=== PATIENT | male | born 1990 | race Two or more races ===

== ENCOUNTER 2019-05-22 11:56 | Inpatient (IN) | payer BC ==
[2019-05-22] VITALS (8 sets, daily range): BP systolic 66–141; BP diastolic 33–76
[~2019-05-22] VITALS: Ht 180.3 cm; Wt 232.7 kg
[2019-05-22] MEDS ORDERED: VANCOMYCIN PER PHARMACY MC PRN (12:45)
[2019-05-22] MEDS: IV NORMAL SALINE 1000ML BAG 1,000 ML IV SCH ×5 (12:47→23:58)
[2019-05-22 12:50] LABS: BASO % 0 % (0-3); EOS % 0 % (0-3); HEMATOCRIT 49.2 % (39.0-53.0); HEMOGLOBIN 16.6 g/dL (13.0-17.5); LYMPH # 0.5 x10^3/uL (1.0-4.8); LYMPH % 2 % (24-48); MEAN CORPUSCULAR HEMOGLOBIN 29 pg (25-35); MEAN CORPUSCULAR HGB CONC 34 g/dL (31-37); MEAN CORPUSCULAR VOLUME 85 fL (79-100); MONO % 5 % (0-9); NEUT # 20.3 x10^3/uL (1.8-7.7); NEUT % 93 % (31-73); PLATELET COUNT 192 x10^3/uL (140-400); WHITE BLOOD COUNT 21.8 x10^3/uL (4.0-11.0)
--- NOTE | 2019-05-22 12:57 | PHYS DOC ---
Past Medical History Past Medical History: Hypertension (MOE DIAS APRN) Past Surgical History: No Surgical History (MOE DIAS APRN) Alcohol Use: Rarely Drug Use: None (MOE DIAS APRN) Adult General Chief Complaint Chief Complaint: CELLULITIS HPI HPI Patient is a 28 year old male who presents with this morning began running a fever, nausea and having right lower leg redness and burning. Patient rates his pain 8 out of 10. Patient states he is also having tingling in his right toe. (MOE DIAS APRN) Review of Systems Review of Systems Constitutional: fever or chills [] Respiratory: Denies cough. + shortness of breath [] GI: Denies abdominal pain. +nausea, denies vomiting, bloody stools or diarrhea [] Integument: Right lower leg redness and swelling. Denies rash or skin lesions [] All other systems were reviewed and found to be within normal limits, except as documented in this note. (MOE DIAS APRN) Current Medications Current Medications Current Medications Medications (Trade) Dose Ordered Sig/Gina Start Time Stop Time Status Last Admin Dose Admin Acetaminophen (Tylenol) 1,000 mg 1X ONCE 05/22/19 13:00 05/22/19 13:01 DC 05/22/19 13:08 1,000 MG Fentanyl Citrate (Fentanyl 2ml Vial) 50 mcg PRN Q1HR PRN 05/22/19 13:45 05/23/19 13:44 05/22/19 14:41 50 MCG Ondansetron HCl (Zofran) 4 mg PRN Q8HRS PRN 05/22/19 13:45 05/23/19 13:44 05/22/19 17:10 4 MG Piperacillin Sod/ Tazobactam Sod 3.375 gm/Sodium Chloride 50 ml @ 100 mls/hr 1X ONCE 05/22/19 13:45 05/22/19 14:14 DC 05/22/19 14:15 100 MLS/HR Sodium Chloride 1,000 ml @ 2,250 mls/hr Q27M 05/22/19 12:33 05/22/19 13:33 DC 05/22/19 16:17 2,250 MLS/HR Vancomycin HCl (Vanco Per Pharmacy) 1 each PRN DAILY PRN 05/22/19 12:45 05/22/19 15:19 DC Vancomycin HCl 2 gm/Sodium Chloride 500 ml @ 250 mls/hr 1X ONCE 05/22/19 13:00 05/22/19 14:59 DC 05/22/19 13:34 250 MLS/HR (XIOMARA ERNANDEZ MD) Allergies Allergies Allergies Coded Allergies Type Severity Reaction Last Updated Verified shellfish derived Allergy Unknown 05/22/19 Yes (XIOMARA ERNANDEZ MD) Physical Exam Physical Exam Constitutional: Well developed, well nourished, no acute distress, non-toxic appearance. [] HENT: Normocephalic, atraumatic, bilateral external ears normal, oropharynx moist, no oral exudates, nose normal. [] Eyes: PERRLA, EOMI, conjunctiva normal, no discharge. [] Neck: Normal range of motion, no tenderness, supple, no stridor. [] Cardiovascular:Heart rate regular tachy rhythm, no murmur [] Lungs & Thorax: Bilateral breath sounds diminished to auscultation [] Abdomen: Bowel sounds normal, soft, no tenderness, no masses, no pulsatile masses. [] Skin:Right lower leg redness and heat. Warm, dry, no erythema, no rash. [] Extremities: Right lower leg tenderness, no cyanosis, no clubbing, ROM intact, Bilateral lower leg 3+ edema. [] Neurologic: Alert and oriented X 3, normal motor function, normal sensory function, no focal deficits noted. [] Psychologic: Affect normal, judgement normal, mood normal. [] (ARUN,MOE Brown APRN) Current Patient Data Vital Signs Vital Signs Date Time Temp Pulse Resp B/P (MAP) Pulse Ox O2 Delivery O2 Flow Rate FiO2 05/22/19 13:40 121 24 91/45 (60) 99 Nasal Cannula 2.0 05/22/19 13:15 99.8 99.8 (XIOMARA ERNANDEZ MD) Lab Values Laboratory Tests Test 05/22/19 12:25 05/22/19 12:40 White Blood Count 21.8 x10^3/uL (4.0-11.0) H Red Blood Count 5.80 x10^6/uL (4.30-5.70) H Hemoglobin 16.6 g/dL (13.0-17.5) Hematocrit 49.2 % (39.0-53.0) Mean Corpuscular Volume 85 fL (79-100) Mean Corpuscular Hemoglobin 29 pg (25-35) Mean Corpuscular Hemoglobin Concent 34 g/dL (31-37) Red Cell Distribution Width 14.0 % (11.5-14.5) Platelet Count 192 x10^3/uL (140-400) Neutrophils (%) (Auto) 93 % (31-73) H Lymphocytes (%) (Auto) 2 % (24-48) L Monocytes (%) (Auto) 5 % (0-9) Eosinophils (%) (Auto) 0 % (0-3) Basophils (%) (Auto) 0 % (0-3) Neutrophils # (Auto) 20.3 x10^3/uL (1.8-7.7) H Lymphocytes # (Auto) 0.5 x10^3/uL (1.0-4.8) L Monocytes # (Auto) 1.0 x10^3/uL (0.0-1.1) Eosinophils # (Auto) 0.0 x10^3/uL (0.0-0.7) Basophils # (Auto) 0.0 x10^3/uL (0.0-0.2) Segmented Neutrophils % 71 % (35-66) H Band Neutrophils % 16 % (0-9) H Lymphocytes % 3 % (24-48) L Monocytes % 10 % (0-10) Toxic Granulation Slight Platelet Estimate Adequate (ADEQUATE) Prothrombin Time 14.5 SEC (11.7-14.0) H Prothrombin Time INR 1.2 (0.8-1.1) H Sodium Level 137 mmol/L (136-145) Potassium Level 3.8 mmol/L (3.5-5.1) Chloride Level 100 mmol/L (98-107) Carbon Dioxide Level 29 mmol/L (21-32) Anion Gap 8 (6-14) Blood Urea Nitrogen 22 mg/dL (8-26) Creatinine 2.1 mg/dL (0.7-1.3) H Estimated GFR (Cockcroft-Gault) 38.1 BUN/Creatinine Ratio 10 (6-20) Glucose Level 98 mg/dL (70-99) Lactic Acid Level 3.7 mmol/L (0.4-2.0) H Calcium Level 9.5 mg/dL (8.5-10.1) Total Bilirubin 1.2 mg/dL (0.2-1.0) H Aspartate Amino Transferase (AST) 35 U/L (15-37) Alanine Aminotransferase (ALT) 88 U/L (16-63) H Alkaline Phosphatase 60 U/L (46-116) Creatine Kinase 127 U/L (39-308) Troponin I Quantitative < 0.017 ng/mL (0.000-0.055) PI-Imr-E-Type Natriuretic Peptide 212 pg/mL (0-124) H Total Protein 7.9 g/dL (6.4-8.2) Albumin 3.4 g/dL (3.4-5.0) Albumin/Globulin Ratio 0.8 (1.0-1.7) L Procalcitonin 37.29 ng/mL (0.00-0.10) H Influenza Type A Antigen Negative (NEGATIVE) Influenza Type B Antigen Negative (NEGATIVE) Laboratory Tests 05/22/19 12:25 Laboratory Tests 05/22/19 12:25 (XIOMAAR ERNANDEZ MD) Lab Values Laboratory Tests Test 05/22/19 12:25 05/22/19 12:40 White Blood Count 21.8 x10^3/uL (4.0-11.0) H Red Blood Count 5.80 x10^6/uL (4.30-5.70) H Hemoglobin 16.6 g/dL (13.0-17.5) Hematocrit 49.2 % (39.0-53.0) Mean Corpuscular Volume 85 fL (79-100) Mean Corpuscular Hemoglobin 29 pg (25-35) Mean Corpuscular Hemoglobin Concent 34 g/dL (31-37) Red Cell Distribution Width 14.0 % (11.5-14.5) Platelet Count 192 x10^3/uL (140-400) Neutrophils (%) (Auto) 93 % (31-73) H Lymphocytes (%) (Auto) 2 % (24-48) L Monocytes (%) (Auto) 5 % (0-9) Eosinophils (%) (Auto) 0 % (0-3) Basophils (%) (Auto) 0 % (0-3) Neutrophils # (Auto) 20.3 x10^3/uL (1.8-7.7) H Lymphocytes # (Auto) 0.5 x10^3/uL (1.0-4.8) L Monocytes # (Auto) 1.0 x10^3/uL (0.0-1.1) Eosinophils # (Auto) 0.0 x10^3/uL (0.0-0.7) Basophils # (Auto) 0.0 x10^3/uL (0.0-0.2) Platelet Estimate Pending Prothrombin Time 14.5 SEC (11.7-14.0) H Prothrombin Time INR 1.2 (0.8-1.1) H Sodium Level 137 mmol/L (136-145) Potassium Level 3.8 mmol/L (3.5-5.1) Chloride Level 100 mmol/L (98-107) Carbon Dioxide Level 29 mmol/L (21-32) Anion Gap 8 (6-14) Blood Urea Nitrogen 22 mg/dL (8-26) Creatinine 2.1 mg/dL (0.7-1.3) H Estimated GFR (Cockcroft-Gault) 38.1 BUN/Creatinine Ratio 10 (6-20) Glucose Level 98 mg/dL (70-99) Lactic Acid Level 3.7 mmol/L (0.4-2.0) H Calcium Level 9.5 mg/dL (8.5-10.1) Total Bilirubin 1.2 mg/dL (0.2-1.0) H Aspartate Amino Transferase (AST) 35 U/L (15-37) Alanine Aminotransferase (ALT) 88 U/L (16-63) H Alkaline Phosphatase 60 U/L (46-116) Troponin I Quantitative < 0.017 ng/mL (0.000-0.055) QG-Hgd-A-Type Natriuretic Peptide 212 pg/mL (0-124) H Total Protein 7.9 g/dL (6.4-8.2) Albumin 3.4 g/dL (3.4-5.0) Albumin/Globulin Ratio 0.8 (1.0-1.7) L Procalcitonin 37.29 ng/mL (0.00-0.10) H Influenza Type A Antigen Negative (NEGATIVE) Influenza Type B Antigen Negative (NEGATIVE) Laboratory Tests 05/22/19 12:25 Laboratory Tests 05/22/19 12:25 (MOE DIAS APRN) EKG EKG Sinus tachycardia and no STEMI[] Interpretation Time: [address] ERNANDEZ (MOE DIAS APRN) Radiology/Procedures Radiology/Procedures [] (MOE DIAS APRN) Impressions: [facility] [address] [place] [address] IMAGING REPORT Signed PATIENT: MONI MG ACCOUNT: [id number] : 1990 LOCATION: ER AGE: 28 SEX: M EXAM STATUS: PRE ER ORD. PHYSICIAN: MOE DIAS APRN REASON: soa. bilateral LE swelling PROCEDURE: PORTABLE CHEST 1V Study: PORTABLE CHEST 1V Indication: Shortness of air. Bilateral lower extremity swelling. Comparison: None. Findings/ Impression: Degraded study due to patient body habitus. Apparent mild prominence of the cardiomediastinal silhouette could be in part projectional. There are no findings to suggest decompensated heart failure. No large effusion, lobar infiltrate or pneumothorax. Electronically signed by: JOCELYNE WATERS MD (05/22/2019 1:14 PM) [facility] [place] DICTATED and SIGNED BY: JOCELYNE WATERS MD DATE: 05/22/191313 (MOE DIAS APRN) Course & Med Decision Making Course & Med Decision Making Bilateral lower leg 3+ swelling that is nonpitting. Patient states that he has been this swollen for quite some time. Patient states his only history is hypertension. Patient states this is normal for him. Patient's right lower leg is tender to palpation there is no blistering or drainage from the leg. It is reddened. Alert and oriented. Speaks in full clear sentences. PERRLA. Patient states he is also short of breath this morning but denies any recent illness or cough. And is soft and nontender. Patient is tachycardic and febrile at 100 today. Lungs are diminished in all lobes throughout. Patient is morbidly obese. Patient denies chest pain, abdominal pain, vomiting, diarrhea, headache, dizziness, syncope, weakness, visual changes. Skin pink warm and dry. Mucous membranes moist. WBC is 21.8. Chest x-ray shows no acute findings. Lactic acid is 3.7. Blood pressure upon arrival was 93/45. Nursing staff stated that after first dose of fentanyl patient's examination went to 86% and they put him on 2 L of O2 and he is at 98%. I Have spoken to Dr. Munoz for admission. Patient is started on his second bag of normal saline and I have ordered for vancomycin. Dr. Munoz has ordered Zosyn. Patient going to ICU. I have spoken to Dr Waldron and told him about the patients blood pressure dropping to 82/44. He states to call Anesthesia to put a central in him so a pressor can be started. I have called anesthesia per Dr. Munoz to have a central line could be placed. Anesthesia is refusing and states to have hospitalist or interventional radiology to come and place central line. (MOE DIAS APRN) Course & Med Decision Making I was working in the ER during the course of this patient's visit. I was available for consultation as needed, but I was not directly involved in the care of this patient. (XIOMARA ERNANDEZ MD) Dragon Disclaimer Dragon Disclaimer This electronic medical record was generated, in whole or in part, using a voice recognition dictation system. (MOE DIAS APRN) Date and Time of Reassessment Date: May 22, 2019 Time: 12:56 (MOE DIAS APRN) Fluid Challenge Is the fluid challenge complet: No IBW Target Volume Used: No BMI > 30: Yes (MOE DIAS APRN) Vital Signs Vital Signs: Vital Signs Date Time Temp Pulse Resp B/P (MAP) Pulse Ox O2 Delivery O2 Flow Rate FiO2 05/22/19 13:40 121 24 91/45 (60) 99 Nasal Cannula 2.0 05/22/19 13:15 99.8 99.8 (XIOMARA ERANNDEZ MD) Temperature Source: Oral (MOE DIAS APRN) Temperature Source: Oral (XIOMARA ERNANDEZ MD) Respirations Respiratory Effort: Non-Labored Respiratory Pattern: Normal (MOE DIAS APRN) Cardiovascular Pulse Rhythm: Regular Heart: Nml S1, S2, no murmurs (SHAWNA DIASA Kevin JARAMILLO) Lung Sounds Breath Sounds: Diminished (MOE DIAS APRN) Capillary Refil Capillary Refill: Rt Hand > 3 seconds (MOE DIAS APRN) Peripheral Pulse Pulse Location: Radial Pulse Strength: Normal (2+) Pulse Assessment Method: Monitor (MOE DIAS APRN) Pulse Assessment Method: Monitor (XIOMARA ERNANDEZ MD) Integumentary Skin: Warm Skin Moisture: Dry Skin Turgor: Normal Skin Color: warm Fingernail Color: WNL (MOE DIAS APRN) Skin Moisture: Dry (XIOMARA ERNANDEZ MD) Departure Departure Impression: Primary Impression: Sepsis Additional Impression: Cellulitis Disposition: 09 ADMITTED INPATIENT Admitting Physician: ZEHRA (MOE DIAS APRN) Condition: STABLE Problem Qualifiers Primary Impression: Sepsis Sepsis type: sepsis due to unspecified organism Sepsis acute organ dysfunction status: unspecified Qualified Codes: A41.9 - Sepsis, unspecified organism Additional Impression: Cellulitis Site of cellulitis: extremity Site of cellulitis of extremity: lower extremity Laterality: right Qualified Codes: L03.115 - Cellulitis of right lower limb MOE DIAS APRN May 22, 2019 12:57 XIOMARA ERNANDEZ MD May 23, 2019 07:52
[2019-05-22 12:58] LABS: PROTHROMBIN TIME PATIENT 14.5 SEC (11.7-14.0)
[2019-05-22 13:00] LABS: CALCIUM 9.5 mg/dL (8.5-10.1); CREATININE 2.1 mg/dL (0.7-1.3); GFR 38.1; POTASSIUM 3.8 mmol/L (3.5-5.1)
[2019-05-22] MEDS ORDERED: ONDANSETRON PF 4 MG/2 ML VIAL. IV ONE (13:00)
[2019-05-22] MEDS ORDERED: ACETAMINOPHEN 500 MG TABLET PO ONE (13:00)
[2019-05-22] MEDS ORDERED: VANCOMYCIN 2 GM in IV NORMAL SALINE 500ML BAG 500 ML IV ONE (13:00)
[2019-05-22] MEDS ORDERED: fentaNYL PF VIAL 100 MCG/2 ML VIAL IVP ONE (13:00)
[2019-05-22 13:06] LABS: ALBUMIN 3.4 g/dL (3.4-5.0); ALBUMIN/GLOBULIN RATIO 0.8 (1.0-1.7); TOTAL BILIRUBIN 1.2 mg/dL (0.2-1.0); TOTAL PROTEIN 7.9 g/dL (6.4-8.2)
[2019-05-22 13:09] LABS: INFLUENZA A PATIENT NEGATIVE (NEGATIVE); INFLUENZA B PATIENT NEGATIVE (NEGATIVE)
--- NOTE | 2019-05-22 13:16 | RAD ---
Study: PORTABLE CHEST 1V Indication: Shortness of air. Bilateral lower extremity swelling. Comparison: None. Findings/ Impression: Degraded study due to patient body habitus. Apparent mild prominence of the cardiomediastinal silhouette could be in part projectional. There are no findings to suggest decompensated heart failure. No large effusion, lobar infiltrate or pneumothorax. Electronically signed by: JOCELYNE WATERS MD (05/22/2019 1:14 PM) [facility]
--- NOTE | 2019-05-22 13:39 | PDOC1 ---
History and Physical Date of Admission Date of Admission DATE: 05/22/19 TIME: 13:39 Identification/Chief Complaint Chief Complaint Leg pain, swelling, fever Source Source: Patient History of Present Illness History of Present Illness Mr Ramos is a 28yo M w/ PMHx HTN, morbid obesity who comes to ED for fever, chills and RLE pain. 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 He does have some baseline swelling of his legs. He has had no injuries, long drives, or recent sick contacts. In ED was noted tachycardic and febrile. He is a non-smoker, has been working on losing weight with bariatric surgery since this summer, and has lost 13 pounds intentionally over the past month. Notably on labs WBC is 21.8. Chest x-ray shows no acute findings. Lactic acid is 3.7. Blood pressure upon arrival was 93/45. Nursing staff stated that after first dose of fentanyl patient's examination went to 86% and they put him on 2 L of O2 and he is at 98%. He was given 2250mL saline bolus, vancomycin, and zosyn IV and called for admission to ICU. Given his low blood pressure despite 2L bolus levophed was initiated as well. Past Medical History Cardiovascular: HTN Pulmonary: No pertinent hx GI: No pertinent hx Heme/Onc: No pertinent hx Hepatobiliary: No pertinent hx Psych: No pertinent hx Rheumatologic: No pertinent hx Infectious disease: No pertinent hx ENT: No pertinent hx Renal/: No pertinent hx Endocrine: No pertinent hx Dermatology: No pertinent hx Past Surgical History Past Surgical History: No pertinent history Family History Family History: High Cholestrol, Hypertension Social History Smoke: No ALCOHOL: none Drugs: None Current Problem List Problem List Problems Medical Problems: (1) Cellulitis Status: Acute (2) Sepsis Status: Acute Current Medications Current Medications Current Medications Sodium Chloride 1,000 ml @ 2,250 mls/hr Q27M IV Last administered on 05/22/19at 13:18; Start 05/22/19 at 12:33; Stop 05/22/19 at 13:33; Status DC Vancomycin HCl (Vanco Per Pharmacy) 1 each PRN DAILY PRN [facility] SEE COMMENTS; Start 05/22/19 at 12:45; Status UNV Vancomycin HCl 2 gm/Sodium Chloride 500 ml @ 250 mls/hr 1X ONCE IV Last administered on 05/22/19at 13:34; Start 05/22/19 at 13:00; Stop 05/22/19 at 14:59 Fentanyl Citrate (Fentanyl 2ml Vial) 50 mcg 1X ONCE IVP Last administered on 05/22/19at 13:10; Start 05/22/19 at 13:00; Stop 05/22/19 at 13:01; Status DC Ondansetron HCl (Zofran) 4 mg 1X ONCE IV Last administered on 05/22/19at 13:09; Start 05/22/19 at 13:00; Stop 05/22/19 at 13:01; Status DC Acetaminophen (Tylenol) 1,000 mg 1X ONCE PO Last administered on 05/22/19at 13:08; Start 05/22/19 at 13:00; Stop 05/22/19 at 13:01; Status DC Piperacillin Sod/ Tazobactam Sod 3.375 gm/Sodium Chloride 50 ml @ 100 mls/hr 1X ONCE IV ; Start 05/22/19 at 13:45; Stop 05/22/19 at 14:14 Allergies Allergies: Coded Allergies: shellfish derived (Verified Allergy, Unknown, 05/22/19) ROS General: YES: Chills, Fatigue, Malaise, Appetite; No: Night Sweats, Other PSYCHOLOGICAL ROS: No: Anxiety, Behavioral Disorder, Concentration difficultie, Decreased libido, Depression, Disorientation, Hallucinations, Hostility, Irritablity, Memory difficulties, Mood Swings, Obsessive thoughts, Physical abuse, Sexual abuse, Sleep disturbances, Suicidal ideation, Other Eyes: No Blurry vision, No Decreased vision, No Double vision, No Dry eyes, No Excessive tearing, No Eye Pain, No Itchy Eyes, No Loss of vision, No Photophobia, No Scotomata, No Uses contacts, No Uses glasses, No Other HEENT: No: Heacaches, Visual Changes, Hearing change, Nasal congestion, Nasal discharge, Oral lesions, Sinus pain, Sore Throat, Epistaxis, Sneezing, Snoring, Tinnitus, Vertigo, Vocal changes, Other ALLERGY AND IMMUNOLOGY: No: Hives, Insect Bite Sensitivity, Itchy/Watery Eyes, Nasal Congestion, Post Nasal Drip, Seasonal Allergies, Other Hematological and Lymphatic: No: Bleeding Problems, Blood Clots, Blood Transfusions, Brusing, Night Sweats, Pallor, Swollen Lymph Nodes, Other ENDOCRINE: No: Breast Changes, Galactorrhea, Hair Pattern Changes, Hot Flashes, Malaise/lethargy, Mood Swings, Palpitations, Polydipsia/polyuria, Skin Changes, Temperature Intolerance, Unexpected Weight Changes, Other Breast: No New/Changing Breast Lumps, No Nipple changes, No Nipple discharge, No Other Respiratory: YES: Shortness of breath; No: Cough, Hemoptysis, Orthopnea, Pleuritic Pain, SOB with excertion, Sputum Changes, Stridor, Tachypnea, Wheezing, Other Cardiovascular: No Chest Pain, No Palpitations, No Orthopnea, No Paroxysmal Noc. Dyspnea, No Edema, No Lt Headedness, No Other Gastrointestinal: Yes Nausea; No Vomiting, No Abdominal Pain, No Diarrhea, No Constipation, No Melena, No Hematochezia, No Other Genitourinary: No Dysuria, No Frequency, No Incontinence, No Hematuria, No Retention, No Discharge, No Urgency, No Pain, No Flank Pain, No Other, No , No , No , No , No , No , No Musculoskeletal: No Gait Disturbance, No Joint Pain, No Joint Stiffness, No Joint Swelling, No Muscle Pain, No Muscular Weakness, No Pain In:, No Swelling In:, No Other Neurological: No Behavorial Changes, No Bowel/Bladder ControlChng, No Confusion, No Dizziness, No Gait Disturbance, No Headaches, No Impaired Coord/balance, No Memory Loss, No Numbness/Tingling, No Seizures, No Speech Problems, No Tremors, No Visual Changes, No Weakness, No Other Skin: No Dry Skin, No Eczema, No Hair Changes, No Lumps, No Mole Changes, No Mottling, No Nail Changes, No Pruritus, No Rash, No Skin Lesion Changes, No Other, No Acne Physical Exam General: Alert, Oriented X3, Cooperative, No acute distress HEENT: Atraumatic, PERRLA, EOMI, Mucous membr. moist/pink Lungs: Clear to auscultation, Normal air movement Heart: S1S2, RRR, no thrills, no rubs, no gallops, no murmurs Abdomen: Normal bowel sounds, Soft, No hepatosplenomegaly, No masses, Other (diffuse mild tenderness) Rectal Exam: not examined Extremities: Other (RLE tender, swollen 3+) Skin: Other (RLE rash as below) Neuro: Normal speech, Strength at 5/5 X4 ext, Normal tone, Sensation intact, Cranial nerves 3-12 NL, Reflexes 2+ Psych/Mental Status: Mental status NL, Mood NL Vitals Vitals Vital Signs Date Time Temp Pulse Resp B/P (MAP) Pulse Ox O2 Delivery O2 Flow Rate FiO2 05/22/19 13:22 86 Room Air 05/22/19 13:15 99.8 99.8 05/22/19 13:10 21 05/22/19 12:08 135 93/45 (61) Labs Labs Laboratory Tests Test 05/22/19 12:25 05/22/19 12:40 White Blood Count 21.8 x10^3/uL (4.0-11.0) Red Blood Count 5.80 x10^6/uL (4.30-5.70) Hemoglobin 16.6 g/dL (13.0-17.5) Hematocrit 49.2 % (39.0-53.0) Mean Corpuscular Volume 85 fL (79-100) Mean Corpuscular Hemoglobin 29 pg (25-35) Mean Corpuscular Hemoglobin Concent 34 g/dL (31-37) Red Cell Distribution Width 14.0 % (11.5-14.5) Platelet Count 192 x10^3/uL (140-400) Neutrophils (%) (Auto) 93 % (31-73) Lymphocytes (%) (Auto) 2 % (24-48) Monocytes (%) (Auto) 5 % (0-9) Eosinophils (%) (Auto) 0 % (0-3) Basophils (%) (Auto) 0 % (0-3) Neutrophils # (Auto) 20.3 x10^3/uL (1.8-7.7) Lymphocytes # (Auto) 0.5 x10^3/uL (1.0-4.8) Monocytes # (Auto) 1.0 x10^3/uL (0.0-1.1) Eosinophils # (Auto) 0.0 x10^3/uL (0.0-0.7) Basophils # (Auto) 0.0 x10^3/uL (0.0-0.2) Prothrombin Time 14.5 SEC (11.7-14.0) Prothromb Time International Ratio 1.2 (0.8-1.1) Sodium Level 137 mmol/L (136-145) Potassium Level 3.8 mmol/L (3.5-5.1) Chloride Level 100 mmol/L (98-107) Carbon Dioxide Level 29 mmol/L (21-32) Anion Gap 8 (6-14) Blood Urea Nitrogen 22 mg/dL (8-26) Creatinine 2.1 mg/dL (0.7-1.3) Estimated GFR (Cockcroft-Gault) 38.1 BUN/Creatinine Ratio 10 (6-20) Glucose Level 98 mg/dL (70-99) Lactic Acid Level 3.7 mmol/L (0.4-2.0) Calcium Level 9.5 mg/dL (8.5-10.1) Total Bilirubin 1.2 mg/dL (0.2-1.0) Aspartate Amino Transf (AST/SGOT) 35 U/L (15-37) Alanine Aminotransferase (ALT/SGPT) 88 U/L (16-63) Alkaline Phosphatase 60 U/L (46-116) Troponin I Quantitative < 0.017 ng/mL (0.000-0.055) IL-Lvo-Z-Type Natriuretic Peptide 212 pg/mL (0-124) Total Protein 7.9 g/dL (6.4-8.2) Albumin 3.4 g/dL (3.4-5.0) Albumin/Globulin Ratio 0.8 (1.0-1.7) Procalcitonin 37.29 ng/mL (0.00-0.10) Influenza Type A Antigen Negative (NEGATIVE) Influenza Type B Antigen Negative (NEGATIVE) Laboratory Tests Test 05/22/19 12:25 05/22/19 12:40 White Blood Count 21.8 x10^3/uL (4.0-11.0) Red Blood Count 5.80 x10^6/uL (4.30-5.70) Hemoglobin 16.6 g/dL (13.0-17.5) Hematocrit 49.2 % (39.0-53.0) Mean Corpuscular Volume 85 fL (79-100) Mean Corpuscular Hemoglobin 29 pg (25-35) Mean Corpuscular Hemoglobin Concent 34 g/dL (31-37) Red Cell Distribution Width 14.0 % (11.5-14.5) Platelet Count 192 x10^3/uL (140-400) Neutrophils (%) (Auto) 93 % (31-73) Lymphocytes (%) (Auto) 2 % (24-48) Monocytes (%) (Auto) 5 % (0-9) Eosinophils (%) (Auto) 0 % (0-3) Basophils (%) (Auto) 0 % (0-3) Neutrophils # (Auto) 20.3 x10^3/uL (1.8-7.7) Lymphocytes # (Auto) 0.5 x10^3/uL (1.0-4.8) Monocytes # (Auto) 1.0 x10^3/uL (0.0-1.1) Eosinophils # (Auto) 0.0 x10^3/uL (0.0-0.7) Basophils # (Auto) 0.0 x10^3/uL (0.0-0.2) Prothrombin Time 14.5 SEC (11.7-14.0) Prothromb Time International Ratio 1.2 (0.8-1.1) Sodium Level 137 mmol/L (136-145) Potassium Level 3.8 mmol/L (3.5-5.1) Chloride Level 100 mmol/L (98-107) Carbon Dioxide Level 29 mmol/L (21-32) Anion Gap 8 (6-14) Blood Urea Nitrogen 22 mg/dL (8-26) Creatinine 2.1 mg/dL (0.7-1.3) Estimated GFR (Cockcroft-Gault) 38.1 BUN/Creatinine Ratio 10 (6-20) Glucose Level 98 mg/dL (70-99) Lactic Acid Level 3.7 mmol/L (0.4-2.0) Calcium Level 9.5 mg/dL (8.5-10.1) Total Bilirubin 1.2 mg/dL (0.2-1.0) Aspartate Amino Transf (AST/SGOT) 35 U/L (15-37) Alanine Aminotransferase (ALT/SGPT) 88 U/L (16-63) Alkaline Phosphatase 60 U/L (46-116) Troponin I Quantitative < 0.017 ng/mL (0.000-0.055) IT-Ivs-A-Type Natriuretic Peptide 212 pg/mL (0-124) Total Protein 7.9 g/dL (6.4-8.2) Albumin 3.4 g/dL (3.4-5.0) Albumin/Globulin Ratio 0.8 (1.0-1.7) Procalcitonin 37.29 ng/mL (0.00-0.10) Influenza Type A Antigen Negative (NEGATIVE) Influenza Type B Antigen Negative (NEGATIVE) Images Images CXR - Degraded study due to patient body habitus. Apparent mild prominence of the cardiomediastinal silhouette could be in part projectional. There are no fi ndings to suggest decompensated heart failure. No large effusion, lobar infiltrate or pneumothorax. VTE Prophylaxis Ordered VTE Prophylaxis Devices: No VTE Pharmacological Prophylaxi: Yes Assessment/Plan Assessment/Plan A/P: RLE cellulitis - pretty severe, sudden onset. With his sedentary job, no hx of DM2, will check for DVT. Empiric vancomycin, zosyn, micafungin. Will consult ID as he is also in septic shock Septic shock - Fever 102.3F, WBC > 20, not responsive to 2L IV fluid bolus, ICU admission, levophed. ID consultation. Empiric antibiotics as above. source is RLE cellulitis. Will give colloids after initial fluids as he also has ABDIEL Lactic acidosis - 2/2 septic shock, will trend ABDIEL - likely vasomotor nephropathy, but also ATN from hypotension. Will continue hydration. If his renal function is not improved in the morning, will ask nephrology to see. Pressors may also help Hypoxia - likely 2/2 opioids as he does not have any pulmonary history, CXR relatively clear HTN - hold antihypertensive for septic shock Morbid obesity - already has excellent counseling, has physician led weight loss, plans for bariatric surgery in the next year or so. I have encouraged him in this endeavor Elevated bilirubin and INR - likely 2/2 abrupt weight loss, fasting. Will trend. He may also have NAFLD FEN - General diet PPX - heparin TID FULL CODE Dispo - ICU for septic shock 49 minutes CC time KHADAR SUNG MD May 22, 2019 13:39
[2019-05-22] MEDS ORDERED: ONDANSETRON PF 4 MG/2 ML VIAL. IV PRN (13:45)
[2019-05-22] MEDS ORDERED: PIPERACILLIN/TAZOBACTAM 3.375 GM in IV NORMAL SALINE 50ML 50 ML IV ONE (13:45)
[2019-05-22] MEDS ORDERED: fentaNYL PF VIAL 100 MCG/2 ML VIAL IV PRN (13:45)
[2019-05-22] MEDS ORDERED: NOREPINEPHRIN 8MG/250ML PREMIX 250 ML IV ONE (14:15)
[2019-05-22 14:41] LABS: % BANDS 16 % (0-9); % LYMPHS 3 % (24-48); % MONOS 10 % (0-10); % SEGS 71 % (35-66)
[2019-05-22 14:43] LABS: PLT ESTIMATE ADEQUATE (ADEQUATE)
[2019-05-22 14:44] LABS: TOXIC GRANULATION SLIGHT
--- NOTE | 2019-05-22 15:17 | PDOC ---
Infectious Disease Note Vital Sign Vital Signs Vital Signs Date Time Temp Pulse Resp B/P (MAP) Pulse Ox O2 Delivery O2 Flow Rate FiO2 05/22/19 13:22 86 Room Air 05/22/19 13:15 99.8 99.8 05/22/19 13:10 21 05/22/19 12:08 135 93/45 (61) Labs Lab Laboratory Tests Test 05/22/19 12:25 05/22/19 12:40 White Blood Count 21.8 x10^3/uL (4.0-11.0) Red Blood Count 5.80 x10^6/uL (4.30-5.70) Hemoglobin 16.6 g/dL (13.0-17.5) Hematocrit 49.2 % (39.0-53.0) Mean Corpuscular Volume 85 fL (79-100) Mean Corpuscular Hemoglobin 29 pg (25-35) Mean Corpuscular Hemoglobin Concent 34 g/dL (31-37) Red Cell Distribution Width 14.0 % (11.5-14.5) Platelet Count 192 x10^3/uL (140-400) Neutrophils (%) (Auto) 93 % (31-73) Lymphocytes (%) (Auto) 2 % (24-48) Monocytes (%) (Auto) 5 % (0-9) Eosinophils (%) (Auto) 0 % (0-3) Basophils (%) (Auto) 0 % (0-3) Neutrophils # (Auto) 20.3 x10^3/uL (1.8-7.7) Lymphocytes # (Auto) 0.5 x10^3/uL (1.0-4.8) Monocytes # (Auto) 1.0 x10^3/uL (0.0-1.1) Eosinophils # (Auto) 0.0 x10^3/uL (0.0-0.7) Basophils # (Auto) 0.0 x10^3/uL (0.0-0.2) Segmented Neutrophils % 71 % (35-66) Band Neutrophils % 16 % (0-9) Lymphocytes % 3 % (24-48) Monocytes % 10 % (0-10) Toxic Granulation Slight Platelet Estimate Adequate (ADEQUATE) Prothrombin Time 14.5 SEC (11.7-14.0) Prothromb Time International Ratio 1.2 (0.8-1.1) Sodium Level 137 mmol/L (136-145) Potassium Level 3.8 mmol/L (3.5-5.1) Chloride Level 100 mmol/L (98-107) Carbon Dioxide Level 29 mmol/L (21-32) Anion Gap 8 (6-14) Blood Urea Nitrogen 22 mg/dL (8-26) Creatinine 2.1 mg/dL (0.7-1.3) Estimated GFR (Cockcroft-Gault) 38.1 BUN/Creatinine Ratio 10 (6-20) Glucose Level 98 mg/dL (70-99) Lactic Acid Level 3.7 mmol/L (0.4-2.0) Calcium Level 9.5 mg/dL (8.5-10.1) Total Bilirubin 1.2 mg/dL (0.2-1.0) Aspartate Amino Transf (AST/SGOT) 35 U/L (15-37) Alanine Aminotransferase (ALT/SGPT) 88 U/L (16-63) Alkaline Phosphatase 60 U/L (46-116) Troponin I Quantitative < 0.017 ng/mL (0.000-0.055) BD-Dfp-P-Type Natriuretic Peptide 212 pg/mL (0-124) Total Protein 7.9 g/dL (6.4-8.2) Albumin 3.4 g/dL (3.4-5.0) Albumin/Globulin Ratio 0.8 (1.0-1.7) Procalcitonin 37.29 ng/mL (0.00-0.10) Influenza Type A Antigen Negative (NEGATIVE) Influenza Type B Antigen Negative (NEGATIVE) Objective Assessment pt seen, consult dictated Plan Plan of Care / MUKESH GAYLE MD May 22, 2019 15:17
[2019-05-22] MEDS ORDERED: traMADol 50 MG TABLET PO PRN (16:00)
[2019-05-22] MEDS ORDERED: ALBUMIN HUMAN 5% 500 ML IV ONE (16:00)
[2019-05-22] MEDS: MICAFUNGIN 100 MG in IV DEXTROSE 5% 100ML 100 ML IV SCH (16:07)
[2019-05-22 16:08] LABS: BILIRUBIN,URINE SMALL (NEG); CLARITY,URINE CLOUDY; NITRITE,URINE NEGATIVE (NEG); PH,URINE 5.5; PROTEIN,URINE 100 mg/dL (NEG-TRACE)
[2019-05-22 16:14] LABS: COLOR,URINE DK YELLOW
[2019-05-22 16:18] LABS: RBC,URINE 0 /HPF (0-2); WBC,URINE OCC /HPF (0-4)
[2019-05-22 16:19] LABS: BACTERIA,URINE 0 /HPF (0-FEW); HYALINE CASTS, URINE FEW /HPF; SQUAMOUS EPITHELIAL CELL,UR OCC /LPF
[2019-05-22] MEDS ORDERED: LIDOCAINE 2% 100 MG/5 ML SYRINGE. ONE (16:47)
[2019-05-22] MEDS ORDERED: LIDOCAINE 1% PF 2 ML VIAL. ONE (16:47)
[2019-05-22] MEDS ORDERED: LIDOCAINE 1% PF 30 ML VIAL. ONE (16:48)
--- NOTE | 2019-05-22 17:03 | PDOC ---
Date and Time I was called at 15:30 regarding central line placement in a septic patient that arrived in the ICU from ED without central access. Needed for pressors and fluids. Sterile prep, large drape,gown,gloves,mask. Chlorasept prep 1% lidocaine local (5ml) Sono used to identify right IJ which was basically collapsed. Vein entered, wire placed and verified to be in IJ with sono. 3 lumen placed and sutured at 17cm. Biopatch,sterile dressing, all 3 ports with blood return were flushed; Of note his CVP is 0 No apparent complications. CXR tip at SVC RA junction. No pneumothorax Current Medications Current Medications Sodium Chloride 1,000 ml @ 2,250 mls/hr Q27M IV Last administered on at 16:17; Start 05/22/19 at 12:33; Stop 05/22/19 at 13:33; Status DC Vancomycin HCl (Vanco Per Pharmacy) 1 each PRN DAILY PRN [facility] SEE COMMENTS; Start 05/22/19 at 12:45; Stop 05/22/19 at 15:19; Status DC Vancomycin HCl 2 gm/Sodium Chloride 500 ml @ 250 mls/hr 1X ONCE IV Last administered on 05/22/19at 13:34; Start 05/22/19 at 13:00; Stop 05/22/19 at 14:59; Status DC Fentanyl Citrate (Fentanyl 2ml Vial) 50 mcg 1X ONCE IVP Last administered on 05/22/19at 13:10; Start 05/22/19 at 13:00; Stop 05/22/19 at 13:01; Status DC Ondansetron HCl (Zofran) 4 mg 1X ONCE IV Last administered on 05/22/19at 13:09; Start 05/22/19 at 13:00; Stop 05/22/19 at 13:01; Status DC Acetaminophen (Tylenol) 1,000 mg 1X ONCE PO Last administered on 05/22/19at 13 :08; Start 05/22/19 at 13:00; Stop 05/22/19 at 13:01; Status DC Piperacillin Sod/ Tazobactam Sod 3.375 gm/Sodium Chloride 50 ml @ 100 mls/hr 1X ONCE IV Last administered on 05/22/19at 14:15; Start 05/22/19 at 13:45; Stop 05/22/19 at 14:14; Status DC Ondansetron HCl (Zofran) 4 mg PRN Q8HRS PRN IV NAUSEA/VOMITING; Start 05/22/19 at 13:45; Stop 05/23/19 at 13:44 Fentanyl Citrate (Fentanyl 2ml Vial) 50 mcg PRN Q1HR PRN IV PAIN Last administered on 05/22/19at 14:41; Start 05/22/19 at 13:45; Stop 05/23/19 at 13:44 Norepinephrine Bitartrate 250 ml @ 42.439 mls/ hr 1X ONCE IV Last administered on 05/22/19at 16:11; Start 05/22/19 at 14:15; Stop 05/22/19 at 20:08 Piperacillin Sod/ Tazobactam Sod 3.375 gm/Sodium Chloride 50 ml @ 100 mls/hr Q6HRS IV ; Start 05/22/19 at 18:00 Micafungin Sodium 100 mg/Dextrose 100 ml @ 100 mls/hr Q24H IV Last administered on 05/22/19at 16:07; Start 05/22/19 at 16:00 Influenza Virus Vaccine Quadrival (Afluria Quad 2019-20 (3yr Up) Syringe) 0.5 ml ONCE ONCE VAX IM ; Start 05/23/19 at 09:00; Stop 05/23/19 at 09:01 Albumin Human 500 ml @ 125 mls/hr 1X ONCE IV Last administered on 05/22/19at 16:15; Start 05/22/19 at 16:00; Stop 05/22/19 at 19:59 Tramadol HCl (Ultram) 50 mg PRN Q6HRS PRN PO PAIN; Start 05/22/19 at 16:00 Hydromorphone HCl (Dilaudid) 0.4 mg PRN Q4HRS PRN IVP PAIN; Start 05/22/19 at 16:00 Heparin Sodium (Porcine) (Heparin Sodium) 5,000 unit Q8HRS SQ ; Start 05/22/19 at 22:00 Lidocaine HCl (Xylocaine-Mpf 1% 2ml Vial) 2 ml STK-MED ONCE .ROUTE ; Start 05/22/19 at 16:47; Stop 05/22/19 at 16:47; Status DC Lidocaine HCl (Lidocaine HCl 2% Abboject) 100 mg STK-MED ONCE .ROUTE ; Start 05/22/19 at 16:47; Stop 05/22/19 at 16:47; Status DC Lidocaine HCl (Xylocaine 1% Pf 30ml Vial) 30 ml STK-MED ONCE .ROUTE ; Start 05/22/19 at 16:48; Stop 05/22/19 at 16:48; Status DC Pertinent Labs/Test Laboratory Tests Test 05/22/19 12:25 05/22/19 12:40 05/22/19 16:00 White Blood Count 21.8 x10^3/uL (4.0-11.0) Red Blood Count 5.80 x10^6/uL (4.30-5.70) Hemoglobin 16.6 g/dL (13.0-17.5) Hematocrit 49.2 % (39.0-53.0) Mean Corpuscular Volume 85 fL (79-100) Mean Corpuscular Hemoglobin 29 pg (25-35) Mean Corpuscular Hemoglobin Concent 34 g/dL (31-37) Red Cell Distribution Width 14.0 % (11.5-14.5) Platelet Count 192 x10^3/uL (140-400) Neutrophils (%) (Auto) 93 % (31-73) Lymphocytes (%) (Auto) 2 % (24-48) Monocytes (%) (Auto) 5 % (0-9) Eosinophils (%) (Auto) 0 % (0-3) Basophils (%) (Auto) 0 % (0-3) Neutrophils # (Auto) 20.3 x10^3/uL (1.8-7.7) Lymphocytes # (Auto) 0.5 x10^3/uL (1.0-4.8) Monocytes # (Auto) 1.0 x10^3/uL (0.0-1.1) Eosinophils # (Auto) 0.0 x10^3/uL (0.0-0.7) Basophils # (Auto) 0.0 x10^3/uL (0.0-0.2) Segmented Neutrophils % 71 % (35-66) Band Neutrophils % 16 % (0-9) Lymphocytes % 3 % (24-48) Monocytes % 10 % (0-10) Toxic Granulation Slight Platelet Estimate Adequate (ADEQUATE) Prothrombin Time 14.5 SEC (11.7-14.0) Prothromb Time International Ratio 1.2 (0.8-1.1) Sodium Level 137 mmol/L (136-145) Potassium Level 3.8 mmol/L (3.5-5.1) Chloride Level 100 mmol/L (98-107) Carbon Dioxide Level 29 mmol/L (21-32) Anion Gap 8 (6-14) Blood Urea Nitrogen 22 mg/dL (8-26) Creatinine 2.1 mg/dL (0.7-1.3) Estimated GFR (Cockcroft-Gault) 38.1 BUN/Creatinine Ratio 10 (6-20) Glucose Level 98 mg/dL (70-99) Lactic Acid Level 3.7 mmol/L (0.4-2.0) 1.8 mmol/L (0.4-2.0) Calcium Level 9.5 mg/dL (8.5-10.1) Total Bilirubin 1.2 mg/dL (0.2-1.0) Aspartate Amino Transf (AST/SGOT) 35 U/L (15-37) Alanine Aminotransferase (ALT/SGPT) 88 U/L (16-63) Alkaline Phosphatase 60 U/L (46-116) Creatine Kinase 127 U/L (39-308) Troponin I Quantitative < 0.017 ng/mL (0.000-0.055) UD-Rns-A-Type Natriuretic Peptide 212 pg/mL (0-124) Total Protein 7.9 g/dL (6.4-8.2) Albumin 3.4 g/dL (3.4-5.0) Albumin/Globulin Ratio 0.8 (1.0-1.7) Procalcitonin 37.29 ng/mL (0.00-0.10) Influenza Type A Antigen Negative (NEGATIVE) Influenza Type B Antigen Negative (NEGATIVE) Urine Collection Type U cath Urine Color Dk yellow Urine Clarity Cloudy Urine pH 5.5 Urine Specific [place] 1.025 Urine Protein 100 mg/dL (NEG-TRACE) Urine Glucose (UA) Negative mg/dL (NEG) Urine Ketones (Stick) Trace mg/dL (NEG) Urine Blood Negative (NEG) Urine Nitrite Negative (NEG) Urine Bilirubin Small (NEG) Urine Urobilinogen Dipstick 1.0 mg/dL (0.2 mg/dL) Urine Leukocyte Esterase Negative (NEG) Urine RBC 0 /HPF (0-2) Urine WBC Occ /HPF (0-4) Urine Squamous Epithelial Cells Occ /LPF Urine Bacteria 0 /HPF (0-FEW) Urine Hyaline Casts Few /HPF Urine Mucus Marked /LPF Laboratory Tests Test 05/22/19 12:25 05/22/19 12:40 05/22/19 16:00 White Blood Count 21.8 x10^3/uL (4.0-11.0) Red Blood Count 5.80 x10^6/uL (4.30-5.70) Hemoglobin 16.6 g/dL (13.0-17.5) Hematocrit 49.2 % (39.0-53.0) Mean Corpuscular Volume 85 fL (79-100) Mean Corpuscular Hemoglobin 29 pg (25-35) Mean Corpuscular Hemoglobin Concent 34 g/dL (31-37) Red Cell Distribution Width 14.0 % (11.5-14.5) Platelet Count 192 x10^3/uL (140-400) Neutrophils (%) (Auto) 93 % (31-73) Lymphocytes (%) (Auto) 2 % (24-48) Monocytes (%) (Auto) 5 % (0-9) Eosinophils (%) (Auto) 0 % (0-3) Basophils (%) (Auto) 0 % (0-3) Neutrophils # (Auto) 20.3 x10^3/uL (1.8-7.7) Lymphocytes # (Auto) 0.5 x10^3/uL (1.0-4.8) Monocytes # (Auto) 1.0 x10^3/uL (0.0-1.1) Eosinophils # (Auto) 0.0 x10^3/uL (0.0-0.7) Basophils # (Auto) 0.0 x10^3/uL (0.0-0.2) Segmented Neutrophils % 71 % (35-66) Band Neutrophils % 16 % (0-9) Lymphocytes % 3 % (24-48) Monocytes % 10 % (0-10) Toxic Granulation Slight Platelet Estimate Adequate (ADEQUATE) Prothrombin Time 14.5 SEC (11.7-14.0) Prothromb Time International Ratio 1.2 (0.8-1.1) Sodium Level 137 mmol/L (136-145) Potassium Level 3.8 mmol/L (3.5-5.1) Chloride Level 100 mmol/L (98-107) Carbon Dioxide Level 29 mmol/L (21-32) Anion Gap 8 (6-14) Blood Urea Nitrogen 22 mg/dL (8-26) Creatinine 2.1 mg/dL (0.7-1.3) Estimated GFR (Cockcroft-Gault) 38.1 BUN/Creatinine Ratio 10 (6-20) Glucose Level 98 mg/dL (70-99) Lactic Acid Level 3.7 mmol/L (0.4-2.0) 1.8 mmol/L (0.4-2.0) Calcium Level 9.5 mg/dL (8.5-10.1) Total Bilirubin 1.2 mg/dL (0.2-1.0) Aspartate Amino Transf (AST/SGOT) 35 U/L (15-37) Alanine Aminotransferase (ALT/SGPT) 88 U/L (16-63) Alkaline Phosphatase 60 U/L (46-116) Creatine Kinase 127 U/L (39-308) Troponin I Quantitative < 0.017 ng/mL (0.000-0.055) LT-Xjd-X-Type Natriuretic Peptide 212 pg/mL (0-124) Total Protein 7.9 g/dL (6.4-8.2) Albumin 3.4 g/dL (3.4-5.0) Albumin/Globulin Ratio 0.8 (1.0-1.7) Procalcitonin 37.29 ng/mL (0.00-0.10) Influenza Type A Antigen Negative (NEGATIVE) Influenza Type B Antigen Negative (NEGATIVE) Urine Collection Type U cath Urine Color Dk yellow Urine Clarity Cloudy Urine pH 5.5 Urine Specific [place] 1.025 Urine Protein 100 mg/dL (NEG-TRACE) Urine Glucose (UA) Negative mg/dL (NEG) Urine Ketones (Stick) Trace mg/dL (NEG) Urine Blood Negative (NEG) Urine Nitrite Negative (NEG) Urine Bilirubin Small (NEG) Urine Urobilinogen Dipstick 1.0 mg/dL (0.2 mg/dL) Urine Leukocyte Esterase Negative (NEG) Urine RBC 0 /HPF (0-2) Urine WBC Occ /HPF (0-4) Urine Squamous Epithelial Cells Occ /LPF Urine Bacteria 0 /HPF (0-FEW) Urine Hyaline Casts Few /HPF Urine Mucus Marked /LPF LAST VITALS Vital Signs Date Time Temp Pulse Resp B/P (MAP) Pulse Ox O2 Delivery O2 Flow Rate FiO2 05/22/19 16:18 18 99 Nasal Cannula 2.0 05/22/19 15:22 101.4 115 66/33 (44) 101.4 KRISSY ATWOOD MD May 22, 2019 17:03
[2019-05-22] MEDS: HYDROmorphone 2 MG/ML VIAL IVP PRN ×2 (17:05→22:07)
--- NOTE | 2019-05-22 17:15 | CONS ---
DATE OF CONSULTATION: 05/22/2019 REQUESTING PHYSICIAN: Dr. Waldron. REASON FOR CONSULTATION: Sepsis and cellulitis. HISTORY OF PRESENT ILLNESS: This is a 28-year-old gentleman with morbid obesity, who is actually waiting for to get a gastric bypass. The patient presented as he woke up this morning with chills. The patient went to the bed last night without any symptoms or problems. This morning, he woke up with chills and then noticed right leg pain, hence he came into the Emergency Room. The patient is noted to have significant redness, tenderness and warmth to the right leg almost to the knee. The patient has a fever up to 102.3. White count up to 21,000. The patient with hypotensive, acute renal failure. The patient has been admitted to the ICU for further management. At the time of my visit, the patient is alert, awake. The patient is able to provide information. He has had some nausea, no vomiting. Significant pain in the right ankle. Denies any trauma. Denies any twisting. Denies any puncture wound and he has never had something like this before. PAST MEDICAL HISTORY: Positive for morbid obesity. The patient does have hypertension and he does take some medication to curb the appetite. The patient has had some suturing done on the skin, but no other surgery done. SOCIAL HISTORY: Negative for smoking, occasional alcohol use, no drug use. ALLERGIES: No known drug allergies. CURRENT MEDICATIONS: Reviewed. The patient was written for one dose of vancomycin and Zosyn from the ER. REVIEW OF SYSTEMS: As per HPI, all other systems reviewed are negative. PHYSICAL EXAMINATION: GENERAL: Alert, oriented gentleman, not in distress. VITAL SIGNS: Stable with a T-max 102.3, pulse 135, respirations 20, blood pressure 93/45. The patient did receive 2.5 liters of fluid so far. HEENT: Both pupils are round and reacting. No conjunctival lesion, no lesion in the mouth. NECK: Supple, no JVP, no lymphadenopathy. LUNGS: Clear. HEART: S1, S2 regular. ABDOMEN: Soft, nontender, no organomegaly. EXTREMITIES: The patient does have right lower extremity the foot, ankle and most of the leg up to below knee is bright red, warm and tender, ankle is significantly tender. SKIN: There is no skin breakdown other than he does have tinea infection between the toes and some cracks in the skin from a dry skin on the heel. The patient does have a right inguinal area has tender lymphadenopathy as well as a yeast infection in the skin in to the groin. Rest of the skin examination is unremarkable other than the patient does have vitiligo. NEUROLOGIC: The patient is neurologically alert, awake and appropriate. No focal neurologic deficit. LABORATORY DATA: White count is 21.8, hemoglobin 16.6, platelets are 192,000. BUN and creatinine is 22 and 2.1. Lactic acid 3.7, ALT is 88, AST is 35. Procalcitonin is 37. Influenza screen negative. Chest x-ray is unremarkable. IMPRESSION: 1. Right lower extremity cellulitis. 2. Fever and chills with leukocytosis, the patient has septic shock with hypotension. 3. Acute kidney injury. 4. Fever. 5. Leukocytosis. 6. History of hypertension. 7. Super morbid obesity, going for gastric bypass. RECOMMENDATIONS: Recommend another liter of fluid at least, Erickson catheter to monitor urine output. Supportive care. After one dose of vancomycin, we will discontinue vancomycin, wrote for Zosyn and also wrote for micafungin. Cultures have been taken. We will follow. Supportive care. We will get CK right now it does not appear to have any necrotizing fasciitis. We will closely monitor and continue to follow. Thank you very much, Dr. Waldron for giving me the opportunity to participate in this patient's care. MUKESH GAYLE MD DR: TRA/rogers JOB#: [id number] / [id number]
--- NOTE | 2019-05-22 17:26 | RAD ---
Study: CHEST AP ONLY Indication: Central line placement Comparison: 05/22/2019 at 1256 hours. Findings: Interval placement of a right IJ central venous catheter with the tip terminating in the superior vena cava. The heart is enlarged likely accentuated by projection. The central vascular structures are prominent. Increased lung markings bilaterally. No pneumothorax. Impression: 1. Right IJ with the tip in the superior vena cava. 2. Redemonstrated prominence of the cardiomediastinal silhouette that is likely accentuated by low lung volumes. The central vascular structures are prominent as well. Increased lung markings could represent a degree of pulmonary edema however given patient body habitus, a component of this appearance could also be related to extensive overlying soft tissues. Electronically signed by: JOCELYNE WATERS MD (05/22/2019 5:23 PM) [id number]
[2019-05-22] MEDS: PIPERACILLIN/TAZOBACTAM 3.375 GM in IV NORMAL SALINE 50ML 50 ML IV SCH ×2 (17:55→23:58)
[2019-05-22] MEDS ORDERED: ALBUMIN HUMAN 5% 500 ML IV PRN (18:15)
[2019-05-22] MEDS ORDERED: NOREPINEPHRIN 8MG/250ML PREMIX 250 ML IV PRN (21:00)
--- NOTE | 2019-05-22 21:30 | RAD ---
Bilateral Lower Extremity Venous Doppler Ultrasound History: Swelling Comparison: None Procedure: Color flow, duplex, spectral analysis and 2D images are obtained with and without compression in the area of the common femoral vein, superficial femoral vein - femoral vein junction, main femoral vein (superficial femoral vein) and popliteal vein. Veins of the proximal calf are also imaged. Findings: There is normal duplex flow, color flow and compressibility of all visualized vein segments. No evidence of deep venous thrombus is present. The study is limited by large body habitus. The peroneal veins are not visualized. Impression: No evidence of DVT. Electronically signed by: Maxwell Crum III, MD (05/22/2019 9:27 PM) [id number]
[2019-05-22] MEDS: HEPARIN for SUB-Q USE 5,000 UNIT/ML VIAL. SQ SCH (22:12)
[2019-05-23] VITALS (24 sets, daily range): BP systolic 90–168; BP diastolic 43–86
[2019-05-23] MEDS ORDERED: ACETAMINOPHEN 325 MG TABLET. PO ONE (01:04)
[2019-05-23] MEDS ORDERED: ACETAMINOPHEN 325 MG TABLET. PO PRN ×2 (05:30)
[2019-05-23] MEDS: HEPARIN for SUB-Q USE 5,000 UNIT/ML VIAL. SQ SCH ×3 (06:00→21:47)
[2019-05-23] MEDS: PIPERACILLIN/TAZOBACTAM 3.375 GM in IV NORMAL SALINE 50ML 50 ML IV SCH ×3 (06:15→17:43)
--- NOTE | 2019-05-23 08:05 | RAD ---
Exam performed: Renal sonogram. HISTORY: Acute renal insufficiency. DATE OF SERVICE: 05/22/2019. COMPARISON: None available Discussion: The study is extremely limited due to patient's body habitus and overlying bowel gas. Kidneys are secured due to above-mentioned reasons and are not visualized. The urinary bladder is decompressed secondary to Erickson's catheter. IMPRESSION: See discussion above. Electronically signed by: Lili Oleary MD (05/23/2019 8:02 AM) [facility]
[2019-05-23] MEDS ORDERED: fentaNYL PF VIAL 100 MCG/2 ML VIAL IVP PRN (08:15)
[2019-05-23] MEDS: ONDANSETRON PF 4 MG/2 ML VIAL. IVP PRN (08:33)
[2019-05-23] MEDS: IV NORMAL SALINE 1000ML BAG 1,000 ML IV SCH ×3 (08:34→21:43)
[2019-05-23] MEDS: oxyCODONE/APAP 5/325 1 TAB TABLET PO PRN ×3 (08:34→19:40)
[2019-05-23 08:58] LABS: BASO # 0.1 x10^3/uL (0.0-0.2); BASO % 1 % (0-3); EOS % 0 % (0-3); HEMATOCRIT 41.3 % (39.0-53.0); HEMOGLOBIN 13.8 g/dL (13.0-17.5); LYMPH # 0.7 x10^3/uL (1.0-4.8); LYMPH % 5 % (24-48); MEAN CORPUSCULAR HEMOGLOBIN 29 pg (25-35); MEAN CORPUSCULAR HGB CONC 33 g/dL (31-37); MEAN CORPUSCULAR VOLUME 86 fL (79-100); MONO # 0.5 x10^3/uL (0.0-1.1); MONO % 4 % (0-9); NEUT # 12.3 x10^3/uL (1.8-7.7); NEUT % 90 % (31-73); PLATELET COUNT 140 x10^3/uL (140-400); RED BLOOD COUNT 4.79 x10^6/uL (4.30-5.70); RED CELL DISTRIBUTION WIDTH 14.1 % (11.5-14.5); WHITE BLOOD COUNT 13.6 x10^3/uL (4.0-11.0)
[2019-05-23] MEDS ORDERED: FLU VAX QS 2019-20 (36MOS+)/PF 0.5 ML SYRINGE. VAX IM ONE (09:00)
--- NOTE | 2019-05-23 09:00 | PDOC ---
Infectious Disease Note Subjective Subjective c/o right leg pain Slept some last night Fever Tmax 102.1, less chills BP better, off pressors Denies N/V/D ROS ROS per HPI Vital Sign Vital Signs Vital Signs Date Time Temp Pulse Resp B/P (MAP) Pulse Ox O2 Delivery O2 Flow Rate FiO2 05/23/19 08:34 21 97 Nasal Cannula 05/23/19 07:00 129 135/52 (79) 2.0 05/23/19 04:00 102.1 102.1 Physical Exam PHYSICAL EXAM GENERAL: Propped up in bed, alert, eating HEENT: Both pupils are round and reacting. No conjunctival lesion, no lesion in the mouth. NECK: Supple, no JVP, no lymphadenopathy. LUNGS: Clear. HEART: S1, S2 regular. ABDOMEN: Obese, soft, nontender : Erickson in place EXTREMITIES: Right lower extremity the foot, ankle and most of the leg up to below knee is bright red, warm and tender, ankle is significantly tender. SKIN: Vitiligo. Tinea between the toes and some cracks in the skin from a dry skin on the heel. Right inguinal tender lymphadenopathy as well as a yeast infection in the skin in to the groin. NEUROLOGIC: Nonfocal RIJ clean Labs Lab Laboratory Tests Test 05/22/19 12:25 05/22/19 12:40 05/22/19 16:00 White Blood Count 21.8 x10^3/uL (4.0-11.0) Red Blood Count 5.80 x10^6/uL (4.30-5.70) Hemoglobin 16.6 g/dL (13.0-17.5) Hematocrit 49.2 % (39.0-53.0) Mean Corpuscular Volume 85 fL (79-100) Mean Corpuscular Hemoglobin 29 pg (25-35) Mean Corpuscular Hemoglobin Concent 34 g/dL (31-37) Red Cell Distribution Width 14.0 % (11.5-14.5) Platelet Count 192 x10^3/uL (140-400) Neutrophils (%) (Auto) 93 % (31-73) Lymphocytes (%) (Auto) 2 % (24-48) Monocytes (%) (Auto) 5 % (0-9) Eosinophils (%) (Auto) 0 % (0-3) Basophils (%) (Auto) 0 % (0-3) Neutrophils # (Auto) 20.3 x10^3/uL (1.8-7.7) Lymphocytes # (Auto) 0.5 x10^3/uL (1.0-4.8) Monocytes # (Auto) 1.0 x10^3/uL (0.0-1.1) Eosinophils # (Auto) 0.0 x10^3/uL (0.0-0.7) Basophils # (Auto) 0.0 x10^3/uL (0.0-0.2) Segmented Neutrophils % 71 % (35-66) Band Neutrophils % 16 % (0-9) Lymphocytes % 3 % (24-48) Monocytes % 10 % (0-10) Toxic Granulation Slight Platelet Estimate Adequate (ADEQUATE) Prothrombin Time 14.5 SEC (11.7-14.0) Prothromb Time International Ratio 1.2 (0.8-1.1) Sodium Level 137 mmol/L (136-145) Potassium Level 3.8 mmol/L (3.5-5.1) Chloride Level 100 mmol/L (98-107) Carbon Dioxide Level 29 mmol/L (21-32) Anion Gap 8 (6-14) Blood Urea Nitrogen 22 mg/dL (8-26) Creatinine 2.1 mg/dL (0.7-1.3) Estimated GFR (Cockcroft-Gault) 38.1 BUN/Creatinine Ratio 10 (6-20) Glucose Level 98 mg/dL (70-99) Lactic Acid Level 3.7 mmol/L (0.4-2.0) 1.8 mmol/L (0.4-2.0) Calcium Level 9.5 mg/dL (8.5-10.1) Total Bilirubin 1.2 mg/dL (0.2-1.0) Aspartate Amino Transf (AST/SGOT) 35 U/L (15-37) Alanine Aminotransferase (ALT/SGPT) 88 U/L (16-63) Alkaline Phosphatase 60 U/L (46-116) Creatine Kinase 127 U/L (39-308) Troponin I Quantitative < 0.017 ng/mL (0.000-0.055) XO-Vuj-Z-Type Natriuretic Peptide 212 pg/mL (0-124) Total Protein 7.9 g/dL (6.4-8.2) Albumin 3.4 g/dL (3.4-5.0) Albumin/Globulin Ratio 0.8 (1.0-1.7) Procalcitonin 37.29 ng/mL (0.00-0.10) Influenza Type A Antigen Negative (NEGATIVE) Influenza Type B Antigen Negative (NEGATIVE) Urine Collection Type U cath Urine Color Dk yellow Urine Clarity Cloudy Urine pH 5.5 Urine Specific [place] 1.025 Urine Protein 100 mg/dL (NEG-TRACE) Urine Glucose (UA) Negative mg/dL (NEG) Urine Ketones (Stick) Trace mg/dL (NEG) Urine Blood Negative (NEG) Urine Nitrite Negative (NEG) Urine Bilirubin Small (NEG) Urine Urobilinogen Dipstick 1.0 mg/dL (0.2 mg/dL) Urine Leukocyte Esterase Negative (NEG) Urine RBC 0 /HPF (0-2) Urine WBC Occ /HPF (0-4) Urine Squamous Epithelial Cells Occ /LPF Urine Bacteria 0 /HPF (0-FEW) Urine Hyaline Casts Few /HPF Urine Mucus Marked /LPF Objective Assessment Right lower extremity cellulitis. Septic shock with lactic acidosis, improving, now off pressors Leukocytosis Acute kidney injury. Fever. History of hypertension. Super morbid obesity, going for gastric bypass. Plan Plan of Care Continue Zosyn and micafungin One time dose vancomycin given on May 22 Repeat CBC and BMP this morning F/u cultures D/w nursing Critically ill Patient seen and examined. WBC improving. CK normal Lactic acid is normal, Labs, micro, and chart reviewed. 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
[2019-05-23 09:12] LABS: CALCIUM 7.8 mg/dL (8.5-10.1); CREATININE 1.2 mg/dL (0.7-1.3); GFR 72.6; POTASSIUM 3.7 mmol/L (3.5-5.1)
--- NOTE | 2019-05-23 09:25 | PDOC ---
PROGRESS NOTES Chief Complaint Chief Complaint Bilateral LE cellulitis with hypotension - skin intact Septic shock MOribid obesity BMI 33.5 HTN on home emds NOW HYPOTENSIVE SInus tachycardia sec to sepsis History of Present Illness History of Present Illness LEvophed overnight, now off pressor and systolic 90s HE claims his usual BP is 120s EHa dmits to being thirsty all the time and no PO inatke since friday Was febrile too friday Was well friday ID on board,started soem broad spectrum Pappas in bec no UO at ER, now picking up Tells me he takes 2 meds, BP med and appetite suppressant PLAn: Keep ICU LEvophed prn Ok to continue med for appetite suppressant KEEP NS at 150cc hr KEep pappas for now ok to eat dw [facility] rosa maria Vitals Vitals Vital Signs Date Time Temp Pulse Resp B/P (MAP) Pulse Ox O2 Delivery O2 Flow Rate FiO2 05/23/19 09:00 112 22 95/50 (65) 97 Nasal Cannula 2.0 05/23/19 08:00 99.8 99.8 Physical Exam Physical Exam GENERAL: Propped up in bed, alert, eating HEENT: Both pupils are round and reacting. No conjunctival lesion, no lesion in the mouth. NECK: Supple, no JVP, no lymphadenopathy. LUNGS: Clear. HEART: S1, S2 regular. ABDOMEN: Obese, soft, nontender : Pappas in place EXTREMITIES: Right lower extremity the foot, ankle and most of the leg up to below knee is bright red, warm and tender, ankle is significantly tender. SKIN: Vitiligo. Tinea between the toes and some cracks in the skin from a dry skin on the heel. Right inguinal tender lymphadenopathy as well as a yeast infection in the skin in to the groin. NEUROLOGIC: Nonfocal RIJ clean General: Alert, Oriented X3, Cooperative, No acute distress Heart: Normal S1, Normal S2, Other (sinus tachy) Lungs: Clear Abdomen: Normal bowel sounds, Soft, No hepatosplenomegaly, No masses, Other (diffuse mild tenderness) Extremities: No clubbing, No cyanosis, Other (RLE tender, swollen 3+) Skin: No rashes, Other (RLE rash as below) Labs LABS Laboratory Tests Test 05/22/19 12:25 05/22/19 12:40 05/22/19 16:00 05/23/19 08:45 White Blood Count 21.8 x10^3/uL (4.0-11.0) 13.6 x10^3/uL (4.0-11.0) Red Blood Count 5.80 x10^6/uL (4.30-5.70) 4.79 x10^6/uL (4.30-5.70) Hemoglobin 16.6 g/dL (13.0-17.5) 13.8 g/dL (13.0-17.5) Hematocrit 49.2 % (39.0-53.0) 41.3 % (39.0-53.0) Mean Corpuscular Volume 85 fL (79-100) 86 fL (79-100) Mean Corpuscular Hemoglobin 29 pg (25-35) 29 pg (25-35) Mean Corpuscular Hemoglobin Concent 34 g/dL (31-37) 33 g/dL (31-37) Red Cell Distribution Width 14.0 % (11.5-14.5) 14.1 % (11.5-14.5) Platelet Count 192 x10^3/uL (140-400) 140 x10^3/uL (140-400) Neutrophils (%) (Auto) 93 % (31-73) 90 % (31-73) Lymphocytes (%) (Auto) 2 % (24-48) 5 % (24-48) Monocytes (%) (Auto) 5 % (0-9) 4 % (0-9) Eosinophils (%) (Auto) 0 % (0-3) 0 % (0-3) Basophils (%) (Auto) 0 % (0-3) 1 % (0-3) Neutrophils # (Auto) 20.3 x10^3/uL (1.8-7.7) 12.3 x10^3/uL (1.8-7.7) Lymphocytes # (Auto) 0.5 x10^3/uL (1.0-4.8) 0.7 x10^3/uL (1.0-4.8) Monocytes # (Auto) 1.0 x10^3/uL (0.0-1.1) 0.5 x10^3/uL (0.0-1.1) Eosinophils # (Auto) 0.0 x10^3/uL (0.0-0.7) 0.0 x10^3/uL (0.0-0.7) Basophils # (Auto) 0.0 x10^3/uL (0.0-0.2) 0.1 x10^3/uL (0.0-0.2) Segmented Neutrophils % 71 % (35-66) Band Neutrophils % 16 % (0-9) Lymphocytes % 3 % (24-48) Monocytes % 10 % (0-10) Toxic Granulation Slight Platelet Estimate Adequate (ADEQUATE) Prothrombin Time 14.5 SEC (11.7-14.0) Prothromb Time International Ratio 1.2 (0.8-1.1) Sodium Level 137 mmol/L (136-145) Potassium Level 3.8 mmol/L (3.5-5.1) Chloride Level 100 mmol/L (98-107) Carbon Dioxide Level 29 mmol/L (21-32) Anion Gap 8 (6-14) Blood Urea Nitrogen 22 mg/dL (8-26) Creatinine 2.1 mg/dL (0.7-1.3) Estimated GFR (Cockcroft-Gault) 38.1 BUN/Creatinine Ratio 10 (6-20) Glucose Level 98 mg/dL (70-99) Lactic Acid Level 3.7 mmol/L (0.4-2.0) 1.8 mmol/L (0.4-2.0) Calcium Level 9.5 mg/dL (8.5-10.1) Total Bilirubin 1.2 mg/dL (0.2-1.0) Aspartate Amino Transf (AST/SGOT) 35 U/L (15-37) Alanine Aminotransferase (ALT/SGPT) 88 U/L (16-63) Alkaline Phosphatase 60 U/L (46-116) Creatine Kinase 127 U/L (39-308) Troponin I Quantitative < 0.017 ng/mL (0.000-0.055) ZR-Cfs-Y-Type Natriuretic Peptide 212 pg/mL (0-124) Total Protein 7.9 g/dL (6.4-8.2) Albumin 3.4 g/dL (3.4-5.0) Albumin/Globulin Ratio 0.8 (1.0-1.7) Procalcitonin 37.29 ng/mL (0.00-0.10) Influenza Type A Antigen Negative (NEGATIVE) Influenza Type B Antigen Negative (NEGATIVE) Urine Collection Type U cath Urine Color Dk yellow Urine Clarity Cloudy Urine pH 5.5 Urine Specific [place] 1.025 Urine Protein 100 mg/dL (NEG-TRACE) Urine Glucose (UA) Negative mg/dL (NEG) Urine Ketones (Stick) Trace mg/dL (NEG) Urine Blood Negative (NEG) Urine Nitrite Negative (NEG) Urine Bilirubin Small (NEG) Urine Urobilinogen Dipstick 1.0 mg/dL (0.2 mg/dL) Urine Leukocyte Esterase Negative (NEG) Urine RBC 0 /HPF (0-2) Urine WBC Occ /HPF (0-4) Urine Squamous Epithelial Cells Occ /LPF Urine Bacteria 0 /HPF (0-FEW) Urine Hyaline Casts Few /HPF Urine Mucus Marked /LPF Review of Systems Review of Systems thirsty, weak, legs hurt, no fevers now Assessment and Plan Assessmemt and Plan Problems Medical Problems: (1) Cellulitis Status: Acute (2) Sepsis Status: Acute Comment Review of Relevant I have reviewed the following items miracle (where applicable) has been applied. Labs Laboratory Tests Test 05/22/19 12:25 05/22/19 12:40 05/22/19 16:00 05/23/19 08:45 White Blood Count 21.8 x10^3/uL (4.0-11.0) 13.6 x10^3/uL (4.0-11.0) Red Blood Count 5.80 x10^6/uL (4.30-5.70) 4.79 x10^6/uL (4.30-5.70) Hemoglobin 16.6 g/dL (13.0-17.5) 13.8 g/dL (13.0-17.5) Hematocrit 49.2 % (39.0-53.0) 41.3 % (39.0-53.0) Mean Corpuscular Volume 85 fL (79-100) 86 fL (79-100) Mean Corpuscular Hemoglobin 29 pg (25-35) 29 pg (25-35) Mean Corpuscular Hemoglobin Concent 34 g/dL (31-37) 33 g/dL (31-37) Red Cell Distribution Width 14.0 % (11.5-14.5) 14.1 % (11.5-14.5) Platelet Count 192 x10^3/uL (140-400) 140 x10^3/uL (140-400) Neutrophils (%) (Auto) 93 % (31-73) 90 % (31-73) Lymphocytes (%) (Auto) 2 % (24-48) 5 % (24-48) Monocytes (%) (Auto) 5 % (0-9) 4 % (0-9) Eosinophils (%) (Auto) 0 % (0-3) 0 % (0-3) Basophils (%) (Auto) 0 % (0-3) 1 % (0-3) Neutrophils # (Auto) 20.3 x10^3/uL (1.8-7.7) 12.3 x10^3/uL (1.8-7.7) Lymphocytes # (Auto) 0.5 x10^3/uL (1.0-4.8) 0.7 x10^3/uL (1.0-4.8) Monocytes # (Auto) 1.0 x10^3/uL (0.0-1.1) 0.5 x10^3/uL (0.0-1.1) Eosinophils # (Auto) 0.0 x10^3/uL (0.0-0.7) 0.0 x10^3/uL (0.0-0.7) Basophils # (Auto) 0.0 x10^3/uL (0.0-0.2) 0.1 x10^3/uL (0.0-0.2) Segmented Neutrophils % 71 % (35-66) Band Neutrophils % 16 % (0-9) Lymphocytes % 3 % (24-48) Monocytes % 10 % (0-10) Toxic Granulation Slight Platelet Estimate Adequate (ADEQUATE) Prothrombin Time 14.5 SEC (11.7-14.0) Prothromb Time International Ratio 1.2 (0.8-1.1) Sodium Level 137 mmol/L (136-145) Potassium Level 3.8 mmol/L (3.5-5.1) Chloride Level 100 mmol/L (98-107) Carbon Dioxide Level 29 mmol/L (21-32) Anion Gap 8 (6-14) Blood Urea Nitrogen 22 mg/dL (8-26) Creatinine 2.1 mg/dL (0.7-1.3) Estimated GFR (Cockcroft-Gault) 38.1 BUN/Creatinine Ratio 10 (6-20) Glucose Level 98 mg/dL (70-99) Lactic Acid Level 3.7 mmol/L (0.4-2.0) 1.8 mmol/L (0.4-2.0) Calcium Level 9.5 mg/dL (8.5-10.1) Total Bilirubin 1.2 mg/dL (0.2-1.0) Aspartate Amino Transf (AST/SGOT) 35 U/L (15-37) Alanine Aminotransferase (ALT/SGPT) 88 U/L (16-63) Alkaline Phosphatase 60 U/L (46-116) Creatine Kinase 127 U/L (39-308) Troponin I Quantitative < 0.017 ng/mL (0.000-0.055) MW-Mie-Y-Type Natriuretic Peptide 212 pg/mL (0-124) Total Protein 7.9 g/dL (6.4-8.2) Albumin 3.4 g/dL (3.4-5.0) Albumin/Globulin Ratio 0.8 (1.0-1.7) Procalcitonin 37.29 ng/mL (0.00-0.10) Influenza Type A Antigen Negative (NEGATIVE) Influenza Type B Antigen Negative (NEGATIVE) Urine Collection Type U cath Urine Color Dk yellow Urine Clarity Cloudy Urine pH 5.5 Urine Specific [place] 1.025 Urine Protein 100 mg/dL (NEG-TRACE) Urine Glucose (UA) Negative mg/dL (NEG) Urine Ketones (Stick) Trace mg/dL (NEG) Urine Blood Negative (NEG) Urine Nitrite Negative (NEG) Urine Bilirubin Small (NEG) Urine Urobilinogen Dipstick 1.0 mg/dL (0.2 mg/dL) Urine Leukocyte Esterase Negative (NEG) Urine RBC 0 /HPF (0-2) Urine WBC Occ /HPF (0-4) Urine Squamous Epithelial Cells Occ /LPF Urine Bacteria 0 /HPF (0-FEW) Urine Hyaline Casts Few /HPF Urine Mucus Marked /LPF Laboratory Tests Test 05/22/19 12:25 05/22/19 12:40 05/22/19 16:00 05/23/19 08:45 White Blood Count 21.8 x10^3/uL (4.0-11.0) 13.6 x10^3/uL (4.0-11.0) Red Blood Count 5.80 x10^6/uL (4.30-5.70) 4.79 x10^6/uL (4.30-5.70) Hemoglobin 16.6 g/dL (13.0-17.5) 13.8 g/dL (13.0-17.5) Hematocrit 49.2 % (39.0-53.0) 41.3 % (39.0-53.0) Mean Corpuscular Volume 85 fL (79-100) 86 fL (79-100) Mean Corpuscular Hemoglobin 29 pg (25-35) 29 pg (25-35) Mean Corpuscular Hemoglobin Concent 34 g/dL (31-37) 33 g/dL (31-37) Red Cell Distribution Width 14.0 % (11.5-14.5) 14.1 % (11.5-14.5) Platelet Count 192 x10^3/uL (140-400) 140 x10^3/uL (140-400) Neutrophils (%) (Auto) 93 % (31-73) 90 % (31-73) Lymphocytes (%) (Auto) 2 % (24-48) 5 % (24-48) Monocytes (%) (Auto) 5 % (0-9) 4 % (0-9) Eosinophils (%) (Auto) 0 % (0-3) 0 % (0-3) Basophils (%) (Auto) 0 % (0-3) 1 % (0-3) Neutrophils # (Auto) 20.3 x10^3/uL (1.8-7.7) 12.3 x10^3/uL (1.8-7.7) Lymphocytes # (Auto) 0.5 x10^3/uL (1.0-4.8) 0.7 x10^3/uL (1.0-4.8) Monocytes # (Auto) 1.0 x10^3/uL (0.0-1.1) 0.5 x10^3/uL (0.0-1.1) Eosinophils # (Auto) 0.0 x10^3/uL (0.0-0.7) 0.0 x10^3/uL (0.0-0.7) Basophils # (Auto) 0.0 x10^3/uL (0.0-0.2) 0.1 x10^3/uL (0.0-0.2) Segmented Neutrophils % 71 % (35-66) Band Neutrophils % 16 % (0-9) Lymphocytes % 3 % (24-48) Monocytes % 10 % (0-10) Toxic Granulation Slight Platelet Estimate Adequate (ADEQUATE) Prothrombin Time 14.5 SEC (11.7-14.0) Prothromb Time International Ratio 1.2 (0.8-1.1) Sodium Level 137 mmol/L (136-145) Potassium Level 3.8 mmol/L (3.5-5.1) Chloride Level 100 mmol/L (98-107) Carbon Dioxide Level 29 mmol/L (21-32) Anion Gap 8 (6-14) Blood Urea Nitrogen 22 mg/dL (8-26) Creatinine 2.1 mg/dL (0.7-1.3) Estimated GFR (Cockcroft-Gault) 38.1 BUN/Creatinine Ratio 10 (6-20) Glucose Level 98 mg/dL (70-99) Lactic Acid Level 3.7 mmol/L (0.4-2.0) 1.8 mmol/L (0.4-2.0) Calcium Level 9.5 mg/dL (8.5-10.1) Total Bilirubin 1.2 mg/dL (0.2-1.0) Aspartate Amino Transf (AST/SGOT) 35 U/L (15-37) Alanine Aminotransferase (ALT/SGPT) 88 U/L (16-63) Alkaline Phosphatase 60 U/L (46-116) Creatine Kinase 127 U/L (39-308) Troponin I Quantitative < 0.017 ng/mL (0.000-0.055) UM-Fxr-V-Type Natriuretic Peptide 212 pg/mL (0-124) Total Protein 7.9 g/dL (6.4-8.2) Albumin 3.4 g/dL (3.4-5.0) Albumin/Globulin Ratio 0.8 (1.0-1.7) Procalcitonin 37.29 ng/mL (0.00-0.10) Influenza Type A Antigen Negative (NEGATIVE) Influenza Type B Antigen Negative (NEGATIVE) Urine Collection Type U cath Urine Color Dk yellow Urine Clarity Cloudy Urine pH 5.5 Urine Specific [place] 1.025 Urine Protein 100 mg/dL (NEG-TRACE) Urine Glucose (UA) Negative mg/dL (NEG) Urine Ketones (Stick) Trace mg/dL (NEG) Urine Blood Negative (NEG) Urine Nitrite Negative (NEG) Urine Bilirubin Small (NEG) Urine Urobilinogen Dipstick 1.0 mg/dL (0.2 mg/dL) Urine Leukocyte Esterase Negative (NEG) Urine RBC 0 /HPF (0-2) Urine WBC Occ /HPF (0-4) Urine Squamous Epithelial Cells Occ /LPF Urine Bacteria 0 /HPF (0-FEW) Urine Hyaline Casts Few /HPF Urine Mucus Marked /LPF Medications Current Medications Sodium Chloride 1,000 ml @ 2,250 mls/hr Q27M IV Last administered on 05/22/19at 16:17; Start 05/22/19 at 12:33; Stop 05/22/19 at 13:33; Status DC Vancomycin HCl (Vanco Per Pharmacy) 1 each PRN DAILY PRN MC SEE COMMENTS; Start 05/22/19 at 12:45; Stop 05/22/19 at 15:19; Status DC Vancomycin HCl 2 gm/Sodium Chloride 500 ml @ 250 mls/hr 1X ONCE IV Last administered on 05/22/19at 13:34; Start 05/22/19 at 13:00; Stop 05/22/19 at 14:59; Status DC Fentanyl Citrate (Fentanyl 2ml Vial) 50 mcg 1X ONCE IVP Last administered on 05/22/19at 13:10; Start 05/22/19 at 13:00; Stop 05/22/19 at 13:01; Status DC Ondansetron HCl (Zofran) 4 mg 1X ONCE IV Last administered on 05/22/19at 13:09; Start 05/22/19 at 13:00; Stop 05/22/19 at 13:01; Status DC Acetaminophen (Tylenol) 1,000 mg 1X ONCE PO Last administered on 05/22/19at 13:08; Start 05/22/19 at 13:00; Stop 05/22/19 at 13:01; Status DC Piperacillin Sod/ Tazobactam Sod 3.375 gm/Sodium Chloride 50 ml @ 100 mls/hr 1X ONCE IV Last administered on 05/22/19at 14:15; Start 05/22/19 at 13:45; Stop 05/22/19 at 14:14; Status DC Ondansetron HCl (Zofran) 4 mg PRN Q8HRS PRN IV NAUSEA/VOMITING Last administered on 05/22/19at 17:10; Start 05/22/19 at 13:45; Stop 05/23/19 at 08:14; Status DC Fentanyl Citrate (Fentanyl 2ml Vial) 50 mcg PRN Q1HR PRN IV PAIN Last administered on 05/22/19at 14:41; Start 05/22/19 at 13:45; Stop 05/23/19 at 08:14; Status DC Norepinephrine Bitartrate 250 ml @ 42.439 mls/ hr 1X ONCE IV Last administered on 05/22/19at 16:11; Start 05/22/19 at 14:15; Stop 05/22/19 at 20:08; Status DC Piperacillin Sod/ Tazobactam Sod 3.375 gm/Sodium Chloride 50 ml @ 100 mls/hr Q6HRS IV Last administered on 05/23/19at 06:15; Start 05/22/19 at 18:00 Micafungin Sodium 100 mg/Dextrose 100 ml @ 100 mls/hr Q24H IV Last administered on 05/22/19at 16:07; Start 05/22/19 at 16:00 Influenza Virus Vaccine Quadrival (Afluria Quad 2019-20 (3yr Up) Syringe) 0.5 ml ONCE ONCE VAX IM ; Start 05/23/19 at 09:00; Stop 05/23/19 at 09:01; Status DC Albumin Human 500 ml @ 125 mls/hr 1X ONCE IV Last administered on 05/22/19at 16:15; Start 05/22/19 at 16:00; Stop 05/22/19 at 19:59; Status DC Tramadol HCl (Ultram) 50 mg PRN Q6HRS PRN PO MODERATE PAIN; Start 05/22/19 at 16:00 Hydromorphone HCl (Dilaudid) 0.4 mg PRN Q4HRS PRN IVP SEVERE PAIN Last administered on 05/22/19at 22:07; Start 05/22/19 at 16:00 Heparin Sodium (Porcine) (Heparin Sodium) 5,000 unit Q8HRS SQ Last administered on 05/22/19at 22:12; Start 05/22/19 at 22:00 Lidocaine HCl (Xylocaine-Mpf 1% 2ml Vial) 2 ml STK-MED ONCE .ROUTE ; Start 05/22/19 at 16:47; Stop 05/22/19 at 16:47; Status DC Lidocaine HCl (Lidocaine HCl 2% Abboject) 100 mg STK-MED ONCE .ROUTE ; Start 05/22/19 at 16:47; Stop 05/22/19 at 16:47; Status DC Lidocaine HCl (Xylocaine 1% Pf 30ml Vial) 30 ml STK-MED ONCE .ROUTE ; Start 05/22/19 at 16:48; Stop 05/22/19 at 16:48; Status DC Sodium Chloride 1,000 ml @ 150 mls/hr Q6H40M IV Last administered on 05/23/19at 09:04; Start 05/22/19 at 18:15 Albumin Human 500 ml @ 125 mls/hr PRN Q24HRS PRN IV HYPOTENSION; Start 05/22/19 at 18:15 Norepinephrine Bitartrate 250 ml @ 42.524 mls/ hr CONT PRN IV SEE I/O RECORD Last administered on 05/22/19at 23:58; Start 05/22/19 at 21:00 Acetaminophen (Tylenol) 325 mg STK-MED ONCE PO ; Start 05/23/19 at 01:04; Stop 05/23/19 at 01:04; Status DC Acetaminophen (Tylenol) 650 mg PRN Q6HRS PRN PO FEVER; Start 05/23/19 at 05:30 Acetaminophen (Tylenol) 325 mg PRN Q6HRS PRN PO MILD PAIN / TEMP; Start 05/23/19 at 05:30 Lactobacillus Rhamnosus (Culturelle) 1 cap BID PO ; Start 05/23/19 at 09:00 Fentanyl Citrate (Fentanyl 2ml Vial) 50 mcg PRN Q2HR PRN IVP MODERATE PAIN; Start 05/23/19 at 08:15 Ondansetron HCl (Zofran) 4 mg PRN Q6HRS PRN IVP NAUSEA/VOMITING Last administered on 05/23/19at 08:33; Start 05/23/19 at 08:15 Oxycodone/ Acetaminophen (Percocet 5/325) 1 tab PRN Q4HRS PRN PO SEVERE PAIN Last administered on 05/23/19at 08:34; Start 05/23/19 at 08:15 Vitals/I & O Vital Sign - Last 24 Hours 05/22/19 05/22/19 05/22/19 05/22/19 12:08 12:36 12:50 13:00 Temp 102.3 102.3 Pulse 135 128 126 125 Resp 24 B/P (MAP) 93/45 (61) 98/53 (68) 97/53 (68) 92/54 (67) Pulse Ox 95 94 96 95 O2 Delivery Room Air Room Air Room Air Room Air 05/22/19 05/22/19 05/22/19 05/22/19 13:10 13:14 13:15 13:22 Temp 99.8 99.8 Pulse 122 Resp B/P (MAP) 94/55 (68) Pulse Ox 97 94 86 O2 Delivery Room Air Room Air Room Air 05/22/19 05/22/19 05/22/19 05/22/19 13:29 13:40 13:51 14:06 Temp 101.6 101.6 Pulse 122 121 119 118 Resp 24 22 B/P (MAP) 81/51 (61) 91/45 (60) 89/48 (62) 94/47 (63) Pulse Ox 97 99 99 98 O2 Delivery Nasal Cannula Nasal Cannula Nasal Cannula Nasal Cannula O2 Flow Rate 2.0 2.0 2.0 2.0 05/22/19 05/22/19 05/22/19 05/22/19 14:20 14:35 14:45 15:11 Pulse 118 116 115 Resp 24 20 B/P (MAP) 97/48 (64) 101/53 (69) 102/54 (70) Pulse Ox 99 99 99 99 O2 Delivery Nasal Cannula Nasal Cannula Nasal Cannula Nasal Cannula O2 Flow Rate 2.0 2.0 2.0 2.0 05/22/19 05/22/19 05/22/19 05/22/19 15:22 16:00 16:18 17:00 Temp 101.4 101.4 Pulse 115 114 Resp 18 18 B/P (MAP) 66/33 (44) 90/44 (59) Pulse Ox 99 99 99 O2 Delivery Nasal Cannula Nasal Cannula Nasal Cannula Nasal Cannula O2 Flow Rate 2.0 2.0 2.0 2.0 05/22/19 05/22/19 05/22/19 05/22/19 17:05 17:35 18:00 19:00 Pulse 106 110 Resp 20 18 18 20 B/P (MAP) 102/46 (64) 138/69 (92) Pulse Ox 96 98 99 99 O2 Delivery Nasal Cannula Nasal Cannula Nasal Cannula Nasal Cannula O2 Flow Rate 2.0 2.0 2.0 05/22/19 05/22/19 05/22/19 05/22/19 20:00 20:00 21:00 22:00 Temp 99.5 99.5 Pulse 106 99 106 Resp 18 19 16 B/P (MAP) 141/70 (93) 126/66 (86) 135/76 (95) Pulse Ox 98 98 97 O2 Delivery Nasal Cannula Nasal Cannula Nasal Cannula Nasal Cannula O2 Flow Rate 2.0 2.0 2.0 2.0 05/22/19 05/22/19 05/22/19 05/23/19 22:07 22:42 23:00 00:00 Pulse 105 Resp 20 20 18 B/P (MAP) 129/58 (81) Pulse Ox 100 98 100 O2 Delivery Nasal Cannula Nasal Cannula Nasal Cannula Nasal Cannula O2 Flow Rate 2.0 2.0 2.0 2.0 05/23/19 05/23/19 05/23/19 05/23/19 00:00 01:00 02:00 03:00 Temp 99.0 99.0 Pulse 12 112 131 130 Resp 25 22 29 B/P (MAP) 132/49 (76) 124/50 (74) 168/80 (109) 110/63 (79) Pulse Ox 97 99 96 91 O2 Delivery Nasal Cannula Nasal Cannula Nasal Cannula Nasal Cannula O2 Flow Rate 2.0 2.0 2.0 2.0 05/23/19 05/23/19 05/23/19 05/23/19 04:00 04:00 05:00 06:00 Temp 102.1 102.1 Pulse 123 133 126 Resp 22 24 22 B/P (MAP) 129/52 (77) 109/49 (69) 109/52 (71) Pulse Ox 92 96 95 O2 Delivery Nasal Cannula Nasal Cannula Nasal Cannula Nasal Cannula O2 Flow Rate 2.0 2.0 2.0 2.0 05/23/19 05/23/19 05/23/19 05/23/19 07:00 08:00 08:00 08:34 Temp 99.8 99.8 Pulse 129 116 Resp 20 20 21 B/P (MAP) 135/52 (79) 101/52 (68) Pulse Ox 95 97 97 O2 Delivery Nasal Cannula Nasal Cannula Nasal Cannula Nasal Cannula O2 Flow Rate 2.0 2.0 2.0 05/23/19 09:00 Pulse 112 Resp 22 B/P (MAP) 95/50 (65) Pulse Ox 97 O2 Delivery Nasal Cannula O2 Flow Rate 2.0 Intake and Output 05/22/19 05/22/19 05/23/19 15:00 23:00 07:00 Intake Total 2300 ml 3650 ml 3279.5 ml Output Total 1060 ml 2225 ml Balance 2300 ml 2590 ml 1054.5 ml DEVEN TRENT MD May 23, 2019 09:25
[2019-05-23] MEDS: LACTOBACILLUS RHAMNOSUS GG 1 CAPSULE. PO SCH ×2 (09:36→21:41)
[2019-05-23] MEDS: LINEZOLID 600 MG TABLET PO SCH ×2 (12:01→21:42)
[2019-05-23] MEDS: MICAFUNGIN 100 MG in IV DEXTROSE 5% 100ML 100 ML IV SCH (16:32)
[2019-05-24] VITALS (16 sets, daily range): BP systolic 98–169; BP diastolic 54–104
[2019-05-24] MEDS: PIPERACILLIN/TAZOBACTAM 3.375 GM in IV NORMAL SALINE 50ML 50 ML IV SCH ×4 (00:03→17:33)
[2019-05-24] MEDS: IV NORMAL SALINE 1000ML BAG 1,000 ML IV SCH ×2 (06:21→10:15)
[2019-05-24] MEDS: HEPARIN for SUB-Q USE 5,000 UNIT/ML VIAL. SQ SCH ×2 (06:28→13:04)
[2019-05-24 06:41] LABS: BASO % 0 % (0-3); EOS % 0 % (0-3); HEMATOCRIT 41.3 % (39.0-53.0); HEMOGLOBIN 13.7 g/dL (13.0-17.5); LYMPH # 0.7 x10^3/uL (1.0-4.8); LYMPH % 6 % (24-48); MEAN CORPUSCULAR HEMOGLOBIN 29 pg (25-35); MEAN CORPUSCULAR HGB CONC 33 g/dL (31-37); MEAN CORPUSCULAR VOLUME 87 fL (79-100); MONO # 0.6 x10^3/uL (0.0-1.1); MONO % 5 % (0-9); NEUT # 9.9 x10^3/uL (1.8-7.7); NEUT % 88 % (31-73); PLATELET COUNT 126 x10^3/uL (140-400); RED BLOOD COUNT 4.75 x10^6/uL (4.30-5.70); WHITE BLOOD COUNT 11.2 x10^3/uL (4.0-11.0)
[2019-05-24 06:44] LABS: CALCIUM 8.1 mg/dL (8.5-10.1); CREATININE 0.9 mg/dL (0.7-1.3); GFR 101.2
--- NOTE | 2019-05-24 06:59 | EKG ---
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
--- NOTE | 2019-05-24 07:26 | PDOC ---
Infectious Disease Note Subjective Subjective c/o right leg pain some better Slept some last night Fever Tmax 102.1, less chills - improving BP better, off pressors Occ N/ no vomiting. + Appetite ROS ROS o/w neg Vital Sign Vital Signs Vital Signs Date Time Temp Pulse Resp B/P (MAP) Pulse Ox O2 Delivery O2 Flow Rate FiO2 05/24/19 06:00 101 27 134/77 (96) 98 Nasal Cannula 2.0 05/24/19 04:00 99.2 99.2 Physical Exam PHYSICAL EXAM GENERAL: Propped up in bed, alert, looks comfortable HEENT: Both pupils are round and reacting. No conjunctival lesion, no lesion in the mouth. NECK: Supple, no JVP, no lymphadenopathy. LUNGS: Clear. HEART: S1, S2 regular. ABDOMEN: Obese, soft, nontender : Erickson in place EXTREMITIES: Right lower extremity the foot, ankle and most of the leg up to below knee has mild red, trace warmth and tender, ankle is significantly tender. SKIN: Vitiligo. Tinea between the toes and some cracks in the skin from a dry skin on the heel. Right inguinal tender lymphadenopathy as well as a yeast infection in the skin in to the groin. NEUROLOGIC: Nonfocal RIJ clean Labs Lab Laboratory Tests Test 05/23/19 08:45 05/24/19 06:00 White Blood Count 13.6 x10^3/uL (4.0-11.0) Red Blood Count 4.79 x10^6/uL (4.30-5.70) Hemoglobin 13.8 g/dL (13.0-17.5) Hematocrit 41.3 % (39.0-53.0) Mean Corpuscular Volume 86 fL (79-100) Mean Corpuscular Hemoglobin 29 pg (25-35) Mean Corpuscular Hemoglobin Concent 33 g/dL (31-37) Red Cell Distribution Width 14.1 % (11.5-14.5) Platelet Count 140 x10^3/uL (140-400) Neutrophils (%) (Auto) 90 % (31-73) Lymphocytes (%) (Auto) 5 % (24-48) Monocytes (%) (Auto) 4 % (0-9) Eosinophils (%) (Auto) 0 % (0-3) Basophils (%) (Auto) 1 % (0-3) Neutrophils # (Auto) 12.3 x10^3/uL (1.8-7.7) Lymphocytes # (Auto) 0.7 x10^3/uL (1.0-4.8) Monocytes # (Auto) 0.5 x10^3/uL (0.0-1.1) Eosinophils # (Auto) 0.0 x10^3/uL (0.0-0.7) Basophils # (Auto) 0.1 x10^3/uL (0.0-0.2) Sodium Level 139 mmol/L (136-145) 136 mmol/L (136-145) Potassium Level 3.7 mmol/L (3.5-5.1) 4.0 mmol/L (3.5-5.1) Chloride Level 103 mmol/L (98-107) 102 mmol/L (98-107) Carbon Dioxide Level 28 mmol/L (21-32) 26 mmol/L (21-32) Anion Gap 8 (6-14) 8 (6-14) Blood Urea Nitrogen 17 mg/dL (8-26) 11 mg/dL (8-26) Creatinine 1.2 mg/dL (0.7-1.3) 0.9 mg/dL (0.7-1.3) Estimated GFR (Cockcroft-Gault) 72.6 101.2 Glucose Level 92 mg/dL (70-99) 104 mg/dL (70-99) Calcium Level 7.8 mg/dL (8.5-10.1) 8.1 mg/dL (8.5-10.1) Procalcitonin 13.85 ng/mL (0.00-0.10) Objective Assessment Right lower extremity cellulitis. Septic shock with lactic acidosis, improving, now off pressors - better Leukocytosis - better Acute kidney injury - better Fever - better. History of hypertension. Super morbid obesity, going for gastric bypass. Plan Plan of Care Continue Zosyn and micafungin/zyvox Monitor R ankle area One time dose vancomycin given on May 22 F/u cultures D/w nursing Critically ill - better D/w family JENY ESQUIVEL MD May 24, 2019 07:26
[2019-05-24] MEDS: LINEZOLID 600 MG TABLET PO SCH ×2 (08:27→20:51)
[2019-05-24] MEDS: LACTOBACILLUS RHAMNOSUS GG 1 CAPSULE. PO SCH ×2 (08:27→20:51)
[2019-05-24] MEDS: oxyCODONE/APAP 5/325 1 TAB TABLET PO PRN ×2 (11:17→17:33)
--- NOTE | 2019-05-24 11:54 | PDOC2 ---
CONSULT Date of Consult Date of Consult DATE: 05/24/19 TIME: 11:39 Reason for Consult Reason for Consult: ABDIEL Referring Physician Referring Physician: Dr. Waldron Source Source: Chart review, Patient History of Present Illness Reason for Visit: Pt is a 28-year-old male with morbid obesity, awaiting to get a gastric bypass, he presented with chills and right leg pain Room. He was noted to have significant redness, tenderness and warmth to the right leg almost to the knee, fever up to 102.3. and elevated WBC 21,000. He was hypotensive and in acute renal failure. Admitted to the ICU for further management. He has had some nausea, no vomiting, No diarrhea . Significant pain in the right ankle. Denies any trauma. Denies any puncture wound States right leg pain some better,Slept some last night Currently off pressors Past Medical History Cardiovascular: HTN Pulmonary: No pertinent hx GI: No pertinent hx Heme/Onc: No pertinent hx Hepatobiliary: No pertinent hx Psych: No pertinent hx Rheumatologic: No pertinent hx Infectious disease: No pertinent hx ENT: No pertinent hx Renal/: No pertinent hx Endocrine: No pertinent hx Dermatology: No pertinent hx Past Surgical History Past Surgical History: No pertinent history Family History Family History: High Cholestrol, Hypertension Social History No ALCOHOL: none Drugs: None Current Problem List Problem List Problems Medical Problems: (1) Cellulitis Status: Acute (2) Sepsis Status: Acute Current Medications Current Medications Current Medications Sodium Chloride 1,000 ml @ 2,250 mls/hr Q27M IV Last administered on 05/22/19at 16:17; Start 05/22/19 at 12:33; Stop 05/22/19 at 13:33; Status DC Vancomycin HCl (Vanco Per Pharmacy) 1 each PRN DAILY PRN MC SEE COMMENTS; Star t 05/22/19 at 12:45; Stop 05/22/19 at 15:19; Status DC Vancomycin HCl 2 gm/Sodium Chloride 500 ml @ 250 mls/hr 1X ONCE IV Last administered on 05/22/19at 13:34; Start 05/22/19 at 13:00; Stop 05/22/19 at 14:59; Status DC Fentanyl Citrate (Fentanyl 2ml Vial) 50 mcg 1X ONCE IVP Last administered on 05/22/19at 13:10; Start 05/22/19 at 13:00; Stop 05/22/19 at 13:01; Status DC Ondansetron HCl (Zofran) 4 mg 1X ONCE IV Last administered on 05/22/19at 13:09; Start 05/22/19 at 13:00; Stop 05/22/19 at 13:01; Status DC Acetaminophen (Tylenol) 1,000 mg 1X ONCE PO Last administered on 05/22/19at 13:08; Start 05/22/19 at 13:00; Stop 05/22/19 at 13:01; Status DC Piperacillin Sod/ Tazobactam Sod 3.375 gm/Sodium Chloride 50 ml @ 100 mls/hr 1X ONCE IV Last administered on 05/22/19at 14:15; Start 05/22/19 at 13:45; Stop 05/22/19 at 14:14; Status DC Ondansetron HCl (Zofran) 4 mg PRN Q8HRS PRN IV NAUSEA/VOMITING Last administered on 05/22/19at 17:10; Start 05/22/19 at 13:45; Stop 05/23/19 at 08:14; Status DC Fentanyl Citrate (Fentanyl 2ml Vial) 50 mcg PRN Q1HR PRN IV PAIN Last administered on 05/22/19at 14:41; Start 05/22/19 at 13:45; Stop 05/23/19 at 08:14; Status DC Norepinephrine Bitartrate 250 ml @ 42.439 mls/ hr 1X ONCE IV Last administe red on 05/22/19at 16:11; Start 05/22/19 at 14:15; Stop 05/22/19 at 20:08; Status DC Piperacillin Sod/ Tazobactam Sod 3.375 gm/Sodium Chloride 50 ml @ 100 mls/hr Q6HRS IV Last administered on 05/24/19at 11:12; Start 05/22/19 at 18:00 Micafungin Sodium 100 mg/Dextrose 100 ml @ 100 mls/hr Q24H IV Last administered on 05/23/19at 16:32; Start 05/22/19 at 16:00 Influenza Virus Vaccine Quadrival (Afluria Quad 2019-20 (3yr Up) Syringe) 0.5 ml ONCE ONCE VAX IM Last administered on 05/23/19at 09:45; Start 05/23/19 at 09:00; Stop 05/23/19 at 09:01; Status DC Albumin Human 500 ml @ 125 mls/hr 1X ONCE IV Last administered on 05/22/19at 16:15; Start 05/22/19 at 16:00; Stop 05/22/19 at 19:59; Status DC Tramadol HCl (Ultram) 50 mg PRN Q6HRS PRN PO MODERATE PAIN; Start 05/22/19 at 16:00 Hydromorphone HCl (Dilaudid) 0.4 mg PRN Q4HRS PRN IVP SEVERE PAIN Last administered on 05/22/19at 22:07; Start 05/22/19 at 16:00 Heparin Sodium (Porcine) (Heparin Sodium) 5,000 unit Q8HRS SQ Last administered on 05/24/19at 06:28; Start 05/22/19 at 22:00 Lidocaine HCl (Xylocaine-Mpf 1% 2ml Vial) 2 ml STK-MED ONCE .ROUTE ; Start 05/22/19 at 16:47; Stop 05/22/19 at 16:47; Status DC Lidocaine HCl (Lidocaine HCl 2% Abboject) 100 mg STK-MED ONCE .ROUTE ; Start 05/22/19 at 16:47; Stop 05/22/19 at 16:47; Status DC Lidocaine HCl (Xylocaine 1% Pf 30ml Vial) 30 ml STK-MED ONCE .ROUTE ; Start 05/22/19 at 16:48; Stop 05/22/19 at 16:48; Status DC Sodium Chloride 1,000 ml @ 150 mls/hr Q6H40M IV Last administered on 05/24/19a t 06:21; Start 05/22/19 at 18:15 Albumin Human 500 ml @ 125 mls/hr PRN Q24HRS PRN IV HYPOTENSION; Start 05/22/19 at 18:15; Stop 05/23/19 at 09:26; Status DC Norepinephrine Bitartrate 250 ml @ 42.524 mls/ hr CONT PRN IV SEE I/O RECORD Last administered on 05/22/19at 23:58; Start 05/22/19 at 21:00 Acetaminophen (Tylenol) 325 mg STK-MED ONCE PO ; Start 05/23/19 at 01:04; Stop 05/23/19 at 01:04; Status DC Acetaminophen (Tylenol) 650 mg PRN Q6HRS PRN PO FEVER; Start 05/23/19 at 05:30 Acetaminophen (Tylenol) 325 mg PRN Q6HRS PRN PO MILD PAIN / TEMP; Start 05/23/19 at 05:30 Lactobacillus Rhamnosus (Culturelle) 1 cap BID PO Last administered on 05/24/19at 08:27; Start 05/23/19 at 09:00 Fentanyl Citrate (Fentanyl 2ml Vial) 50 mcg PRN Q2HR PRN IVP MODERATE PAIN; Start 05/23/19 at 08:15 Ondansetron HCl (Zofran) 4 mg PRN Q6HRS PRN IVP NAUSEA/VOMITING Last administered on 05/23/19at 08:33; Start 05/23/19 at 08:15 Oxycodone/ Acetaminophen (Percocet 5/325) 1 tab PRN Q4HRS PRN PO SEVERE PAIN Last administered on 05/24/19at 11:17; Start 05/23/19 at 08:15 Linezolid (Zyvox) 600 mg BID PO Last administered on 05/24/19at 08:27; Start 05/23/19 at 11:30 Allergies Allergies: Coded Allergies: shellfish derived (Verified Allergy, Unknown, 05/22/19) ROS Review of System Per HPI Physical Exam Physical Exam GENERAL: answering questions but falling asleep, super morbid obese HEENT: OM moist NECK: Supple LUNGS: Clear, decreased at bases HEART: S1, S2 regular. ABDOMEN: Obese, soft, : Erickson in place EXTREMITIES: Right lower extremity the foot, ankle and most of the leg up to below knee has mild red, trace warmth and tender, ankle is significantly tender. SKIN: Vitiligo. NEUROLOGIC: Nonfocal PMHx : Positive for morbid obesity,hypertension and he does take some med ication to curb the appetite. Has Dx of THOM Vital Signs Vital Signs Date Time Temp Pulse Resp B/P (MAP) Pulse Ox O2 Delivery O2 Flow Rate FiO2 05/24/19 10:00 106 21 102/59 (73) 97 Nasal Cannula 2.0 05/24/19 04:00 99.2 99.2 Assessment & Plan ABDIEL- Pre-renal 2/2 Hypotensive/septic shock Resolved, Cr peaked at 2.1, back to normal E-Lytes and acid base stable Denies NSAID use , UA unremarkable except Overt proteinuria Supportive care, Monitor Right lower extremity cellulitis. Septic shock with lactic acidosis, improving, now off pressors - better HTN- On med at home THOM- reports has a Dx of THOM, cannot afford CPAP States getting it soon with help of his father Super morbid Obesity- ROJAS for Gastric Bypass in progress at [facility] Labs Labs Laboratory Tests Test 05/22/19 12:25 05/22/19 12:40 05/22/19 16:00 05/23/19 08:45 White Blood Count 21.8 x10^3/uL (4.0-11.0) 13.6 x10^3/uL (4.0-11.0) Red Blood Count 5.80 x10^6/uL (4.30-5.70) 4.79 x10^6/uL (4.30-5.70) Hemoglobin 16.6 g/dL (13.0-17.5) 13.8 g/dL (13.0-17.5) Hematocrit 49.2 % (39.0-53.0) 41.3 % (39.0-53.0) Mean Corpuscular Volume 85 fL (79-100) 86 fL (79-100) Mean Corpuscular Hemoglobin 29 pg (25-35) 29 pg (25-35) Mean Corpuscular Hemoglobin Concent 34 g/dL (31-37) 33 g/dL (31-37) Red Cell Distribution Width 14.0 % (11.5-14.5) 14.1 % (11.5-14.5) Platelet Count 192 x10^3/uL (140-400) 140 x10^3/uL (140-400) Neutrophils (%) (Auto) 93 % (31-73) 90 % (31-73) Lymphocytes (%) (Auto) 2 % (24-48) 5 % (24-48) Monocytes (%) (Auto) 5 % (0-9) 4 % (0-9) Eosinophils (%) (Auto) 0 % (0-3) 0 % (0-3) Basophils (%) (Auto) 0 % (0-3) 1 % (0-3) Neutrophils # (Auto) 20.3 x10^3/uL (1.8-7.7) 12.3 x10^3/uL (1.8-7.7) Lymphocytes # (Auto) 0.5 x10^3/uL (1.0-4.8) 0.7 x10^3/uL (1.0-4.8) Monocytes # (Auto) 1.0 x10^3/uL (0.0-1.1) 0.5 x10^3/uL (0.0-1.1) Eosinophils # (Auto) 0.0 x10^3/uL (0.0-0.7) 0.0 x10^3/uL (0.0-0.7) Basophils # (Auto) 0.0 x10^3/uL (0.0-0.2) 0.1 x10^3/uL (0.0-0.2) Segmented Neutrophils % 71 % (35-66) Band Neutrophils % 16 % (0-9) Lymphocytes % 3 % (24-48) Monocytes % 10 % (0-10) Toxic Granulation Slight Platelet Estimate Adequate (ADEQUATE) Prothrombin Time 14.5 SEC (11.7-14.0) Prothromb Time International Ratio 1.2 (0.8-1.1) Sodium Level 137 mmol/L (136-145) 139 mmol/L (136-145) Potassium Level 3.8 mmol/L (3.5-5.1) 3.7 mmol/L (3.5-5.1) Chloride Level 100 mmol/L (98-107) 103 mmol/L (98-107) Carbon Dioxide Level 29 mmol/L (21-32) 28 mmol/L (21-32) Anion Gap 8 (6-14) 8 (6-14) Blood Urea Nitrogen 22 mg/dL (8-26) 17 mg/dL (8-26) Creatinine 2.1 mg/dL (0.7-1.3) 1.2 mg/dL (0.7-1.3) Estimated GFR (Cockcroft-Gault) 38.1 72.6 BUN/Creatinine Ratio 10 (6-20) Glucose Level 98 mg/dL (70-99) 92 mg/dL (70-99) Lactic Acid Level 3.7 mmol/L (0.4-2.0) 1.8 mmol/L (0.4-2.0) Calcium Level 9.5 mg/dL (8.5-10.1) 7.8 mg/dL (8.5-10.1) Total Bilirubin 1.2 mg/dL (0.2-1.0) Aspartate Amino Transf (AST/SGOT) 35 U/L (15-37) Alanine Aminotransferase (ALT/SGPT) 88 U/L (16-63) Alkaline Phosphatase 60 U/L (46-116) Creatine Kinase 127 U/L (39-308) Troponin I Quantitative < 0.017 ng/mL (0.000-0.055) IK-Nut-G-Type Natriuretic Peptide 212 pg/mL (0-124) Total Protein 7.9 g/dL (6.4-8.2) Albumin 3.4 g/dL (3.4-5.0) Albumin/Globulin Ratio 0.8 (1.0-1.7) Procalcitonin 37.29 ng/mL (0.00-0.10) Influenza Type A Antigen Negative (NEGATIVE) Influenza Type B Antigen Negative (NEGATIVE) Urine Collection Type U cath Urine Color Dk yellow Urine Clarity Cloudy Urine pH 5.5 Urine Specific [place] 1.025 Urine Protein 100 mg/dL (NEG-TRACE) Urine Glucose (UA) Negative mg/dL (NEG) Urine Ketones (Stick) Trace mg/dL (NEG) Urine Blood Negative (NEG) Urine Nitrite Negative (NEG) Urine Bilirubin Small (NEG) Urine Urobilinogen Dipstick 1.0 mg/dL (0.2 mg/dL) Urine Leukocyte Esterase Negative (NEG) Urine RBC 0 /HPF (0-2) Urine WBC Occ /HPF (0-4) Urine Squamous Epithelial Cells Occ /LPF Urine Bacteria 0 /HPF (0-FEW) Urine Hyaline Casts Few /HPF Urine Mucus Marked /LPF Test 05/24/19 06:00 White Blood Count 11.2 x10^3/uL (4.0-11.0) Red Blood Count 4.75 x10^6/uL (4.30-5.70) Hemoglobin 13.7 g/dL (13.0-17.5) Hematocrit 41.3 % (39.0-53.0) Mean Corpuscular Volume 87 fL (79-100) Mean Corpuscular Hemoglobin 29 pg (25-35) Mean Corpuscular Hemoglobin Concent 33 g/dL (31-37) Red Cell Distribution Width 14.0 % (11.5-14.5) Platelet Count 126 x10^3/uL (140-400) Neutrophils (%) (Auto) 88 % (31-73) Lymphocytes (%) (Auto) 6 % (24-48) Monocytes (%) (Auto) 5 % (0-9) Eosinophils (%) (Auto) 0 % (0-3) Basophils (%) (Auto) 0 % (0-3) Neutrophils # (Auto) 9.9 x10^3/uL (1.8-7.7) Lymphocytes # (Auto) 0.7 x10^3/uL (1.0-4.8) Monocytes # (Auto) 0.6 x10^3/uL (0.0-1.1) Eosinophils # (Auto) 0.0 x10^3/uL (0.0-0.7) Basophils # (Auto) 0.0 x10^3/uL (0.0-0.2) Erythrocyte Sedimentation Rate 43 (0-15) Sodium Level 136 mmol/L (136-145) Potassium Level 4.0 mmol/L (3.5-5.1) Chloride Level 102 mmol/L (98-107) Carbon Dioxide Level 26 mmol/L (21-32) Anion Gap 8 (6-14) Blood Urea Nitrogen 11 mg/dL (8-26) Creatinine 0.9 mg/dL (0.7-1.3) Estimated GFR (Cockcroft-Gault) 101.2 Glucose Level 104 mg/dL (70-99) Calcium Level 8.1 mg/dL (8.5-10.1) Procalcitonin 13.85 ng/mL (0.00-0.10) Laboratory Tests Test 05/24/19 06:00 White Blood Count 11.2 x10^3/uL (4.0-11.0) Red Blood Count 4.75 x10^6/uL (4.30-5.70) Hemoglobin 13.7 g/dL (13.0-17.5) Hematocrit 41.3 % (39.0-53.0) Mean Corpuscular Volume 87 fL (79-100) Mean Corpuscular Hemoglobin 29 pg (25-35) Mean Corpuscular Hemoglobin Concent 33 g/dL (31-37) Red Cell Distribution Width 14.0 % (11.5-14.5) Platelet Count 126 x10^3/uL (140-400) Neutrophils (%) (Auto) 88 % (31-73) Lymphocytes (%) (Auto) 6 % (24-48) Monocytes (%) (Auto) 5 % (0-9) Eosinophils (%) (Auto) 0 % (0-3) Basophils (%) (Auto) 0 % (0-3) Neutrophils # (Auto) 9.9 x10^3/uL (1.8-7.7) Lymphocytes # (Auto) 0.7 x10^3/uL (1.0-4.8) Monocytes # (Auto) 0.6 x10^3/uL (0.0-1.1) Eosinophils # (Auto) 0.0 x10^3/uL (0.0-0.7) Basophils # (Auto) 0.0 x10^3/uL (0.0-0.2) Erythrocyte Sedimentation Rate 43 (0-15) Sodium Level 136 mmol/L (136-145) Potassium Level 4.0 mmol/L (3.5-5.1) Chloride Level 102 mmol/L (98-107) Carbon Dioxide Level 26 mmol/L (21-32) Anion Gap 8 (6-14) Blood Urea Nitrogen 11 mg/dL (8-26) Creatinine 0.9 mg/dL (0.7-1.3) Estimated GFR (Cockcroft-Gault) 101.2 Glucose Level 104 mg/dL (70-99) Calcium Level 8.1 mg/dL (8.5-10.1) Procalcitonin 13.85 ng/mL (0.00-0.10) Review All relevant outside records, renal labs, imaging studies, telemetry/EKG's were reviewed. Images Images US- The study is extremely limited due to patient's body habitus and overlying bowel gas. Kidneys are secured due to above-mentioned reasons and are not visualized. The urinary bladder is decompressed secondary to Erickson's catheter. CxR-- 1. Right IJ with the tip in the superior vena cava. 2. Redemonstrated prominence of the cardiomediastinal silhouette that is likely accentuated by low lung volumes. The central vascular structures are prominent as well. Increased lung markings could represent a degree of pulmonary edema however given patient body habitus, a component of this appearance could also be related to extensive overlying soft tissues. ANN MORGAN MD May 24, 2019 11:54
--- NOTE | 2019-05-24 13:18 | PDOC ---
PROGRESS NOTES Chief Complaint Chief Complaint Bilateral LE cellulitis with hypotension - skin intact Septic shock MOribid obesity BMI 33.5 HTN on home emds NOW HYPOTENSIVE SInus tachycardia sec to sepsis History of Present Illness History of Present Illness off levophed since yesterday friday NS 1500c hr wiTH VERY GOOD UO and SBP now 150s LEss red leg Ate good PLAN: Ok to t,o ICU to tele bed AMbulate - dc heparin SQ COnt iv abx per ID Dc pappas Current IVF to consume dw [place] Vitals Vitals Vital Signs Date Time Temp Pulse Resp B/P (MAP) Pulse Ox O2 Delivery O2 Flow Rate FiO2 05/24/19 12:00 Nasal Cannula 2.0 05/24/19 10:00 106 21 102/59 (73) 97 05/24/19 04:00 99.2 99.2 Physical Exam Physical Exam GENERAL: Propped up in bed, alert, looks comfortable HEENT: Both pupils are round and reacting. No conjunctival lesion, no lesion i n the mouth. NECK: Supple, no JVP, no lymphadenopathy. LUNGS: Clear. HEART: S1, S2 regular. ABDOMEN: Obese, soft, nontender : Pappas in place EXTREMITIES: Right lower extremity the foot, ankle and most of the leg up to below knee has mild red, trace warmth and tender, ankle is significantly tender. SKIN: Vitiligo. Tinea between the toes and some cracks in the skin from a dry skin on the heel. Right inguinal tender lymphadenopathy as well as a yeast infection in the skin in to the groin. NEUROLOGIC: Nonfocal RIJ clean General: Alert, Oriented X3, Cooperative, No acute distress Heart: Normal S1, Normal S2, Other (sinus tachy) Lungs: Clear Abdomen: Normal bowel sounds, Soft, No hepatosplenomegaly, No masses, Other (diffuse mild tenderness) Extremities: No clubbing, No cyanosis, Other (RLE tender, swollen 3+) Skin: No rashes, Other (RLE rash as below) Labs LABS Laboratory Tests Test 05/24/19 06:00 White Blood Count 11.2 x10^3/uL (4.0-11.0) Red Blood Count 4.75 x10^6/uL (4.30-5.70) Hemoglobin 13.7 g/dL (13.0-17.5) Hematocrit 41.3 % (39.0-53.0) Mean Corpuscular Volume 87 fL (79-100) Mean Corpuscular Hemoglobin 29 pg (25-35) Mean Corpuscular Hemoglobin Concent 33 g/dL (31-37) Red Cell Distribution Width 14.0 % (11.5-14.5) Platelet Count 126 x10^3/uL (140-400) Neutrophils (%) (Auto) 88 % (31-73) Lymphocytes (%) (Auto) 6 % (24-48) Monocytes (%) (Auto) 5 % (0-9) Eosinophils (%) (Auto) 0 % (0-3) Basophils (%) (Auto) 0 % (0-3) Neutrophils # (Auto) 9.9 x10^3/uL (1.8-7.7) Lymphocytes # (Auto) 0.7 x10^3/uL (1.0-4.8) Monocytes # (Auto) 0.6 x10^3/uL (0.0-1.1) Eosinophils # (Auto) 0.0 x10^3/uL (0.0-0.7) Basophils # (Auto) 0.0 x10^3/uL (0.0-0.2) Erythrocyte Sedimentation Rate 43 (0-15) Sodium Level 136 mmol/L (136-145) Potassium Level 4.0 mmol/L (3.5-5.1) Chloride Level 102 mmol/L (98-107) Carbon Dioxide Level 26 mmol/L (21-32) Anion Gap 8 (6-14) Blood Urea Nitrogen 11 mg/dL (8-26) Creatinine 0.9 mg/dL (0.7-1.3) Estimated GFR (Cockcroft-Gault) 101.2 Glucose Level 104 mg/dL (70-99) Calcium Level 8.1 mg/dL (8.5-10.1) Procalcitonin 13.85 ng/mL (0.00-0.10) Review of Systems Review of Systems neg 14 pt reviewed with him Assessment and Plan Assessmemt and Plan Problems Medical Problems: (1) Cellulitis Status: Acute (2) Sepsis Status: Acute Comment Review of Relevant I have reviewed the following items miracle (where applicable) has been applied. Labs Laboratory Tests Test 05/22/19 16:00 05/23/19 08:45 05/24/19 06:00 Urine Collection Type U cath Urine Color Dk yellow Urine Clarity Cloudy Urine pH 5.5 Urine Specific [place] 1.025 Urine Protein 100 mg/dL (NEG-TRACE) Urine Glucose (UA) Negative mg/dL (NEG) Urine Ketones (Stick) Trace mg/dL (NEG) Urine Blood Negative (NEG) Urine Nitrite Negative (NEG) Urine Bilirubin Small (NEG) Urine Urobilinogen Dipstick 1.0 mg/dL (0.2 mg/dL) Urine Leukocyte Esterase Negative (NEG) Urine RBC 0 /HPF (0-2) Urine WBC Occ /HPF (0-4) Urine Squamous Epithelial Cells Occ /LPF Urine Bacteria 0 /HPF (0-FEW) Urine Hyaline Casts Few /HPF Urine Mucus Marked /LPF Lactic Acid Level 1.8 mmol/L (0.4-2.0) White Blood Count 13.6 x10^3/uL (4.0-11.0) 11.2 x10^3/uL (4.0-11.0) Red Blood Count 4.79 x10^6/uL (4.30-5.70) 4.75 x10^6/uL (4.30-5.70) Hemoglobin 13.8 g/dL (13.0-17.5) 13.7 g/dL (13.0-17.5) Hematocrit 41.3 % (39.0-53.0) 41.3 % (39.0-53.0) Mean Corpuscular Volume 86 fL (79-100) 87 fL (79-100) Mean Corpuscular Hemoglobin 29 pg (25-35) 29 pg (25-35) Mean Corpuscular Hemoglobin Concent 33 g/dL (31-37) 33 g/dL (31-37) Red Cell Distribution Width 14.1 % (11.5-14.5) 14.0 % (11.5-14.5) Platelet Count 140 x10^3/uL (140-400) 126 x10^3/uL (140-400) Neutrophils (%) (Auto) 90 % (31-73) 88 % (31-73) Lymphocytes (%) (Auto) 5 % (24-48) 6 % (24-48) Monocytes (%) (Auto) 4 % (0-9) 5 % (0-9) Eosinophils (%) (Auto) 0 % (0-3) 0 % (0-3) Basophils (%) (Auto) 1 % (0-3) 0 % (0-3) Neutrophils # (Auto) 12.3 x10^3/uL (1.8-7.7) 9.9 x10^3/uL (1.8-7.7) Lymphocytes # (Auto) 0.7 x10^3/uL (1.0-4.8) 0.7 x10^3/uL (1.0-4.8) Monocytes # (Auto) 0.5 x10^3/uL (0.0-1.1) 0.6 x10^3/uL (0.0-1.1) Eosinophils # (Auto) 0.0 x10^3/uL (0.0-0.7) 0.0 x10^3/uL (0.0-0.7) Basophils # (Auto) 0.1 x10^3/uL (0.0-0.2) 0.0 x10^3/uL (0.0-0.2) Sodium Level 139 mmol/L (136-145) 136 mmol/L (136-145) Potassium Level 3.7 mmol/L (3.5-5.1) 4.0 mmol/L (3.5-5.1) Chloride Level 103 mmol/L (98-107) 102 mmol/L (98-107) Carbon Dioxide Level 28 mmol/L (21-32) 26 mmol/L (21-32) Anion Gap 8 (6-14) 8 (6-14) Blood Urea Nitrogen 17 mg/dL (8-26) 11 mg/dL (8-26) Creatinine 1.2 mg/dL (0.7-1.3) 0.9 mg/dL (0.7-1.3) Estimated GFR (Cockcroft-Gault) 72.6 101.2 Glucose Level 92 mg/dL (70-99) 104 mg/dL (70-99) Calcium Level 7.8 mg/dL (8.5-10.1) 8.1 mg/dL (8.5-10.1) Erythrocyte Sedimentation Rate 43 (0-15) Procalcitonin 13.85 ng/mL (0.00-0.10) Laboratory Tests Test 05/24/19 06:00 White Blood Count 11.2 x10^3/uL (4.0-11.0) Red Blood Count 4.75 x10^6/uL (4.30-5.70) Hemoglobin 13.7 g/dL (13.0-17.5) Hematocrit 41.3 % (39.0-53.0) Mean Corpuscular Volume 87 fL (79-100) Mean Corpuscular Hemoglobin 29 pg (25-35) Mean Corpuscular Hemoglobin Concent 33 g/dL (31-37) Red Cell Distribution Width 14.0 % (11.5-14.5) Platelet Count 126 x10^3/uL (140-400) Neutrophils (%) (Auto) 88 % (31-73) Lymphocytes (%) (Auto) 6 % (24-48) Monocytes (%) (Auto) 5 % (0-9) Eosinophils (%) (Auto) 0 % (0-3) Basophils (%) (Auto) 0 % (0-3) Neutrophils # (Auto) 9.9 x10^3/uL (1.8-7.7) Lymphocytes # (Auto) 0.7 x10^3/uL (1.0-4.8) Monocytes # (Auto) 0.6 x10^3/uL (0.0-1.1) Eosinophils # (Auto) 0.0 x10^3/uL (0.0-0.7) Basophils # (Auto) 0.0 x10^3/uL (0.0-0.2) Erythrocyte Sedimentation Rate 43 (0-15) Sodium Level 136 mmol/L (136-145) Potassium Level 4.0 mmol/L (3.5-5.1) Chloride Level 102 mmol/L (98-107) Carbon Dioxide Level 26 mmol/L (21-32) Anion Gap 8 (6-14) Blood Urea Nitrogen 11 mg/dL (8-26) Creatinine 0.9 mg/dL (0.7-1.3) Estimated GFR (Cockcroft-Gault) 101.2 Glucose Level 104 mg/dL (70-99) Calcium Level 8.1 mg/dL (8.5-10.1) Procalcitonin 13.85 ng/mL (0.00-0.10) Microbiology 05/22/19 Blood Culture - Preliminary, Resulted NO GROWTH AFTER 1 DAY Medications Current Medications Sodium Chloride 1,000 ml @ 2,250 mls/hr Q27M IV Last administered on 05/22/19 16:17; Start 05/22/19 at 12:33; Stop 05/22/19 at 13:33; Status DC Vancomycin HCl (Vanco Per Pharmacy) 1 each PRN DAILY PRN MC SEE COMMENTS; Start 05/22/19 at 12:45; Stop 05/22/19 at 15:19; Status DC Vancomycin HCl 2 gm/Sodium Chloride 500 ml @ 250 mls/hr 1X ONCE IV Last administered on 05/22/19at 13:34; Start 05/22/19 at 13:00; Stop 05/22/19 at 14:59; Status DC Fentanyl Citrate (Fentanyl 2ml Vial) 50 mcg 1X ONCE IVP Last administered on 05/22/19at 13:10; Start 05/22/19 at 13:00; Stop 05/22/19 at 13:01; Status DC Ondansetron HCl (Zofran) 4 mg 1X ONCE IV Last administered on 05/22/19at 13:09; Start 05/22/19 at 13:00; Stop 05/22/19 at 13:01; Status DC Acetaminophen (Tylenol) 1,000 mg 1X ONCE PO Last administered on 05/22/19at 13:08; Start 05/22/19 at 13:00; Stop 05/22/19 at 13:01; Status DC Piperacillin Sod/ Tazobactam Sod 3.375 gm/Sodium Chloride 50 ml @ 100 mls/hr 1X ONCE IV Last administered on 05/22/19at 14:15; Start 05/22/19 at 13:45; Stop 05/22/19 at 14:14; Status DC Ondansetron HCl (Zofran) 4 mg PRN Q8HRS PRN IV NAUSEA/VOMITING Last administered on 05/22/19at 17:10; Start 05/22/19 at 13:45; Stop 05/23/19 at 08:14; Status DC Fentanyl Citrate (Fentanyl 2ml Vial) 50 mcg PRN Q1HR PRN IV PAIN Last administered on 05/22/19at 14:41; Start 05/22/19 at 13:45; Stop 05/23/19 at 08:14; Status DC Norepinephrine Bitartrate 250 ml @ 42.439 mls/ hr 1X ONCE IV Last administered on 05/22/19at 16:11; Start 05/22/19 at 14:15; Stop 05/22/19 at 20:08; Status DC Piperacillin Sod/ Tazobactam Sod 3.375 gm/Sodium Chloride 50 ml @ 100 mls/hr Q6HRS IV Last administered on 05/24/19at 11:12; Start 05/22/19 at 18:00 Micafungin Sodium 100 mg/Dextrose 100 ml @ 100 mls/hr Q24H IV Last administered on 05/23/19at 16:32; Start 05/22/19 at 16:00 Influenza Virus Vaccine Quadrival (Afluria Quad 2019-20 (3yr Up) Syringe) 0.5 ml ONCE ONCE VAX IM Last administered on 05/23/19at 09:45; Start 05/23/19 at 09:00; Stop 05/23/19 at 09:01; Status DC Albumin Human 500 ml @ 125 mls/hr 1X ONCE IV Last administered on 05/22/19at 16:15; Start 05/22/19 at 16:00; Stop 05/22/19 at 19:59; Status DC Tramadol HCl (Ultram) 50 mg PRN Q6HRS PRN PO MODERATE PAIN; Start 05/22/19 at 16:00 Hydromorphone HCl (Dilaudid) 0.4 mg PRN Q4HRS PRN IVP SEVERE PAIN Last administered on 05/22/19at 22:07; Start 05/22/19 at 16:00 Heparin Sodium (Porcine) (Heparin Sodium) 5,000 unit Q8HRS SQ Last administered on 05/24/19at 13:04; Start 05/22/19 at 22:00 Lidocaine HCl (Xylocaine-Mpf 1% 2ml Vial) 2 ml STK-MED ONCE .ROUTE ; Start 05/22/19 at 16:47; Stop 05/22/19 at 16:47; Status DC Lidocaine HCl (Lidocaine HCl 2% Abboject) 100 mg STK-MED ONCE .ROUTE ; Start 05/22/19 at 16:47; Stop 05/22/19 at 16:47; Status DC Lidocaine HCl (Xylocaine 1% Pf 30ml Vial) 30 ml STK-MED ONCE .ROUTE ; Start 05/22/19 at 16:48; Stop 05/22/19 at 16:48; Status DC Sodium Chloride 1,000 ml @ 150 mls/hr Q6H40M IV Last administered on 05/24/19at 06:21; Start 05/22/19 at 18:15 Albumin Human 500 ml @ 125 mls/hr PRN Q24HRS PRN IV HYPOTENSION; Start 05/22/19 at 18:15; Stop 05/23/19 at 09:26; Status DC Norepinephrine Bitartrate 250 ml @ 42.524 mls/ hr CONT PRN IV SEE I/O RECORD Last administered on 05/22/19at 23:58; Start 05/22/19 at 21:00 Acetaminophen (Tylenol) 325 mg STK-MED ONCE PO ; Start 05/23/19 at 01:04; Stop 05/23/19 at 01:04; Status DC Acetaminophen (Tylenol) 650 mg PRN Q6HRS PRN PO FEVER; Start 05/23/19 at 05:30 Acetaminophen (Tylenol) 325 mg PRN Q6HRS PRN PO MILD PAIN / TEMP; Start 05/23/19 at 05:30 Lactobacillus Rhamnosus (Culturelle) 1 cap BID PO Last administered on 05/24/19at 08:27; Start 05/23/19 at 09:00 Fentanyl Citrate (Fentanyl 2ml Vial) 50 mcg PRN Q2HR PRN IVP MODERATE PAIN; Start 05/23/19 at 08:15 Ondansetron HCl (Zofran) 4 mg PRN Q6HRS PRN IVP NAUSEA/VOMITING Last administered on 05/23/19at 08:33; Start 05/23/19 at 08:15 Oxycodone/ Acetaminophen (Percocet 5/325) 1 tab PRN Q4HRS PRN PO SEVERE PAIN Last administered on 05/24/19at 11:17; Start 05/23/19 at 08:15 Linezolid (Zyvox) 600 mg BID PO Last administered on 05/24/19at 08:27; Start 05/23/19 at 11:30 Vitals/I & O Vital Sign - Last 24 Hours 05/23/19 05/23/19 05/23/19 05/23/19 14:00 14:09 15:00 15:09 Pulse 113 112 Resp 23 23 20 20 B/P (MAP) 168/73 (104) 109/51 (70) Pulse Ox 99 100 99 2 O2 Delivery Nasal Cannula Nasal Cannula Nasal Cannula Nasal Cannula O2 Flow Rate 2.0 2.0 2.0 05/23/19 05/23/19 05/23/19 05/23/19 16:00 16:00 17:00 18:00 Pulse 110 108 117 Resp 22 B/P (MAP) 114/61 (78) 121/65 (83) 165/68 (100) Pulse Ox 97 99 99 O2 Delivery Nasal Cannula Nasal Cannula Nasal Cannula Nasal Cannula O2 Flow Rate 2.0 2.0 2.0 2.0 05/23/19 05/23/19 05/23/19 05/23/19 19:00 19:40 20:00 20:00 Temp 100.1 100.1 Pulse 111 106 Resp 22 B/P (MAP) 112/43 (66) 137/72 (93) Pulse Ox 94 96 97 O2 Delivery Nasal Cannula Nasal Cannula Nasal Cannula Nasal Cannula O2 Flow Rate 2.0 2.0 2.0 2.0 05/23/19 05/23/19 05/23/19 05/23/19 20:41 21:00 22:00 23:00 Pulse 104 109 117 Resp 22 23 25 B/P (MAP) 90/48 (62) 151/86 (107) 125/66 (85) Pulse Ox 97 94 97 92 O2 Delivery Nasal Cannula Nasal Cannula Nasal Cannula Nasal Cannula O2 Flow Rate 2.0 2.0 2.0 2.0 05/24/19 05/24/19 05/24/19 05/24/19 00:00 00:00 01:00 02:00 Temp 98.8 98.8 Pulse 113 106 92 Resp 20 17 B/P (MAP) 159/67 (97) 113/68 (83) 120/85 (97) Pulse Ox 94 95 96 O2 Delivery Nasal Cannula Nasal Cannula Nasal Cannula Nasal Cannula O2 Flow Rate 2.0 2.0 2.0 2.0 05/24/19 05/24/19 05/24/19 05/24/19 03:00 04:00 04:00 05:00 Temp 99.2 99.2 Pulse 103 99 109 Resp 20 28 22 B/P (MAP) 113/77 (89) 158/67 (97) 98/54 (69) Pulse Ox 92 97 94 O2 Delivery Nasal Cannula Nasal Cannula Nasal Cannula Nasal Cannula O2 Flow Rate 2.0 2.0 2.0 2.0 05/24/19 05/24/19 05/24/19 05/24/19 06:00 07:00 08:00 08:00 Pulse 101 102 100 Resp 27 34 31 B/P (MAP) 134/77 (96) 149/76 (100) 154/104 (121) Pulse Ox 98 89 90 O2 Delivery Nasal Cannula Nasal Cannula Nasal Cannula Nasal Cannula O2 Flow Rate 2.0 2.0 2.0 2.0 05/24/19 05/24/19 05/24/19 09:00 10:00 12:00 Pulse 92 106 Resp 28 21 B/P (MAP) 133/87 (102) 102/59 (73) Pulse Ox 94 97 O2 Delivery Nasal Cannula Nasal Cannula Nasal Cannula O2 Flow Rate 2.0 2.0 2.0 Intake and Output 05/23/19 05/23/19 05/24/19 15:00 23:00 07:00 Intake Total 1150 ml 2700 ml 1943.4 ml Output Total 1265 ml 895 ml 1750 ml Balance -115 ml 1805 ml 193.4 ml DEVEN TRENT MD May 24, 2019 13:18
[2019-05-24] MEDS: MICAFUNGIN 100 MG in IV DEXTROSE 5% 100ML 100 ML IV SCH (15:30)
--- NOTE | 2019-05-24 16:14 | NUR ---
SS following for discharge planning. SS reviewed pt chart. Pt is from home and is currently on room air. SS will continue to follow for discharge planning.
[2019-05-25] MEDS: PIPERACILLIN/TAZOBACTAM 3.375 GM in IV NORMAL SALINE 50ML 50 ML IV SCH ×5 (00:33→23:44)
[2019-05-25 03:00] VITALS: BP 156/78
--- NOTE | 2019-05-25 07:12 | PDOC ---
Infectious Disease Note Subjective Subjective Right leg pain some better yet - able to stand yesterday + BM Slept some last night some nausea BP better, off pressors + Appetite ROS ROS o/w neg Vital Sign Vital Signs Vital Signs Date Time Temp Pulse Resp B/P (MAP) Pulse Ox O2 Delivery O2 Flow Rate FiO2 05/25/19 03:00 98.9 101 28 156/78 (104) 98 Nasal Cannula 2.0 98.9 Physical Exam PHYSICAL EXAM GENERAL: Propped up in bed, alert, looks comfortable HEENT: Both pupils are round and reacting. No conjunctival lesion, no lesion in the mouth. NECK: Supple, no JVP, no lymphadenopathy. LUNGS: Clear. HEART: S1, S2 regular. ABDOMEN: Obese, soft, nontender : Erickson in place EXTREMITIES: Right lower extremity the foot, ankle and most of the leg up to below knee has mild red, trace warmth and tender, ankle is less tender. SKIN: Vitiligo. Tinea between the toes and some cracks in the skin from a dry skin on the heel. Right inguinal tender lymphadenopathy as well as a yeast infection in the skin in to the groin. NEUROLOGIC: Nonfocal RIJ clean Labs Micro Microbiology 05/22/19 Blood Culture - Preliminary, Resulted NO GROWTH AFTER 1 DAY Objective Assessment Right lower extremity cellulitis - improving. Septic shock with lactic acidosis, improving, now off pressors - better Leukocytosis - better Acute kidney injury - better Fever - better. History of hypertension. Super morbid obesity, going for gastric bypass. Plan Plan of Care Continue Zosyn and zyvox D/c Micafungin and begin po Fluconazole Monitor R ankle area some better Tubigrip and outlineerythema One time dose vancomycin given on May 22 F/u cultures D/w nursing Critically ill - better D/w family JENY ESQUIVEL MD May 25, 2019 07:12
[2019-05-25] MEDS: LINEZOLID 600 MG TABLET PO SCH ×2 (08:45→20:47)
[2019-05-25] MEDS: LACTOBACILLUS RHAMNOSUS GG 1 CAPSULE. PO SCH ×2 (08:45→20:47)
[2019-05-25] MEDS: FLUCONAZOLE 100 MG TABLET. PO SCH (08:45)
--- NOTE | 2019-05-25 08:57 | PDOC ---
SUBJECTIVE ROS Stable OBJECTIVE Vital Signs Vital Signs Date Time Temp Pulse Resp B/P (MAP) Pulse Ox O2 Delivery O2 Flow Rate FiO2 05/25/19 03:00 98.9 101 28 156/78 (104) 98 Nasal Cannula 2.0 98.9 I & 0 Intake and Output 05/25/19 07:00 Intake Total 1700 ml Output Total 2202 ml Balance -502 ml Intake Oral 800 ml IV Total 900 ml Output Urine Total 2200 ml Stool Total 2 ml PHYSICAL EXAM Physical Exam GENERAL: nad HEENT: OM moist NECK: Supple LUNGS: Clear, decreased at bases HEART: S1, S2 regular. ABDOMEN: Obese, soft, : Erickson in place EXTREMITIES: Right lower extremity the foot, ankle and most of the leg up to below knee has mild red, trace warmth and tender, ankle is significantly tender. SKIN: Vitiligo. NEUROLOGIC: Nonfocal DIAGNOSIS/ASSESSMENT Assessment & Plan ABDIEL- Pre-renal 2/2 Hypotensive/septic shock Resolved, Cr peaked at 2.1, back to normal , good uop E-Lytes and acid base stable Supportive care, Right lower extremity cellulitis. Septic shock with lactic acidosis - improved HTN- On med at home THOM- reports has a Dx of THOM, cannot afford CPAP States getting it soon with help of his father Super morbid Obesity- ROJAS for Gastric Bypass in progress at [facility] Will sign off COMMENT/RELEVANT DATA Meds Current Medications Medications (Trade) Dose Ordered Sig/Gina Start Time Stop Time Status Last Admin Dose Admin Acetaminophen (Tylenol) 325 mg PRN Q6HRS PRN 05/23/19 05:30 Albumin Human 500 ml @ 125 mls/hr PRN Q24HRS PRN 05/22/19 18:15 05/23/19 09:26 DC Fentanyl Citrate (Fentanyl 2ml Vial) 50 mcg PRN Q2HR PRN 05/23/19 08:15 Fluconazole (Diflucan) 200 mg DAILY 05/25/19 09:00 05/25/19 08:45 200 MG Heparin Sodium (Porcine) (Heparin Sodium) 5,000 unit Q8HRS 05/22/19 22:00 05/24/19 13:17 DC 05/24/19 13:04 5,000 UNIT Hydromorphone HCl (Dilaudid) 0.4 mg PRN Q4HRS PRN 05/22/19 16:00 05/22/19 22:07 0.4 MG Influenza Virus Vaccine Quadrival (Afluria Quad 2019-20 (3yr Up) Syringe) 0.5 ml ONCE ONCE 05/23/19 09:00 05/23/19 09:01 DC 05/23/19 09:45 0.5 ML Lactobacillus Rhamnosus (Culturelle) 1 cap BID 05/23/19 09:00 05/25/19 08:45 1 CAP Lidocaine HCl (Lidocaine HCl 2% Abboject) 100 mg STK-MED ONCE 05/22/19 16:47 05/22/19 16:47 DC Lidocaine HCl (Xylocaine 1% Pf 30ml Vial) 30 ml STK-MED ONCE 05/22/19 16:48 05/22/19 16:48 DC Lidocaine HCl (Xylocaine-Mpf 1% 2ml Vial) 2 ml STK-MED ONCE 05/22/19 16:47 05/22/19 16:47 DC Linezolid (Zyvox) 600 mg BID 05/23/19 11:30 05/25/19 08:45 600 MG Micafungin Sodium 100 mg/Dextrose 100 ml @ 100 mls/hr Q24H 05/22/19 16:00 05/25/19 07:31 DC 05/24/19 15:30 100 MLS/HR Norepinephrine Bitartrate 250 ml @ 42.524 mls/ hr CONT PRN 05/22/19 21:00 05/24/19 13:17 DC 05/22/19 23:58 4.252 MLS/HR Ondansetron HCl (Zofran) 4 mg PRN Q6HRS PRN 05/23/19 08:15 05/23/19 08:33 4 MG Oxycodone/ Acetaminophen (Percocet 5/325) 1 tab PRN Q4HRS PRN 05/23/19 08:15 05/24/19 17:33 1 TAB Piperacillin Sod/ Tazobactam Sod 3.375 gm/Sodium Chloride 50 ml @ 100 mls/hr Q6HRS 05/22/19 18:00 05/25/19 06:02 100 MLS/HR Sodium Chloride 1,000 ml @ 150 mls/hr Q6H40M 05/22/19 18:15 05/24/19 13:17 DC 05/24/19 06:21 150 MLS/HR Tramadol HCl (Ultram) 50 mg PRN Q6HRS PRN 05/22/19 16:00 Vancomycin HCl (Vanco Per Pharmacy) 1 each PRN DAILY PRN 05/22/19 12:45 05/22/19 15:19 DC Vancomycin HCl 2 gm/Sodium Chloride 500 ml @ 250 mls/hr 1X ONCE 05/22/19 13:00 05/22/19 14:59 DC 05/22/19 13:34 250 MLS/HR Results All relevant outside records, renal labs, imaging studies, telemetry/EKG's were reviewed. ANN MORGAN MD May 25, 2019 08:57
[2019-05-25 09:00] VITALS: BP 149/91
[2019-05-25] MEDS: ONDANSETRON PF 4 MG/2 ML VIAL. IVP PRN (09:11)
--- NOTE | 2019-05-25 10:29 | PDOC ---
PROGRESS NOTES Chief Complaint Chief Complaint Bilateral LE cellulitis with hypotension - skin intact Septic shock HTN, was hypotensive now NORMALIZED SInus tachycardia sec to sepsis History of Present Illness History of Present Illness off levophed since yesterday friday SBP 150s LEg redeness looks better! He also ambulated BC prelim neg PLAN: Ok to t,o ICU to NON tele bed pappas out voiding freely NS off Eat, ambulatye HOme once on PO abx could be in 1-2 days AMbulate - dc heparin SQ ok to cont his home appetite suppressant pill dw MANAGER INFORMATION Vitals Vitals Vital Signs Date Time Temp Pulse Resp B/P (MAP) Pulse Ox O2 Delivery O2 Flow Rate FiO2 05/25/19 09:00 98.5 106 42 149/91 (110) 99 Room Air 98.5 05/25/19 03:00 2.0 Physical Exam Physical Exam GENERAL: Propped up in bed, alert, looks comfortable HEENT: Both pupils are round and reacting. No conjunctival lesion, no lesion in the mouth. NECK: Supple, no JVP, no lymphadenopathy. LUNGS: Clear. HEART: S1, S2 regular. ABDOMEN: Obese, soft, nontender : Pappas in place EXTREMITIES: Right lower extremity the foot, ankle and most of the leg up to below knee has mild red, trace warmth and tender, ankle is less tender. SKIN: Vitiligo. Tinea between the toes and some cracks in the skin from a dry skin on the heel. Right inguinal tender lymphadenopathy as well as a yeast infection in the skin in to the groin. NEUROLOGIC: Nonfocal RIJ clean General: Alert, Oriented X3, Cooperative, No acute distress Heart: Normal S1, Normal S2, Other (sinus tachy) Lungs: Clear Abdomen: Normal bowel sounds, Soft, No hepatosplenomegaly, No masses, Other (diffuse mild tenderness) Extremities: No clubbing, No cyanosis, Other (RLE tender, swollen 3+) Skin: No rashes, Other (RLE rash as below) Review of Systems Review of Systems neg 14 pt reviewed with him Assessment and Plan Assessmemt and Plan Problems Medical Problems: (1) Cellulitis Status: Acute (2) Sepsis Status: Acute Comment Review of Relevant I have reviewed the following items miracle (where applicable) has been applied. Labs Laboratory Tests Test 05/24/19 06:00 White Blood Count 11.2 x10^3/uL (4.0-11.0) Red Blood Count 4.75 x10^6/uL (4.30-5.70) Hemoglobin 13.7 g/dL (13.0-17.5) Hematocrit 41.3 % (39.0-53.0) Mean Corpuscular Volume 87 fL (79-100) Mean Corpuscular Hemoglobin 29 pg (25-35) Mean Corpuscular Hemoglobin Concent 33 g/dL (31-37) Red Cell Distribution Width 14.0 % (11.5-14.5) Platelet Count 126 x10^3/uL (140-400) Neutrophils (%) (Auto) 88 % (31-73) Lymphocytes (%) (Auto) 6 % (24-48) Monocytes (%) (Auto) 5 % (0-9) Eosinophils (%) (Auto) 0 % (0-3) Basophils (%) (Auto) 0 % (0-3) Neutrophils # (Auto) 9.9 x10^3/uL (1.8-7.7) Lymphocytes # (Auto) 0.7 x10^3/uL (1.0-4.8) Monocytes # (Auto) 0.6 x10^3/uL (0.0-1.1) Eosinophils # (Auto) 0.0 x10^3/uL (0.0-0.7) Basophils # (Auto) 0.0 x10^3/uL (0.0-0.2) Erythrocyte Sedimentation Rate 43 (0-15) Sodium Level 136 mmol/L (136-145) Potassium Level 4.0 mmol/L (3.5-5.1) Chloride Level 102 mmol/L (98-107) Carbon Dioxide Level 26 mmol/L (21-32) Anion Gap 8 (6-14) Blood Urea Nitrogen 11 mg/dL (8-26) Creatinine 0.9 mg/dL (0.7-1.3) Estimated GFR (Cockcroft-Gault) 101.2 Glucose Level 104 mg/dL (70-99) Calcium Level 8.1 mg/dL (8.5-10.1) Procalcitonin 13.85 ng/mL (0.00-0.10) Microbiology 05/22/19 Blood Culture - Preliminary, Resulted NO GROWTH AFTER 2 DAYS Medications Current Medications Sodium Chloride 1,000 ml @ 2,250 mls/hr Q27M IV Last administered on 05/22/19at 16:17; Start 05/22/19 at 12:33; Stop 05/22/19 at 13:33; Status DC Vancomycin HCl (Vanco Per Pharmacy) 1 each PRN DAILY PRN MC SEE COMMENTS; Start 05/22/19 at 12:45; Stop 05/22/19 at 15:19; Status DC Vancomycin HCl 2 gm/Sodium Chloride 500 ml @ 250 mls/hr 1X ONCE IV Last administered on 05/22/19at 13:34; Start 05/22/19 at 13:00; Stop 05/22/19 at 14:59; Status DC Fentanyl Citrate (Fentanyl 2ml Vial) 50 mcg 1X ONCE IVP Last administered on 05/22/19at 13:10; Start 05/22/19 at 13:00; Stop 05/22/19 at 13:01; Status DC Ondansetron HCl (Zofran) 4 mg 1X ONCE IV Last administered on 05/22/19at 13:09; Start 05/22/19 at 13:00; Stop 05/22/19 at 13:01; Status DC Acetaminophen (Tylenol) 1,000 mg 1X ONCE PO Last administered on 05/22/19at 13:08; Start 05/22/19 at 13:00; Stop 05/22/19 at 13:01; Status DC Piperacillin Sod/ Tazobactam Sod 3.375 gm/Sodium Chloride 50 ml @ 100 mls/hr 1X ONCE IV Last administered on 05/22/19at 14:15; Start 05/22/19 at 13:45; Stop 05/22/19 at 14:14; Status DC Ondansetron HCl (Zofran) 4 mg PRN Q8HRS PRN IV NAUSEA/VOMITING Last administered on 05/22/19at 17:10; Start 05/22/19 at 13:45; Stop 05/23/19 at 08:14; Status DC Fentanyl Citrate (Fentanyl 2ml Vial) 50 mcg PRN Q1HR PRN IV PAIN Last administered on 05/22/19at 14:41; Start 05/22/19 at 13:45; Stop 05/23/19 at 08:14; Status DC Norepinephrine Bitartrate 250 ml @ 42.439 mls/ hr 1X ONCE IV Last administered on 05/22/19at 16:11; Start 05/22/19 at 14:15; Stop 05/22/19 at 20:08; Status DC Piperacillin Sod/ Tazobactam Sod 3.375 gm/Sodium Chloride 50 ml @ 100 mls/hr Q6HRS IV Last administered on 05/25/19at 06:02; Start 05/22/19 at 18:00 Micafungin Sodium 100 mg/Dextrose 100 ml @ 100 mls/hr Q24H IV Last administered on 05/24/19at 15:30; Start 05/22/19 at 16:00; Stop 05/25/19 at 07:31; Status DC Influenza Virus Vaccine Quadrival (Afluria Quad 2019-20 (3yr Up) Syringe) 0.5 ml ONCE ONCE VAX IM Last administered on 05/23/19at 09:45; Start 05/23/19 at 09:00; Stop 05/23/19 at 09:01; Status DC Albumin Human 500 ml @ 125 mls/hr 1X ONCE IV Last administered on 05/22/19at 16:15; Start 05/22/19 at 16:00; Stop 05/22/19 at 19:59; Status DC Tramadol HCl (Ultram) 50 mg PRN Q6HRS PRN PO MODERATE PAIN; Start 05/22/19 at 16:00 Hydromorphone HCl (Dilaudid) 0.4 mg PRN Q4HRS PRN IVP SEVERE PAIN Last administered on 05/22/19at 22:07; Start 05/22/19 at 16:00 Heparin Sodium (Porcine) (Heparin Sodium) 5,000 unit Q8HRS SQ Last administered on 05/24/19at 13:04; Start 05/22/19 at 22:00; Stop 05/24/19 at 13:17; Status DC Lidocaine HCl (Xylocaine-Mpf 1% 2ml Vial) 2 ml STK-MED ONCE .ROUTE ; Start 05/22/19 at 16:47; Stop 05/22/19 at 16:47; Status DC Lidocaine HCl (Lidocaine HCl 2% Abboject) 100 mg STK-MED ONCE .ROUTE ; Start 05/22/19 at 16:47; Stop 05/22/19 at 16:47; Status DC Lidocaine HCl (Xylocaine 1% Pf 30ml Vial) 30 ml STK-MED ONCE .ROUTE ; Start 05/22/19 at 16:48; Stop 05/22/19 at 16:48; Status DC Sodium Chloride 1,000 ml @ 150 mls/hr Q6H40M IV Last administered on 05/24/19at 06:21; Start 05/22/19 at 18:15; Stop 05/24/19 at 13:17; Status DC Albumin Human 500 ml @ 125 mls/hr PRN Q24HRS PRN IV HYPOTENSION; Start 05/22/19 at 18:15; Stop 05/23/19 at 09:26; Status DC Norepinephrine Bitartrate 250 ml @ 42.524 mls/ hr CONT PRN IV SEE I/O RECORD Last administered on 05/22/19at 23:58; Start 05/22/19 at 21:00; Stop 05/24/19 at 13:17; Status DC Acetaminophen (Tylenol) 325 mg STK-MED ONCE PO ; Start 05/23/19 at 01:04; Stop 05/23/19 at 01:04; Status DC Acetaminophen (Tylenol) 650 mg PRN Q6HRS PRN PO FEVER; Start 05/23/19 at 05:30 Acetaminophen (Tylenol) 325 mg PRN Q6HRS PRN PO MILD PAIN / TEMP; Start 05/23/19 at 05:30 Lactobacillus Rhamnosus (Culturelle) 1 cap BID PO Last administered on 05/25/19at 08:45; Start 05/23/19 at 09:00 Fentanyl Citrate (Fentanyl 2ml Vial) 50 mcg PRN Q2HR PRN IVP MODERATE PAIN; Start 05/23/19 at 08:15 Ondansetron HCl (Zofran) 4 mg PRN Q6HRS PRN IVP NAUSEA/VOMITING Last administered on 05/25/19at 09:11; Start 05/23/19 at 08:15 Oxycodone/ Acetaminophen (Percocet 5/325) 1 tab PRN Q4HRS PRN PO SEVERE PAIN Last administered on 05/24/19at 17:33; Start 05/23/19 at 08:15 Linezolid (Zyvox) 600 mg BID PO Last administered on 05/25/19at 08:45; Start 05/23/19 at 11:30 Fluconazole (Diflucan) 200 mg DAILY PO Last administered on 05/25/19at 08:45; Start 05/25/19 at 09:00 Vitals/I & O Vital Sign - Last 24 Hours 05/24/19 05/24/19 05/24/19 05/24/19 12:00 12:00 13:00 14:00 Temp 100.1 100.1 Pulse 108 110 104 Resp 24 32 24 B/P (MAP) 169/86 (113) 152/74 (100) 117/71 (86) Pulse Ox 94 99 93 O2 Delivery Nasal Cannula Nasal Cannula Room Air Room Air O2 Flow Rate 2.0 2.0 05/24/19 05/24/19 05/24/19 05/24/19 19:00 20:00 20:51 23:20 Temp 98.9 98.9 98.9 98.9 Pulse 107 100 Resp 55 16 28 B/P (MAP) 150/76 (100) 162/80 (107) Pulse Ox 96 96 98 O2 Delivery Nasal Cannula Nasal Cannula Nasal Cannula Nasal Cannula O2 Flow Rate 2.0 2.0 2.0 2.0 05/25/19 05/25/19 05/25/19 03:00 08:00 09:00 Temp 98.9 98.5 98.9 98.5 Pulse 101 106 Resp 28 42 B/P (MAP) 156/78 (104) 149/91 (110) Pulse Ox 98 99 O2 Delivery Nasal Cannula Room Air Room Air O2 Flow Rate 2.0 Intake and Output 05/24/19 05/24/19 05/25/19 15:00 23:00 07:00 Intake Total 1500 ml 150 ml 50 ml Output Total 1350 ml 452 ml 400 ml Balance 150 ml -302 ml -350 ml DEVEN TRENT MD May 25, 2019 10:29
[2019-05-25 11:00] VITALS: BP 178/103
[2019-05-25] MEDS: oxyCODONE/APAP 5/325 1 TAB TABLET PO PRN ×2 (11:20→20:48)
[2019-05-25 15:00] VITALS: BP 126/72
[2019-05-25 19:45] VITALS: BP 147/93
[2019-05-25 23:00] VITALS: BP 174/99
[2019-05-26 03:00] VITALS: BP 146/89
[2019-05-26] MEDS: PIPERACILLIN/TAZOBACTAM 3.375 GM in IV NORMAL SALINE 50ML 50 ML IV SCH ×3 (05:30→17:46)
[2019-05-26 05:55] LABS: BASO # 0.1 x10^3/uL (0.0-0.2); BASO % 1 % (0-3); EOS % 0 % (0-3); HEMATOCRIT 41.6 % (39.0-53.0); HEMOGLOBIN 14.1 g/dL (13.0-17.5); LYMPH % 11 % (24-48); MEAN CORPUSCULAR HEMOGLOBIN 29 pg (25-35); MEAN CORPUSCULAR HGB CONC 34 g/dL (31-37); MEAN CORPUSCULAR VOLUME 86 fL (79-100); MONO # 0.8 x10^3/uL (0.0-1.1); MONO % 8 % (0-9); NEUT # 7.7 x10^3/uL (1.8-7.7); NEUT % 80 % (31-73); PLATELET COUNT 174 x10^3/uL (140-400); RED BLOOD COUNT 4.82 x10^6/uL (4.30-5.70); RED CELL DISTRIBUTION WIDTH 13.6 % (11.5-14.5); WHITE BLOOD COUNT 9.7 x10^3/uL (4.0-11.0)
[2019-05-26 06:11] LABS: CALCIUM 8.2 mg/dL (8.5-10.1); CREATININE 0.8 mg/dL (0.7-1.3); POTASSIUM 3.9 mmol/L (3.5-5.1)
[2019-05-26 07:00] VITALS: BP 131/86
[2019-05-26] MEDS: LINEZOLID 600 MG TABLET PO SCH ×2 (09:58→21:03)
[2019-05-26] MEDS: LACTOBACILLUS RHAMNOSUS GG 1 CAPSULE. PO SCH ×2 (09:58→21:03)
[2019-05-26] MEDS: FLUCONAZOLE 100 MG TABLET. PO SCH (09:58)
--- NOTE | 2019-05-26 10:55 | PDOC ---
Infectious Disease Note Subjective Subjective Right leg pain some better yet - still some pain with ambulation + BM Slept some last night some nausea in am only after meds + Appetite - ate lunch and dinner ROS ROS o/w neg Vital Sign Vital Signs Vital Signs Date Time Temp Pulse Resp B/P (MAP) Pulse Ox O2 Delivery O2 Flow Rate FiO2 05/26/19 07:00 97.8 97 18 131/86 (101) 93 Nasal Cannula 2.0 97.8 Physical Exam PHYSICAL EXAM GENERAL: Propped up in bed, alert, looks comfortable HEENT: Both pupils are round and reacting. No conjunctival lesion, no lesion in the mouth. NECK: Supple, no JVP, no lymphadenopathy. LUNGS: Clear. HEART: S1, S2 regular. ABDOMEN: Obese, soft, nontender : Erickson in place EXTREMITIES: Right lower extremity the foot, ankle and most of the leg up to below knee has mild red, trace warmth and tender, ankle is less tender and less swollen. Tubigrips SKIN: Vitiligo. Tinea between the toes and some cracks in the skin from a dry skin on the heel. Right inguinal tender lymphadenopathy as well as a yeast infection in the skin in to the groin. NEUROLOGIC: Nonfocal RIJ clean Labs Lab Laboratory Tests Test 05/26/19 05:15 White Blood Count 9.7 x10^3/uL (4.0-11.0) Red Blood Count 4.82 x10^6/uL (4.30-5.70) Hemoglobin 14.1 g/dL (13.0-17.5) Hematocrit 41.6 % (39.0-53.0) Mean Corpuscular Volume 86 fL (79-100) Mean Corpuscular Hemoglobin 29 pg (25-35) Mean Corpuscular Hemoglobin Concent 34 g/dL (31-37) Red Cell Distribution Width 13.6 % (11.5-14.5) Platelet Count 174 x10^3/uL (140-400) Neutrophils (%) (Auto) 80 % (31-73) Lymphocytes (%) (Auto) 11 % (24-48) Monocytes (%) (Auto) 8 % (0-9) Eosinophils (%) (Auto) 0 % (0-3) Basophils (%) (Auto) 1 % (0-3) Neutrophils # (Auto) 7.7 x10^3/uL (1.8-7.7) Lymphocytes # (Auto) 1.0 x10^3/uL (1.0-4.8) Monocytes # (Auto) 0.8 x10^3/uL (0.0-1.1) Eosinophils # (Auto) 0.0 x10^3/uL (0.0-0.7) Basophils # (Auto) 0.1 x10^3/uL (0.0-0.2) Sodium Level 139 mmol/L (136-145) Potassium Level 3.9 mmol/L (3.5-5.1) Chloride Level 103 mmol/L (98-107) Carbon Dioxide Level 30 mmol/L (21-32) Anion Gap 6 (6-14) Blood Urea Nitrogen 10 mg/dL (8-26) Creatinine 0.8 mg/dL (0.7-1.3) Estimated GFR (Cockcroft-Gault) 116.0 Glucose Level 98 mg/dL (70-99) Calcium Level 8.2 mg/dL (8.5-10.1) Micro Microbiology 05/22/19 Blood Culture - Preliminary, Resulted NO GROWTH AFTER 1 DAY Objective Assessment Right lower extremity cellulitis - improving. Septic shock with lactic acidosis, improving, off pressors - better Leukocytosis - better Acute kidney injury - better Fever - better - overall. History of hypertension. Super morbid obesity, going for gastric bypass. Plan Plan of Care Continue Zosyn and zyvox/po Fluconazole taper to po in next day or so Monitor R ankle area some better Tubigrip and outline erythema One time dose vancomycin given on May 22 F/u cultures D/w nursing D/w family JENY ESQUIVEL MD May 26, 2019 10:55
[2019-05-26 11:00] VITALS: BP 134/92
--- NOTE | 2019-05-26 11:44 | PDOC ---
PROGRESS NOTES Chief Complaint Chief Complaint IMPRESSION Bilateral LE cellulitis with hypotension - skin intact Septic shock HTN, NORMALIZED SInus tachycardia sec to sepsis EXTREME MORBID OBESITY History of Present Illness History of Present Illness off levophed SBP 150s LEg redeness looks better! He also ambulated BC prelim neg PLAN: NON tele bed pappas out voiding freely NS off Eat, ambulatye HOme once on PO abx could be in 1-2 days AMbulate - dc heparin SQ ok to cont his home appetite suppressant pill 28 MIN PT EXAM, CHART REVIEW, > 50% OF TIME SPENT WITH EXAM, CHART REVIEW, PT CARE COORDINATION Vitals Vitals Vital Signs Date Time Temp Pulse Resp B/P (MAP) Pulse Ox O2 Delivery O2 Flow Rate FiO2 05/26/19 08:00 Nasal Cannula 2.0 05/26/19 07:00 97.8 97 18 131/86 (101) 93 97.8 Physical Exam Physical Exam GENERAL: Propped up in bed, alert, looks comfortable HEENT: Both pupils are round and reacting. No conjunctival lesion, no lesion in the mouth. NECK: Supple, no JVP, no lymphadenopathy. LUNGS: Clear. HEART: S1, S2 regular. ABDOMEN: Obese, soft, nontender : Pappas in place EXTREMITIES: Right lower extremity the foot, ankle and most of the leg up to below knee has mild red, trace warmth and tender, ankle is less tender and less swollen. Tubigrips SKIN: Vitiligo. Tinea between the toes and some cracks in the skin from a dry s kin on the heel. Right inguinal tender lymphadenopathy as well as a yeast infection in the skin in to the groin. NEUROLOGIC: Nonfocal RIJ clean General: Alert, Oriented X3, Cooperative, No acute distress Heart: Normal S1, Normal S2, Other (sinus tachy) Lungs: Clear Abdomen: Normal bowel sounds, Soft, No hepatosplenomegaly, No masses, Other (diffuse mild tenderness) Extremities: No clubbing, No cyanosis, Other (RLE tender, swollen 3+) Skin: No rashes, Other (RLE rash as below) Labs LABS Laboratory Tests Test 05/26/19 05:15 White Blood Count 9.7 x10^3/uL (4.0-11.0) Red Blood Count 4.82 x10^6/uL (4.30-5.70) Hemoglobin 14.1 g/dL (13.0-17.5) Hematocrit 41.6 % (39.0-53.0) Mean Corpuscular Volume 86 fL (79-100) Mean Corpuscular Hemoglobin 29 pg (25-35) Mean Corpuscular Hemoglobin Concent 34 g/dL (31-37) Red Cell Distribution Width 13.6 % (11.5-14.5) Platelet Count 174 x10^3/uL (140-400) Neutrophils (%) (Auto) 80 % (31-73) Lymphocytes (%) (Auto) 11 % (24-48) Monocytes (%) (Auto) 8 % (0-9) Eosinophils (%) (Auto) 0 % (0-3) Basophils (%) (Auto) 1 % (0-3) Neutrophils # (Auto) 7.7 x10^3/uL (1.8-7.7) Lymphocytes # (Auto) 1.0 x10^3/uL (1.0-4.8) Monocytes # (Auto) 0.8 x10^3/uL (0.0-1.1) Eosinophils # (Auto) 0.0 x10^3/uL (0.0-0.7) Basophils # (Auto) 0.1 x10^3/uL (0.0-0.2) Sodium Level 139 mmol/L (136-145) Potassium Level 3.9 mmol/L (3.5-5.1) Chloride Level 103 mmol/L (98-107) Carbon Dioxide Level 30 mmol/L (21-32) Anion Gap 6 (6-14) Blood Urea Nitrogen 10 mg/dL (8-26) Creatinine 0.8 mg/dL (0.7-1.3) Estimated GFR (Cockcroft-Gault) 116.0 Glucose Level 98 mg/dL (70-99) Calcium Level 8.2 mg/dL (8.5-10.1) Assessment and Plan Assessmemt and Plan Problems Medical Problems: (1) Cellulitis Status: Acute (2) Sepsis Status: Acute Comment Review of Relevant I have reviewed the following items miracle (where applicable) has been applied. Labs Laboratory Tests Test 05/26/19 05:15 White Blood Count 9.7 x10^3/uL (4.0-11.0) Red Blood Count 4.82 x10^6/uL (4.30-5.70) Hemoglobin 14.1 g/dL (13.0-17.5) Hematocrit 41.6 % (39.0-53.0) Mean Corpuscular Volume 86 fL (79-100) Mean Corpuscular Hemoglobin 29 pg (25-35) Mean Corpuscular Hemoglobin Concent 34 g/dL (31-37) Red Cell Distribution Width 13.6 % (11.5-14.5) Platelet Count 174 x10^3/uL (140-400) Neutrophils (%) (Auto) 80 % (31-73) Lymphocytes (%) (Auto) 11 % (24-48) Monocytes (%) (Auto) 8 % (0-9) Eosinophils (%) (Auto) 0 % (0-3) Basophils (%) (Auto) 1 % (0-3) Neutrophils # (Auto) 7.7 x10^3/uL (1.8-7.7) Lymphocytes # (Auto) 1.0 x10^3/uL (1.0-4.8) Monocytes # (Auto) 0.8 x10^3/uL (0.0-1.1) Eosinophils # (Auto) 0.0 x10^3/uL (0.0-0.7) Basophils # (Auto) 0.1 x10^3/uL (0.0-0.2) Sodium Level 139 mmol/L (136-145) Potassium Level 3.9 mmol/L (3.5-5.1) Chloride Level 103 mmol/L (98-107) Carbon Dioxide Level 30 mmol/L (21-32) Anion Gap 6 (6-14) Blood Urea Nitrogen 10 mg/dL (8-26) Creatinine 0.8 mg/dL (0.7-1.3) Estimated GFR (Cockcroft-Gault) 116.0 Glucose Level 98 mg/dL (70-99) Calcium Level 8.2 mg/dL (8.5-10.1) Laboratory Tests Test 05/26/19 05:15 White Blood Count 9.7 x10^3/uL (4.0-11.0) Red Blood Count 4.82 x10^6/uL (4.30-5.70) Hemoglobin 14.1 g/dL (13.0-17.5) Hematocrit 41.6 % (39.0-53.0) Mean Corpuscular Volume 86 fL (79-100) Mean Corpuscular Hemoglobin 29 pg (25-35) Mean Corpuscular Hemoglobin Concent 34 g/dL (31-37) Red Cell Distribution Width 13.6 % (11.5-14.5) Platelet Count 174 x10^3/uL (140-400) Neutrophils (%) (Auto) 80 % (31-73) Lymphocytes (%) (Auto) 11 % (24-48) Monocytes (%) (Auto) 8 % (0-9) Eosinophils (%) (Auto) 0 % (0-3) Basophils (%) (Auto) 1 % (0-3) Neutrophils # (Auto) 7.7 x10^3/uL (1.8-7.7) Lymphocytes # (Auto) 1.0 x10^3/uL (1.0-4.8) Monocytes # (Auto) 0.8 x10^3/uL (0.0-1.1) Eosinophils # (Auto) 0.0 x10^3/uL (0.0-0.7) Basophils # (Auto) 0.1 x10^3/uL (0.0-0.2) Sodium Level 139 mmol/L (136-145) Potassium Level 3.9 mmol/L (3.5-5.1) Chloride Level 103 mmol/L (98-107) Carbon Dioxide Level 30 mmol/L (21-32) Anion Gap 6 (6-14) Blood Urea Nitrogen 10 mg/dL (8-26) Creatinine 0.8 mg/dL (0.7-1.3) Estimated GFR (Cockcroft-Gault) 116.0 Glucose Level 98 mg/dL (70-99) Calcium Level 8.2 mg/dL (8.5-10.1) Microbiology 05/22/19 Blood Culture - Preliminary, Resulted NO GROWTH AFTER 3 DAYS Medications Current Medications Sodium Chloride 1,000 ml @ 2,250 mls/hr Q27M IV Last administered on 05/22/19at 16:17; Start 05/22/19 at 12:33; Stop 05/22/19 at 13:33; Status DC Vancomycin HCl (Vanco Per Pharmacy) 1 each PRN DAILY PRN MC SEE COMMENTS; Start 05/22/19 at 12:45; Stop 05/22/19 at 15:19; Status DC Vancomycin HCl 2 gm/Sodium Chloride 500 ml @ 250 mls/hr 1X ONCE IV Last administered on 05/22/19at 13:34; Start 05/22/19 at 13:00; Stop 05/22/19 at 14:59; Status DC Fentanyl Citrate (Fentanyl 2ml Vial) 50 mcg 1X ONCE IVP Last administered on 05/22/19at 13:10; Start 05/22/19 at 13:00; Stop 05/22/19 at 13:01; Status DC Ondansetron HCl (Zofran) 4 mg 1X ONCE IV Last administered on 05/22/19at 13:09; Start 05/22/19 at 13:00; Stop 05/22/19 at 13:01; Status DC Acetaminophen (Tylenol) 1,000 mg 1X ONCE PO Last administered on 05/22/19at 13:08; Start 05/22/19 at 13:00; Stop 05/22/19 at 13:01; Status DC Piperacillin Sod/ Tazobactam Sod 3.375 gm/Sodium Chloride 50 ml @ 100 mls/hr 1X ONCE IV Last administered on 05/22/19at 14:15; Start 05/22/19 at 13:45; Stop 05/22/19 at 14:14; Status DC Ondansetron HCl (Zofran) 4 mg PRN Q8HRS PRN IV NAUSEA/VOMITING Last administered on 05/22/19at 17:10; Start 05/22/19 at 13:45; Stop 05/23/19 at 08:14; Status DC Fentanyl Citrate (Fentanyl 2ml Vial) 50 mcg PRN Q1HR PRN IV PAIN Last administered on 05/22/19at 14:41; Start 05/22/19 at 13:45; Stop 05/23/19 at 08:14; Status DC Norepinephrine Bitartrate 250 ml @ 42.439 mls/ hr 1X ONCE IV Last administered on 05/22/19at 16:11; Start 05/22/19 at 14:15; Stop 05/22/19 at 20:08; Status DC Piperacillin Sod/ Tazobactam Sod 3.375 gm/Sodium Chloride 50 ml @ 100 mls/hr Q6HRS IV Last administered on 05/26/19at 05:30; Start 05/22/19 at 18:00 Micafungin Sodium 100 mg/Dextrose 100 ml @ 100 mls/hr Q24H IV Last administered on 05/24/19at 15:30; Start 05/22/19 at 16:00; Stop 05/25/19 at 07:31; Status DC Influenza Virus Vaccine Quadrival (Afluria Quad 2019-20 (3yr Up) Syringe) 0.5 ml ONCE ONCE VAX IM Last administered on 05/23/19at 09:45; Start 05/23/19 at 09:00; Stop 05/23/19 at 09:01; Status DC Albumin Human 500 ml @ 125 mls/hr 1X ONCE IV Last administered on 05/22/19at 16:15; Start 05/22/19 at 16:00; Stop 05/22/19 at 19:59; Status DC Tramadol HCl (Ultram) 50 mg PRN Q6HRS PRN PO MODERATE PAIN; Start 05/22/19 at 16:00 Hydromorphone HCl (Dilaudid) 0.4 mg PRN Q4HRS PRN IVP SEVERE PAIN Last administered on 05/22/19at 22:07; Start 05/22/19 at 16:00 Heparin Sodium (Porcine) (Heparin Sodium) 5,000 unit Q8HRS SQ Last administered on 05/24/19at 13:04; Start 05/22/19 at 22:00; Stop 05/24/19 at 13:17; Status DC Lidocaine HCl (Xylocaine-Mpf 1% 2ml Vial) 2 ml STK-MED ONCE .ROUTE ; Start 05/22/19 at 16:47; Stop 05/22/19 at 16:47; Status DC Lidocaine HCl (Lidocaine HCl 2% Abboject) 100 mg STK-MED ONCE .ROUTE ; Start 05/22/19 at 16:47; Stop 05/22/19 at 16:47; Status DC Lidocaine HCl (Xylocaine 1% Pf 30ml Vial) 30 ml STK-MED ONCE .ROUTE ; Start 05/22/19 at 16:48; Stop 05/22/19 at 16:48; Status DC Sodium Chloride 1,000 ml @ 150 mls/hr Q6H40M IV Last administered on 05/24/19at 06:21; Start 05/22/19 at 18:15; Stop 05/24/19 at 13:17; Status DC Albumin Human 500 ml @ 125 mls/hr PRN Q24HRS PRN IV HYPOTENSION; Start 05/22/19 at 18:15; Stop 05/23/19 at 09:26; Status DC Norepinephrine Bitartrate 250 ml @ 42.524 mls/ hr CONT PRN IV SEE I/O RECORD Last administered on 05/22/19at 23:58; Start 05/22/19 at 21:00; Stop 05/24/19 at 13:17; Status DC Acetaminophen (Tylenol) 325 mg STK-MED ONCE PO ; Start 05/23/19 at 01:04; Stop 05/23/19 at 01:04; Status DC Acetaminophen (Tylenol) 650 mg PRN Q6HRS PRN PO FEVER; Start 05/23/19 at 05:30 Acetaminophen (Tylenol) 325 mg PRN Q6HRS PRN PO MILD PAIN / TEMP; Start 05/23/19 at 05:30 Lactobacillus Rhamnosus (Culturelle) 1 cap BID PO Last administered on 05/26/19at 09:58; Start 05/23/19 at 09:00 Fentanyl Citrate (Fentanyl 2ml Vial) 50 mcg PRN Q2HR PRN IVP MODERATE PAIN; Start 05/23/19 at 08:15 Ondansetron HCl (Zofran) 4 mg PRN Q6HRS PRN IVP NAUSEA/VOMITING Last administered on 05/25/19at 09:11; Start 05/23/19 at 08:15 Oxycodone/ Acetaminophen (Percocet 5/325) 1 tab PRN Q4HRS PRN PO SEVERE PAIN Last administered on 05/25/19at 20:48; Start 05/23/19 at 08:15 Linezolid (Zyvox) 600 mg BID PO Last administered on 05/26/19at 09:58; Start 05/23/19 at 11:30 Fluconazole (Diflucan) 200 mg DAILY PO Last administered on 05/26/19at 09:58; Start 05/25/19 at 09:00 Vitals/I & O Vital Sign - Last 24 Hours 05/25/19 05/25/19 05/25/19 05/25/19 15:00 19:45 19:50 20:48 Temp 98.9 100.4 98.9 100.4 Pulse 96 58 Resp 18 18 B/P (MAP) 126/72 (90) 147/93 (111) Pulse Ox 97 93 97 O2 Delivery Room Air Nasal Cannula Room Air Nasal Cannula O2 Flow Rate 2.0 2.0 05/25/19 05/25/19 05/26/19 05/26/19 21:45 23:00 03:00 07:00 Temp 98.3 98.0 97.8 98.3 98.0 97.8 Pulse 86 107 97 Resp 18 B/P (MAP) 174/99 (124) 146/89 (108) 131/86 (101) Pulse Ox 97 94 95 93 O2 Delivery Nasal Cannula Nasal Cannula Nasal Cannula Nasal Cannula O2 Flow Rate 2.0 2.0 2.0 2.0 05/26/19 08:00 O2 Delivery Nasal Cannula O2 Flow Rate 2.0 Intake and Output 05/25/19 05/25/19 05/26/19 15:00 23:00 07:00 Intake Total 1050 ml 118 ml 200 ml Output Total 600 ml 400 ml Balance 450 ml -282 ml 200 ml ANNA FENG MD May 26, 2019 11:43
[2019-05-26 15:00] VITALS: BP 148/95
--- NOTE | 2019-05-26 15:46 | NUR ---
SW following for discharge planning. Chart reviewed, discussed with RN. Pt is a transfer from ICU. Currently on 2L o2 which pt does not wear at home. ID following, zosyn and zyvox currently. Per RN, pt believes he has sleep apnea but could not afford the CPAP, pt is not using a CPAP here. SW will continue to follow for any discharge planning needs.
[2019-05-26 19:00] VITALS: BP 142/83
[2019-05-26] MEDS: oxyCODONE/APAP 5/325 1 TAB TABLET PO PRN (21:59)
[2019-05-26 23:00] VITALS: BP 174/96
[2019-05-27] MEDS: PIPERACILLIN/TAZOBACTAM 3.375 GM in IV NORMAL SALINE 50ML 50 ML IV SCH ×2 (00:19→05:33)
[2019-05-27 03:00] VITALS: BP 146/83
[2019-05-27 07:00] VITALS: BP 183/122
[2019-05-27] MEDS: LACTOBACILLUS RHAMNOSUS GG 1 CAPSULE. PO SCH ×2 (08:30→22:09)
[2019-05-27] MEDS: FLUCONAZOLE 100 MG TABLET. PO SCH (08:30)
--- NOTE | 2019-05-27 08:55 | PDOC ---
Infectious Disease Note Subjective Subjective Right leg pain some better yet - less pain with ambulation + BM Slept better last night + Appetite and eating Vital Sign Vital Signs Vital Signs Date Time Temp Pulse Resp B/P (MAP) Pulse Ox O2 Delivery O2 Flow Rate FiO2 05/27/19 08:30 20 91 Nasal Cannula 2.0 05/27/19 07:00 97.9 89 183/122 (142) 97.9 Physical Exam PHYSICAL EXAM GENERAL: Propped up in a chair, alert, looks comfortable HEENT: Both pupils are round and reacting. No conjunctival lesion, no lesion in the mouth. NECK: Supple, no JVP, no lymphadenopathy. LUNGS: Clear. HEART: S1, S2 regular. ABDOMEN: Obese, soft, nontender : Erickson in place EXTREMITIES: Right lower extremity the foot, ankle and most of the leg up to below knee has mild red, no gross warmth and min tender, ankle is less tender and less swollen. Tubigrips SKIN: Vitiligo. Tinea between the toes and some cracks in the skin from a dry skin on the heel. Right inguinal tender lymphadenopathy as well as a yeast infection in the skin in to the groin. NEUROLOGIC: Nonfocal [facility] clean Labs Micro Microbiology 05/22/19 Blood Culture - Preliminary, Resulted NO GROWTH AFTER 1 DAY Objective Assessment Right lower extremity cellulitis - improving. Septic shock with lactic acidosis, improving, off pressors - better Leukocytosis - better Acute kidney injury - better Fever - better - overall. History of hypertension. Super morbid obesity, going for gastric bypass. Plan Plan of Care Discontinue Zosyn begin Augmentin today Cont zyvox/po Fluconazole Tubigrip and outline erythema One time dose vancomycin given on May 22 D/w nursing D/w family JENY ESQUIVEL MD May 27, 2019 08:55
[2019-05-27] MEDS ORDERED: LISI1TAB20 PO (09:10)
[2019-05-27] MEDS ORDERED: PHEN37.53 PO (09:11)
[2019-05-27] MEDS: AMOXICILLIN/K CLAV 875/125MG TABLET. PO SCH ×2 (10:31→22:09)
[2019-05-27] MEDS: hydroCHLOROthiazide 25 MG TABLET PO SCH (10:32)
[2019-05-27] MEDS: LINEZOLID 600 MG TABLET PO SCH ×2 (10:32→22:09)
[2019-05-27] MEDS: oxyCODONE/APAP 5/325 1 TAB TABLET PO PRN ×2 (10:38→22:10)
[2019-05-27 10:40] VITALS: BP 158/97
[2019-05-27] MEDS: LISINOPRIL 20 MG TABLET PO SCH (10:40)
--- NOTE | 2019-05-27 12:48 | PDOC ---
PROGRESS NOTES Chief Complaint Chief Complaint IMPRESSION Bilateral LE cellulitis with hypotension - skin intact Septic shock HTN, NORMALIZED SInus tachycardia sec to sepsis EXTREME MORBID OBESITY hypoxic resp failure Augmentin today Cont zyvox/po Fluconazole Tubigrip and outline erythema cxr today History of Present Illness History of Present Illness off levophed SBP 150s LEg redeness looks better! He also ambulated BC prelim neg PLAN: NON tele bed pappas out voiding freely NS off Eat, ambulatye AMbulate - dc heparin SQ Augmentin today Cont zyvox/po Fluconazole Tubigrip and outline erythema 28 MIN PT EXAM, CHART REVIEW, > 50% OF TIME SPENT WITH EXAM, CHART REVIEW, PT CARE COORDINATION Vitals Vitals Vital Signs Date Time Temp Pulse Resp B/P (MAP) Pulse Ox O2 Delivery O2 Flow Rate FiO2 05/27/19 10:40 93 158/97 05/27/19 10:40 98.2 22 95 Nasal Cannula 2.0 98.2 Physical Exam Physical Exam GENERAL: Propped up in a chair, alert, looks comfortable HEENT: Both pupils are round and reacting. No conjunctival lesion, no lesion in the mouth. NECK: Supple, no JVP, no lymphadenopathy. LUNGS: Clear. HEART: S1, S2 regular. ABDOMEN: Obese, soft, nontender : Pappas in place EXTREMITIES: Right lower extremity the foot, ankle and most of the leg up to below knee has mild red, no gross warmth and min tender, ankle is less tender and less swollen. Tubigrips SKIN: Vitiligo. Tinea between the toes and some cracks in the skin from a dry sk in on the heel. Right inguinal tender lymphadenopathy as well as a yeast infection in the skin in to the groin. NEUROLOGIC: Nonfocal [facility] clean General: Alert, Oriented X3, Cooperative, No acute distress Heart: Regular rate, Normal S1, Normal S2, Other (sinus tachy) Lungs: Clear Abdomen: Normal bowel sounds, Soft, No hepatosplenomegaly, No masses, Other (diffuse mild tenderness) Extremities: No clubbing, No cyanosis, Other (RLE tender, swollen 3+) Skin: No rashes, Other (RLE rash as below) Labs LABS Study: CHEST AP ONLY Indication: Central line placement Comparison: 05/22/2019 at 1256 hours. Findings: Interval placement of a right IJ central venous catheter with the tip terminating in the superior vena cava. The heart is enlarged likely accentuated by projection. The central vascular structures are prominent. Increased lung markings bilaterally. No pneumothorax. Impression: 1. Right IJ with the tip in the superior vena cava. 2. Redemonstrated prominence of the cardiomediastinal silhouette that is likely accentuated by low lung volumes. The central vascular structures are prominent as well. Increased lung markings could represent a degree of pulmonary edema however given patient body habitus, a component of this appearance could also be related to extensive overlying soft tissues. Electronically signed by: JOCELYNE WATERS MD (05/22/2019 5:23 PM) [facility] DICTATED and SIGNED BY: JOCELYNE WATERS MD DATE: 05/22/19 172 Assessment and Plan Assessmemt and Plan Problems Medical Problems: (1) Cellulitis Status: Acute (2) Sepsis Status: Acute Comment Review of Relevant I have reviewed the following items miracle (where applicable) has been applied. Labs Laboratory Tests Test 05/26/19 05:15 White Blood Count 9.7 x10^3/uL (4.0-11.0) Red Blood Count 4.82 x10^6/uL (4.30-5.70) Hemoglobin 14.1 g/dL (13.0-17.5) Hematocrit 41.6 % (39.0-53.0) Mean Corpuscular Volume 86 fL (79-100) Mean Corpuscular Hemoglobin 29 pg (25-35) Mean Corpuscular Hemoglobin Concent 34 g/dL (31-37) Red Cell Distribution Width 13.6 % (11.5-14.5) Platelet Count 174 x10^3/uL (140-400) Neutrophils (%) (Auto) 80 % (31-73) Lymphocytes (%) (Auto) 11 % (24-48) Monocytes (%) (Auto) 8 % (0-9) Eosinophils (%) (Auto) 0 % (0-3) Basophils (%) (Auto) 1 % (0-3) Neutrophils # (Auto) 7.7 x10^3/uL (1.8-7.7) Lymphocytes # (Auto) 1.0 x10^3/uL (1.0-4.8) Monocytes # (Auto) 0.8 x10^3/uL (0.0-1.1) Eosinophils # (Auto) 0.0 x10^3/uL (0.0-0.7) Basophils # (Auto) 0.1 x10^3/uL (0.0-0.2) Sodium Level 139 mmol/L (136-145) Potassium Level 3.9 mmol/L (3.5-5.1) Chloride Level 103 mmol/L (98-107) Carbon Dioxide Level 30 mmol/L (21-32) Anion Gap 6 (6-14) Blood Urea Nitrogen 10 mg/dL (8-26) Creatinine 0.8 mg/dL (0.7-1.3) Estimated GFR (Cockcroft-Gault) 116.0 Glucose Level 98 mg/dL (70-99) Calcium Level 8.2 mg/dL (8.5-10.1) Microbiology 05/22/19 Blood Culture - Preliminary, Resulted NO GROWTH AFTER 4 DAYS Medications Current Medications Sodium Chloride 1,000 ml @ 2,250 mls/hr Q27M IV Last administered on 05/22/19at 16:17; Start 05/22/19 at 12:33; Stop 05/22/19 at 13:33; Status DC Vancomycin HCl (Vanco Per Pharmacy) 1 each PRN DAILY PRN MC SEE COMMENTS; Start 05/22/19 at 12:45; Stop 05/22/19 at 15:19; Status DC Vancomycin HCl 2 gm/Sodium Chloride 500 ml @ 250 mls/hr 1X ONCE IV Last administered on 05/22/19at 13:34; Start 05/22/19 at 13:00; Stop 05/22/19 at 14:59; Status DC Fentanyl Citrate (Fentanyl 2ml Vial) 50 mcg 1X ONCE IVP Last administered on 05/22/19at 13:10; Start 05/22/19 at 13:00; Stop 05/22/19 at 13:01; Status DC Ondansetron HCl (Zofran) 4 mg 1X ONCE IV Last administered on 05/22/19at 13:09; Start 05/22/19 at 13:00; Stop 05/22/19 at 13:01; Status DC Acetaminophen (Tylenol) 1,000 mg 1X ONCE PO Last administered on 05/22/19at 13:08; Start 05/22/19 at 13:00; Stop 05/22/19 at 13:01; Status DC Piperacillin Sod/ Tazobactam Sod 3.375 gm/Sodium Chloride 50 ml @ 100 mls/hr 1X ONCE IV Last administered on 05/22/19at 14:15; Start 05/22/19 at 13:45; Stop 05/22/19 at 14:14; Status DC Ondansetron HCl (Zofran) 4 mg PRN Q8HRS PRN IV NAUSEA/VOMITING Last administered on 05/22/19at 17:10; Start 05/22/19 at 13:45; Stop 05/23/19 at 08:14; Status DC Fentanyl Citrate (Fentanyl 2ml Vial) 50 mcg PRN Q1HR PRN IV PAIN Last administered on 05/22/19at 14:41; Start 05/22/19 at 13:45; Stop 05/23/19 at 08:14; Status DC Norepinephrine Bitartrate 250 ml @ 42.439 mls/ hr 1X ONCE IV Last administered on 05/22/19at 16:11; Start 05/22/19 at 14:15; Stop 05/22/19 at 20:08; Status DC Piperacillin Sod/ Tazobactam Sod 3.375 gm/Sodium Chloride 50 ml @ 100 mls/hr Q6HRS IV Last administered on 05/27/19at 05:33; Start 05/22/19 at 18:00; Stop 05/27/19 at 09:39; Status DC Micafungin Sodium 100 mg/Dextrose 100 ml @ 100 mls/hr Q24H IV Last administered on 05/24/19at 15:30; Start 05/22/19 at 16:00; Stop 05/25/19 at 07:31; Status DC Influenza Virus Vaccine Quadrival (Afluria Quad 2019-20 (3yr Up) Syringe) 0.5 ml ONCE ONCE VAX IM Last administered on 05/23/19at 09:45; Start 05/23/19 at 09:00; Stop 05/23/19 at 09:01; Status DC Albumin Human 500 ml @ 125 mls/hr 1X ONCE IV Last administered on 05/22/19at 16:15; Start 05/22/19 at 16:00; Stop 05/22/19 at 19:59; Status DC Tramadol HCl (Ultram) 50 mg PRN Q6HRS PRN PO MODERATE PAIN Last administered on 05/27/19at 08:30; Start 05/22/19 at 16:00 Hydromorphone HCl (Dilaudid) 0.4 mg PRN Q4HRS PRN IVP SEVERE PAIN Last administered on 05/22/19at 22:07; Start 05/22/19 at 16:00 Heparin Sodium (Porcine) (Heparin Sodium) 5,000 unit Q8HRS SQ Last administered on 05/24/19at 13:04; Start 05/22/19 at 22:00; Stop 05/24/19 at 13:17; Status DC Lidocaine HCl (Xylocaine-Mpf 1% 2ml Vial) 2 ml STK-MED ONCE .ROUTE ; Start 05/22/19 at 16:47; Stop 05/22/19 at 16:47; Status DC Lidocaine HCl (Lidocaine HCl 2% Abboject) 100 mg STK-MED ONCE .ROUTE ; Start 05/22/19 at 16:47; Stop 05/22/19 at 16:47; Status DC Lidocaine HCl (Xylocaine 1% Pf 30ml Vial) 30 ml STK-MED ONCE .ROUTE ; Start 05/22/19 at 16:48; Stop 05/22/19 at 16:48; Status DC Sodium Chloride 1,000 ml @ 150 mls/hr Q6H40M IV Last administered on 05/24/19at 06:21; Start 05/22/19 at 18:15; Stop 05/24/19 at 13:17; Status DC Albumin Human 500 ml @ 125 mls/hr PRN Q24HRS PRN IV HYPOTENSION; Start 05/22/19 at 18:15; Stop 05/23/19 at 09:26; Status DC Norepinephrine Bitartrate 250 ml @ 42.524 mls/ hr CONT PRN IV SEE I/O RECORD Last administered on 05/22/19at 23:58; Start 05/22/19 at 21:00; Stop 05/24/19 at 13:17; Status DC Acetaminophen (Tylenol) 325 mg STK-MED ONCE PO ; Start 05/23/19 at 01:04; Stop 05/23/19 at 01:04; Status DC Acetaminophen (Tylenol) 650 mg PRN Q6HRS PRN PO FEVER; Start 05/23/19 at 05:30 Acetaminophen (Tylenol) 325 mg PRN Q6HRS PRN PO MILD PAIN / TEMP; Start 05/23/19 at 05:30 Lactobacillus Rhamnosus (Culturelle) 1 cap BID PO Last administered on 05/27/19 08:30; Start 05/23/19 at 09:00 Fentanyl Citrate (Fentanyl 2ml Vial) 50 mcg PRN Q2HR PRN IVP MODERATE PAIN; Start 05/23/19 at 08:15 Ondansetron HCl (Zofran) 4 mg PRN Q6HRS PRN IVP NAUSEA/VOMITING 1ST CHOICE Last administered on 05/25/19 09:11; Start 05/23/19 at 08:15 Oxycodone/ Acetaminophen (Percocet 5/325) 1 tab PRN Q4HRS PRN PO SEVERE PAIN Last administered on 05/27/19at 10:38; Start 05/23/19 at 08:15 Linezolid (Zyvox) 600 mg BID PO Last administered on 05/27/19 10:32; Start 05/23/19 at 11:30 Fluconazole (Diflucan) 200 mg DAILY PO Last administered on 05/27/19 08:30; Start 05/25/19 at 09:00 Lisinopril (Prinivil) 20 mg DAILY PO Last administered on 05/27/19 10:40; Start 05/27/19 at 10:00 Hydrochlorothiazide (Hydrodiuril) 25 mg DAILY PO Last administered on 05/27/19at 10:32; Start 05/27/19 at 10:00 Amoxicillin/ Clavulanate Potassium (Augmentin 875/ 125mg) 1 tab BID PO Last administered on 05/27/19at 10:31; Start 05/27/19 at 09:45 Active Scripts Active Reported Phentermine Hcl 37.5 Mg Capsule 1 Cap PO [id number] Lisinopril-Hctz 20-25 Mg Tab (Lisinopril/Hydrochlorothiazide) 1 Each Tablet 1 Tab PO DAILY Vitals/I & O Vital Sign - Last 24 Hours 05/26/19 05/26/19 05/26/19 05/26/19 15:00 19:00 20:00 21:59 Temp 99.0 97.7 99.0 97.7 Pulse 100 102 Resp 18 22 B/P (MAP) 148/95 (112) 142/83 (102) Pulse Ox 91 96 O2 Delivery Nasal Cannula Room Air Nasal Cannula Nasal Cannula O2 Flow Rate 2.0 2.0 2.0 05/26/19 05/26/19 05/27/19 05/27/19 23:00 23:00 03:00 07:00 Temp 99.0 98.4 97.9 99.0 98.4 97.9 Pulse 97 87 89 Resp 22 24 16 B/P (MAP) 174/96 (122) 146/83 (104) 183/122 (142) Pulse Ox 90 100 91 O2 Delivery Nasal Cannula Room Air Room Air Room Air O2 Flow Rate 2.0 05/27/19 05/27/19 05/27/19 05/27/19 08:00 08:30 09:30 10:38 Resp 20 22 22 Pulse Ox 91 95 92 O2 Delivery Nasal Cannula Nasal Cannula Nasal Cannula Nasal Cannula O2 Flow Rate 2.0 2.0 2.0 2.0 05/27/19 05/27/19 10:40 10:40 Temp 98.2 98.2 Pulse 93 93 Resp 22 B/P (MAP) 158/97 (117) 158/97 Pulse Ox 95 O2 Delivery Nasal Cannula O2 Flow Rate 2.0 Intake and Output 05/26/19 05/26/19 05/27/19 15:00 23:00 07:00 Intake Total 240 ml 100 ml Output Total 480 ml Balance -240 ml 100 ml ANNA FENG MD May 27, 2019 12:48
[2019-05-27 15:00] VITALS: BP 179/104
--- NOTE | 2019-05-27 15:39 | NUR ---
NELI following. Discussed with RN. RN advised pt's sister has a second CPAP machine and could pt use this, and would an oxygen company service the CPAP. NELI contacted [facility] to determine if this is possible. Robert advised pt could use his sister's second machine, however [facility] would not be able to service it. Robert advised pt to contact the place he had his sleep study at and have them fax the orders and testing to [facility] and [facility] (ph: [phone], fax: [phone]) can work out what the cost would be for the pt. NELI notified RN.
--- NOTE | 2019-05-27 16:13 | RAD ---
EXAM: Chest, 2 views. HISTORY: Hypoxia. COMPARISON: 05/22/2019. FINDINGS: 2 views chest are obtained. There is no infiltrate, pleural effusion or pneumothorax. There is a stable cardiac silhouette. There is a right internal jugular catheter with the tip in the superior vena cava or superior cavoatrial junction. There is stable mild elevation of the right hemidiaphragm. IMPRESSION: No acute pulmonary finding. Electronically signed by: Breann Albert MD (05/27/2019 4:10 PM) [place] [id number]
[2019-05-27 19:00] VITALS: BP 169/99
[2019-05-27 23:00] VITALS: BP 162/98
[2019-05-27] MEDS: ONDANSETRON PF 4 MG/2 ML VIAL. IVP PRN (23:15)
[2019-05-28 03:00] VITALS: BP 130/78
[2019-05-28 07:00] VITALS: BP 186/107
[2019-05-28] MEDS: oxyCODONE/APAP 5/325 1 TAB TABLET PO PRN (08:39)
[2019-05-28] MEDS: FLUCONAZOLE 100 MG TABLET. PO SCH (08:40)
[2019-05-28] MEDS: LACTOBACILLUS RHAMNOSUS GG 1 CAPSULE. PO SCH (08:40)
[2019-05-28] MEDS: LINEZOLID 600 MG TABLET PO SCH (08:40)
[2019-05-28] MEDS: hydroCHLOROthiazide 25 MG TABLET PO SCH (08:40)
[2019-05-28] MEDS: LISINOPRIL 20 MG TABLET PO SCH (08:40)
[2019-05-28] MEDS: AMOXICILLIN/K CLAV 875/125MG TABLET. PO SCH (08:40)
--- NOTE | 2019-05-28 10:59 | PDOC ---
Infectious Disease Note Subjective Subjective Right leg pain some better yet - less pain with ambulation + BM Slept better last night + Appetite and eating Vital Sign Vital Signs Vital Signs Date Time Temp Pulse Resp B/P (MAP) Pulse Ox O2 Delivery O2 Flow Rate FiO2 05/28/19 08:41 Nasal Cannula 2.0 05/28/19 08:40 88 186/107 05/28/19 07:00 98.3 20 96 98.3 Physical Exam PHYSICAL EXAM GENERAL: Propped up in a chair, alert, looks comfortable HEENT: Both pupils are round and reacting. No conjunctival lesion, no lesion in the mouth. NECK: Supple, no JVP, no lymphadenopathy. LUNGS: Clear. HEART: S1, S2 regular. ABDOMEN: Obese, soft, nontender : Erickson in place EXTREMITIES: Right lower extremity the foot, ankle and most of the leg up to below knee has mild red, no gross warmth and min tender, ankle is less tender and less swollen. Tubigrips SKIN: Vitiligo. Tinea between the toes and some cracks in the skin from a dry skin on the heel. Right inguinal tender lymphadenopathy as well as a yeast infection in the skin in to the groin. NEUROLOGIC: Nonfocal [facility] clean Labs Micro Microbiology 05/22/19 Blood Culture - Preliminary, Resulted NO GROWTH AFTER 1 DAY Objective Assessment Right lower extremity cellulitis - improving. Septic shock with lactic acidosis, improving, off pressors - better Leukocytosis - better Acute kidney injury - better Fever - better - overall. History of hypertension. Super morbid obesity, going for gastric bypass. Plan Plan of Care Cont Augmentin for 7 more days Cont zyvox though 05/29 Cont po Fluconazole for 7 more days Ok to d/c from ID standpoint D/w family JENY ESQUIVEL MD May 28, 2019 10:59
[2019-05-28 11:00] VITALS: BP 147/86
--- NOTE | 2019-05-28 11:30 | PDOC ---
[facility] PROGRESS NOTE Chief Complaint Chief Complaint IMPRESSION Bilateral LE cellulitis with hypotension - skin intact Septic shock HTN, NORMALIZED SInus tachycardia sec to sepsis EXTREME MORBID OBESITY hypoxic resp failure Augmentin today Cont zyvox/po Fluconazole Tubigrip and outline erythema cxr today History of Present Illness History of Present Illness 05/28/19 Pt seen and examined by me MCCLAIN RN Chart reviewed Vitals/I&O Vitals/I&O: Vital Signs Date Time Temp Pulse Resp B/P (MAP) Pulse Ox O2 Delivery O2 Flow Rate FiO2 05/28/19 11:00 98.1 81 18 147/86 (106) 93 Room Air 98.1 05/28/19 08:41 2.0 I & O 05/27/19 05/27/19 05/28/19 15:00 23:00 07:00 Intake Total 240 ml Balance 240 ml Physical Exam Physical Exam: GENERAL: Propped up in a chair, alert, looks comfortable HEENT: Both pupils are round and reacting. No conjunctival lesion, no lesion in the mouth. NECK: Supple, no JVP, no lymphadenopathy. LUNGS: Clear. HEART: S1, S2 regular. ABDOMEN: Obese, soft, nontender : Erickson in place EXTREMITIES: Right lower extremity the foot, ankle and most of the leg up to below knee has mild red, no gross warmth and min tender, ankle is less tender and less swollen. Tubigrips SKIN: Vitiligo. Tinea between the toes and some cracks in the skin from a dry skin on the heel. Right inguinal tender lymphadenopathy as well as a yeast infection in the skin in to the groin. NEUROLOGIC: Nonfocal [facility] clean General: Alert, Oriented X3, Cooperative, No acute distress Heart: Regular rate, Normal S1, Normal S2, Other (sinus tachy) Lungs: Clear Abdomen: Normal bowel sounds, Soft, No hepatosplenomegaly, No masses, Other (diffuse mild tenderness) Extremities: No clubbing, No cyanosis, Other (RLE tender, swollen 3+) Skin: No rashes, Other (RLE rash as below) Review of Systems Review of Systems: (-) CP, SOB Assessment and Plan Assessmemt and Plan Problems Medical Problems: (1) Cellulitis Status: Acute (2) Sepsis Status: Acute Plan: continue IV abx wound intermediate meds labs dvt ppx full code Comment Review of Relevant I have reviewed the following items miracle (where applicable) has been applied. LINDSEY LOWE III DO May 28, 2019 11:30
--- NOTE | 2019-05-28 12:27 | NUR ---
SW following. Discussed with RN, pt is not going to need oxygen upon discharge and has been given instructions for getting his sleep study orders and results to find out about getting a CPAP. No further SW needs. Anticipate discharge home with self care today.
[2019-05-28 15:00] VITALS: BP 135/95
--- NOTE | 2019-05-28 17:13 | NUR ---
Discharge Note: Patient was discharged home with self care. Patients IJ triple lumen central line was discontinued without any complications per RN. Patients family at the bedside at the time of discharge education. Patient was given discharge summary/instructions, follow-ups, prescriptions and educational material. Patients antibiotic prescriptions were called into patients preferred pharmacy. Patient did not have any further questions or concerns. Patient was taken down to the main entrance via wheelchair with all personal belongings accompanied by US Megan, where patients family was waiting for him to take him home.
--- NOTE | 2019-05-28 23:33 | DS ---
DATE OF DISCHARGE: 05/28/2019 ADMISSION DIAGNOSES: Sepsis and cellulitis. DISCHARGE DIAGNOSES: Resolving sepsis, resolving cellulitis, morbid obesity (he is around 500 pounds). HOSPITAL COURSE: The patient is a pleasant 28-year-old male who weighs over 500 pounds, who was admitted with sepsis and he had right lower extremity cellulitis. We gave him IV antibiotics. He was in the ICU for a day or two. We also gave him fluids, did some physical therapy, occupational therapy and wound care. Today, I saw him and examined him. PHYSICAL EXAMINATION: HEART: Tones were normal. LUNGS: Clear. ABDOMEN: Soft and obese. EXTREMITIES: The cellulitis is resolving. We plan to discharge to home with close outpatient followup. DISPOSITION: Home. ACTIVITY: As tolerated. DIET: Low sodium. MEDICATIONS: Please see the MRAD. TOTAL TIME: 33 minutes. LINDSEY LOWE DO DR: RADHA/rogers JOB#: [id number] / [id number]
== END 2019-05-28 17:20 | disposition home or self-care (01) | DRG 871 ==
LOC: ER 11:56 → 1 WEST ICU 13:45 → 5 SOUTH 05-25 19:45
PROVIDERS: ADMIT Internal Medicine; ATTEND Internal Medicine
DX: A41.9 Sepsis, unspecified organism (principal); N17.0 Acute kidney failure with tubular necrosis; J96.91 Respiratory failure, unspecified with hypoxia; R65.21 Severe sepsis with septic shock; L03.115 Cellulitis of right lower limb; L03.116 Cellulitis of left lower limb; Z68.45 Body mass index [BMI] 70 or greater, adult; E66.01 Morbid (severe) obesity due to excess calories; I10 Essential (primary) hypertension; Z82.49 Family history of ischemic heart disease and other diseases of the circulatory system; Z98.84 Bariatric surgery status; Z79.899 Other long term (current) drug therapy; Z91.013 Allergy to seafood
CPT/HCPCS: 36415; 71045; 71046; 76770; 80048; 80053; 81001; 82550; 83605; 83880; 84145; 84484; 85007; 85025; 85610; 85651; 87040; 87804; 90471; 90686; 93005; 93970; 96365; 96375; J1170; J1644; J2248; J2405; J2543; J3010; J3370; J7030; J7040; P9045; 99285-25; G0378